=== PATIENT | male | born 1960 | race Caucasian/White ===

== ENCOUNTER 2017-01-29 16:59 | Inpatient (IN) ==
[2017-01-29] MEDS ORDERED: D5% in Water 1,000 ML IVC PRN (17:55)
[2017-01-29] MEDS ORDERED: Dextrose Gel 15 GM PO PRN ×2 (17:55)
[2017-01-29] MEDS ORDERED: *HR* Dextrose 50 % in Water (Syg) 50 ML SYRINGE IVP PRN (17:55)
[2017-01-29] MEDS ORDERED: Insulin DETEMIR 100 UNIT/ML per UNIT SQ ONE (21:00)
[2017-01-29] MEDS: Icosapent Ethyl [Vascepa] 1 GM PO SCH (21:20)
[2017-01-29] MEDS: Pregabalin 75 MG CAPSULE PO SCH (21:24)
[2017-01-29] MEDS: Insulin LISPRO 300 UNITS/3 ML VIAL SQ SCH (22:00)
[2017-01-30 05:26] LABS: Basophils # 0.1 K/mcL (0.0-0.2); Basophils % 1.1 %; Eosinophils # 0.3 K/mcL (0.0-0.6); Eosinophils % 3.2 %; Hematocrit 43.6 % (37.5-50.1); Hemoglobin 15.4 g/dL (12.9-16.9); Immature Granulocytes % 0.5 % (0-4); Lymphocytes # 2.3 K/mcL (0.6-4.6); Lymphocytes % 24.7 %; Mean Corpuscular HGB Conc 35.3 g/dL (31.6-35.5); Mean Corpuscular Hemoglobin 30.9 pg (28.0-33.3); Mean Corpuscular Volume 87.4 fL (83.0-100.0); Mean Platelet Volume 12.7 fL (9.4-12.4); Monocytes % 10.3 %; Neutrophils # 5.6 K/mcL (1.6-8.9); Platelet Count 172 K/mcL (140-400); Red Blood Count 4.99 M/mcL (4.19-5.50); Red Cell Distribution Width 13.2 % (11.5-14.5); Segmented Neutrophils % 60.2 %
[2017-01-30 05:39] LABS: BUN/Creatinine Ratio 21 (6-26); Blood Urea Nitrogen 16 mg/dL (8-26); Calcium 9.3 mg/dL (8.6-10.8); Carbon Dioxide 21 mEq/L (19-29); Chloride 105 mEq/L (98-109); Glucose 151 mg/dL (70-99); Osmolality,Calculated 288 (280-300); Potassium 3.8 mEq/L (3.5-4.5); Sodium 137 mEq/L (136-145); eGFR For African Americans > 60 (> 60); eGFR For Non-African Americans > 60 (> 60)
[2017-01-30] MEDS: Insulin LISPRO 300 UNITS/3 ML VIAL SQ SCH ×4 (07:48→21:00)
[2017-01-30] MEDS: Icosapent Ethyl [Vascepa] 1 GM PO SCH ×2 (08:30→16:40)
[2017-01-30] MEDS: Pregabalin 75 MG CAPSULE PO SCH ×2 (08:36→21:00)
[2017-01-30] MEDS: *HR* Metformin 500 MG TABLET PO SCH ×2 (08:36→16:40)
[2017-01-30] MEDS: Aspirin 81 MG TAB.CHEW PO SCH (08:36)
[2017-01-30] MEDS ORDERED: Lisinopril 20 MG TABLET PO SCH (09:00)
--- NOTE | 2017-01-30 09:14 | Internal Med History&Physical ---
Date of Encounter: 01/31/17 Time of Encounter: 09:43 Assessment and Plan (1) CVA (cerebral vascular accident) Current visit: No Status: Acute S/P acute CVA isthmic in nature . Unfortunately he was not a candidate for thrombolytics. CT shows right parietal are and internal capsule affected . Will need to continue to provide supportive care . Continue his medications . Rehab consults sent. Qualifiers: CVA mechanism: occlusion Precerebral and cerebral artery: middle cerebral artery Laterality of affected vessel: right Qualified Code(s): I63.511 - Cerebral infarction due to unspecified occlusion or stenosis of right middle cerebral artery (2) Diabetes 1.5, managed as type 2 Current visit: Yes Status: Chronic hx of long uncontrolled DM on Insulin at the present time his last HBA1c done at [facility] was 13. Wi need to reeducate him on his diet ,etc He admits ot being non complaint Continue resent medication and adjust his insulin as needed (3) Essential (primary) hypertension Current visit: Yes Status: Chronic he is on meds for his HTN continue present medications (4) Peripheral angiopathy Current visit: Yes Status: Chronic pt is a vasculopath he has peripheral vascular disease mostprominent in his right side , he had seen a vascular surgeon in past and was treated conservatively . he needs to quit tobacco completely .He understand will start him on a patch (5) Hyperlipidemia Current visit: Yes Status: Chronic his lipids have been high and not well controlled especially his triglycerids.This all could also have been due to his non compliance and uncontrolled DM onces DM is controlled then his meds should be adjusted if needed He is on appropriate meds Qualifiers: Hyperlipidemia type: mixed hyperlipidemia Qualified Code(s): E78.2 - Mixed hyperlipidemia (6) Tobacco abuse Current visit: Yes Status: Chronic discussed with him in length the need to quit tobacco. he understands start on Nicotine patch May benefit with chantax however he needs to be ready . (7) Diabetic ulcer of foot associated with diabetes mellitus due to underlying condition, limited to breakdown of skin Current visit: Yes Status: Acute ulcer and skin care Qualifiers: Laterality: left Qualified Code(s): E08.621 - Diabetes mellitus due to underlying condition with foot ulcer; L97.521 - Non-pressure chronic ulcer of other part of left foot limited to breakdown of skin (8) Multinodular goiter (nontoxic) Current visit: Yes Status: Acute incidental finding when he had dopplers of his carotid he needs to have further assessment . Will order ultrasound of the thyroid to assess nodules TSH and T4 will this is an incidental finding further workup will be done during this admission Internal Medicine - H&P: HPI Admitted From: Intrahospital Transfer (Transfered from [facility]) History of present illness: Mr. Nino is a 56 year old male was seen on few days ago in the ED at [facility] when he woke up in the morning and noticed that he was unable to to ut on his clothes. he was having difficulty in standing and using his left side . At that time it couldn't be determined the time of his stroke. he was sent to [facility] for further management and treatment . Pt denied that he had chest pain nausea vomiting or diarrhea No palpitation dizziness or any other complains suggestive of preemptive symptoms of stoke before he went to sleep . He had devleoped complete paralysis on his left side . He was admitted and treated and transferred to [facility] for his rehab At the present [facility] other then his inability to move his left side he is doing fine and defines any complains. He denies any chest pain SOB palpation , orthopnea nausea vomiting or diarrhea Some frequency in urination otherwise no burning in urine . No headache ,vision issues burning pain in legs etc. Past Med Surg Social Fam HX - Past Medical History Medical history: diabetes, hyperlipidemia, hypertension - Past Surgical History Surgical History: no surgical history, LE vascular intervention (has PVD follows with vascular surgon Left leg angiogram done but no intervention) - Social History Smoking Status: Current every day smoker Alcohol use: none Drug use: none Internal Medicine - H&P: Meds Atorvastatin [Lipitor] 80 mg PO HS 01/29/17 [History] Clopidogrel [Plavix] 75 mg PO DAILY 01/29/17 [History] Icosapent Ethyl [Vascepa] 1 gm PO BID 01/29/17 [History] Insulin Glargine,Hum.rec.anlog [Lantus Solostar] 40 unit SQ HS 01/29/17 [History ] Lisinopril [Zestril] 20 mg PO DAILY 01/29/17 [History] Pregabalin [Lyrica] 300 mg PO BID 01/29/17 [History] metFORMIN [Glucophage] 1,000 mg PO BIDWM 01/29/17 [History] Allergies No Known Allergies Allergy (Verified 01/26/17 10:17) All Systems PM: A 10-system review of systems was performed and is negative for pertinent findings except as documented above in the HPI. - Constitutional Constitutional: as per HPI, weakness, no chills, no excessive sweating, no fatigue, no fever(s), no falls, no lethargy, no malaise, no night sweats, no weight gain Additional comments: wekaness in his left side - EENT Eyes: no blurry vision, no change in vision, no dry eye, no pain, no photophobia , no seeing flashes Additional comments: mild redness noted in left eye Additional comments: no abnormality noted - Breasts Breasts: no mass, no nipple discharge, no skin changes, no swelling - Cardiovascular Cardiovascular ROS IM: no chest pain, no claudication, no diaphoresis, no dyspnea, no dyspnea on exertion, no edema, no lightheadedness, no orthopnea - Respiratory Respiratory: no cough, no dyspnea, no hemoptysis, no dyspnea on exertion, no wheezing, no pain on inspiration, no chest congestion - Gastrointestinal Gastrointestinal: no abdominal pain, no bloating, no constipation, no diarrhea, no dyspepsia, no dysphagia, no hematemesis, no nausea, no vomiting - Genitourinary Genitourinary ROS male: nocturia, urinary frequency, urinary hesitancy, no dysuria, no genital pain, no hematuria, no scrotal swelling, no testicular mass - Musculoskeletal Musculoskeletal ROS IM: no back pain - Neurological Neurological ROS: abnormal gait, focal weakness, weakness (left side weakness ) , no dizziness, no headache(s), no loss of vision, no memory loss - Psychiatric Additional comments: none - Hematologic/Lymphatic Hematologic/Lymphatic: no easy bleeding - Constitutional Vitals: Temp Pulse Resp BP Pulse Ox 98.2 F 77 20 124/69 93 01/30/17 07:02 01/30/17 07:02 01/30/17 07:02 01/30/17 07:02 01/30/17 07:02 General appearance: Present: A&O X 3, pleasant, no acute distress - Head Head exam: Present: normal inspection - Eye Additional comments: mild redness left eye noted mild flatening on forehead on left side but able to move and look upwards - Expanded ENT Exam Mouth exam: Present: tongue normal (mild deviation to the right side angle of mouth . no tongue deviation noted ) - Neck Neck exam general surgery: Present: normal inspection. Absent: lymphadenopathy , tenderness Additional comments: derease pulses on the left side when compared to right side no bruit appericiated - Respiratory Respiratory exam: Present: CTAB. Absent: chest wall tenderness, decreased breath sounds, prolonged expiratory phase, rhonchi, stridor, wheezes, tachypnea - Cardiovascular Cardiovascular exam: Present: RRR. Absent: irregular rhythm, JVD, tachycardia - GI/Abdominal GI/Abdominal exam: Present: normal bowel sounds, soft. Absent: mass, rebound, rigid, tenderness - Rectal Rectal exam: Present: deferred - Additional comments: Deferred - Extremities Exam Extremities exam: Present: warm Additional comments: right leg decreased pulses both pedal and femoral , same on the left side no bruits appreciated. he has ulcer left . - Back Exam Back exam: Present: normal inspection. Absent: muscle spasm, tenderness - Neurological Exam Neurological exam: Present: oriented X3, reflexes normal (left side weakness upper and lower limb . mild deviatiopn of angle of outh ,3,6 nerves seems intact , 10 and 12 th intact. angle of mouth deviated and mild flatening affecting 7th nerve, 11th nerve impacted unable to move his trapezius,9,10 12 nerves seems intact ), facial droop Additional comments: pt is neglecting his left side . 7th nerve impacted with deviation of angle of mouth , 34 5 6 th nerve seems intact , 9,10 11 12th intact . Tongue is midline no difficulty in swallowing .hearing is intact Left upper and lower limb unable to move . Reflex are grossly intact right to is upgoing left could do since he has dressing changed recently on his wound - Psychiatric Psychiatric exam: Present: normal mood (seems normal ) - Skin Additional comments: has wound on left foot . Skinother maxwell seems normal sensations seems normal at the present time Internal Med - H&P Results - Labs CBC & Chem 7: 01/31/17 05:45 01/31/17 05:45 Labs: Short CBC 01/30/17 Range/Units 05:15 WBC 9.3 (4.3-11.1) K/mcL Hgb 15.4 (12.9-16.9) g/dL Hct 43.6 (37.5-50.1) % Plt Count 172 (140-400) K/mcL Neutrophils # 5.6 (1.6-8.9) K/mcL [facility] 01/30/17 05:15 Sodium 137 Potassium 3.8 Chloride 105 Carbon Dioxide 21 BUN 16 Creatinine 0.78 Glucose 151 H Calcium 9.3
[2017-01-30] MEDS: Lisinopril 20 MG TABLET PO SCH (09:44)
[2017-01-30 18:02] LABS: Hemoglobin A1C 12.8 %
[2017-01-30] MEDS: Insulin DETEMIR 100 UNIT/ML X5UNITS SQ SCH (20:59)
[2017-01-31 05:58] LABS: Basophils # 0.1 K/mcL (0.0-0.2); Basophils % 1.3 %; Eosinophils # 0.3 K/mcL (0.0-0.6); Eosinophils % 3.9 %; Hematocrit 43.3 % (37.5-50.1); Hemoglobin 15.1 g/dL (12.9-16.9); Immature Granulocytes % 0.6 % (0-4); Lymphocytes # 2.2 K/mcL (0.6-4.6); Mean Corpuscular HGB Conc 34.9 g/dL (31.6-35.5); Mean Corpuscular Hemoglobin 30.8 pg (28.0-33.3); Mean Corpuscular Volume 88.4 fL (83.0-100.0); Mean Platelet Volume 12.6 fL (9.4-12.4); Monocytes % 11.2 %; Platelet Count 167 K/mcL (140-400); Red Cell Distribution Width 13.2 % (11.5-14.5)
[2017-01-31 06:15] LABS: BUN/Creatinine Ratio 26 (6-26); Blood Urea Nitrogen 19 mg/dL (8-26); Calcium 9.1 mg/dL (8.6-10.8); Carbon Dioxide 20 mEq/L (19-29); Chloride 106 mEq/L (98-109); Glucose 138 mg/dL (70-99); Osmolality,Calculated 288 (280-300); Potassium 4.1 mEq/L (3.5-4.5); Sodium 137 mEq/L (136-145); eGFR For African Americans > 60 (> 60); eGFR For Non-African Americans > 60 (> 60)
--- NOTE | 2017-01-31 07:57 | Internal Med Progress Note ---
Date of Encounter: 01/31/17 Time of Encounter: 07:55 - Assessment and plan (1) CVA (cerebral vascular accident) Current Visit: No Status: Acute Assessment and plan: Acute CVA , territory right middle Artery most likely . isomeric in nature . Left side paralysis , no issues with swallowing. Qualifiers: CVA mechanism: occlusion Precerebral and cerebral artery: middle cerebral artery Laterality of affected vessel: right Qualified Code(s): I63.511 - Cerebral infarction due to unspecified occlusion or stenosis of right middle cerebral artery (2) Diabetes 1.5, managed as type 2 Current Visit: Yes Status: Chronic Assessment and plan: Diabetes. Patient's blood sugar has been in poor control. At the present time blood sugar is reasonably well. We continue to monitor and adjust his medications as needed. (3) Essential (primary) hypertension Current Visit: Yes Status: Chronic Assessment and plan: Essential hypertension on multiple medications. Blood pressure is reasonably well control at the present time. No change in medication. Continue present regimen. (4) Peripheral angiopathy Current Visit: Yes Status: Chronic Assessment and plan: Patient has history of peripheral vascular disease including's stenosis in a in carotid arteries. Patient has a long history of smoking including history of diabetes and hypertension. At the present time patient is motivated to quit his tobacco. Continue present regimen. (5) Hyperlipidemia Current Visit: Yes Status: Chronic Assessment and plan: He has a history of hyperlipidemia mixed in nature. His set triglycerides as well as LDL were high. He is on high dose of Lipitor along with other supportive management. T Qualifiers: Hyperlipidemia type: mixed hyperlipidemia Qualified Code(s): E78.2 - Mixed hyperlipidemia (6) Tobacco abuse Current Visit: Yes Status: Chronic Assessment and plan: Patient is motivated to quit tobacco has not spoken with the last one week. Not interested in taking any nicotine. Will approach him again and need for needed had nicotine or other supportive management. (7) Diabetic ulcer of foot associated with diabetes mellitus due to underlying condition, limited to breakdown of skin Current Visit: Yes Status: Acute Qualifiers: Laterality: left Qualified Code(s): E08.621 - Diabetes mellitus due to underlying condition with foot ulcer; L97.521 - Non-pressure chronic ulcer of other part of left foot limited to breakdown of skin (8) Multinodular goiter (nontoxic) Current Visit: Yes Status: Acute Assessment and plan: Incidental finding out nodules in his quieter. Especially on the left side. An ultrasound has been requested labs pending. - Subjective Interval history: Patient denies any complaints today. He slept well. No complaints of chest pains nausea vomiting or diarrhea. No complaints of pain in his legs. No new issues. He had CT of the chest and yesterday to assess incidental finding of nodules which were reported from [facility]. He does not reveal any nodules. Reason I have is evidence of nodule in his thyroid and ultrasound is pending. - Constitutional Vitals: Temp Pulse Resp BP Pulse Ox 98.0 F 56 20 138/64 100 01/31/17 07:13 01/31/17 07:13 01/31/17 07:13 01/31/17 07:13 01/31/17 07:13 General appearance: Present: A&O X 3, pleasant, no acute distress, answers questions appropriately - Neck Additional comments: i have not been able to palapate his nodule which is an incidental finding on CT , no enlargement felt on examination - Respiratory Respiratory exam: Present: CTAB. Absent: chest wall tenderness, rhonchi, stridor, wheezes, tachypnea - Cardiovascular Cardiovascular exam: Present: RRR. Absent: diastolic murmur, JVD, systolic murmur - GI/Abdominal GI/Abdominal exam: Present: normal bowel sounds, soft. Absent: distended, guarding, rebound - Skin Additional comments: mild area o induraiton noted in side his thighs and bottom . Will keep an eye. No ulceration noted .He has diabetic foot ulcer .Wound care to continue dressing Internal Medicine: Result - Labs CBC & Chem 7: 01/31/17 05:45 01/31/17 05:45 Labs: Short CBC 01/31/17 Range/Units 05:45 WBC 8.7 (4.3-11.1) K/mcL Hgb 15.1 (12.9-16.9) g/dL Hct 43.3 (37.5-50.1) % Plt Count 167 (140-400) K/mcL Neutrophils # 5.0 (1.6-8.9) K/mcL BMP 01/31/17 05:45 Sodium 137 Potassium 4.1 Chloride 106 Carbon Dioxide 20 BUN 19 Creatinine 0.74 Glucose 138 H Calcium 9.1 - Impressions Impressions Chest CT 01/30/17 15:11 IMPRESSION: 1. No active cardiopulmonary disease 2. Pulmonary emphysema 3. Calcific Coronary atherosclerosis 4. Left thyroid nodule. Consider thyroid ultrasound for further evaluation D/ / Garry Ball MD / Garry Ball MD Interpreting Provider: Garry Ball MD Consult Discharge Plan - Plan Referrals: Nori Le MD [Primary Care Provider] -
[2017-01-31] MEDS: Insulin LISPRO 300 UNITS/3 ML VIAL SQ SCH ×4 (08:24→20:42)
[2017-01-31] MEDS: Aspirin 81 MG TAB.CHEW PO SCH (08:26)
[2017-01-31] MEDS: Lisinopril 20 MG TABLET PO SCH (08:26)
[2017-01-31] MEDS: *HR* Metformin 500 MG TABLET PO SCH ×2 (08:26→17:02)
[2017-01-31] MEDS: Pregabalin 75 MG CAPSULE PO SCH ×2 (08:26→21:12)
[2017-01-31] MEDS: Icosapent Ethyl [Vascepa] 1 GM PO SCH ×2 (08:27→17:03)
[2017-01-31] MEDS: Insulin DETEMIR 100 UNIT/ML X5UNITS SQ SCH (21:13)
[2017-02-01] MEDS: Insulin LISPRO 300 UNITS/3 ML VIAL SQ SCH ×4 (07:36→22:43)
[2017-02-01] MEDS: *HR* Metformin 500 MG TABLET PO SCH ×2 (08:15→17:58)
[2017-02-01] MEDS: Lisinopril 20 MG TABLET PO SCH (08:15)
[2017-02-01] MEDS: Aspirin 81 MG TAB.CHEW PO SCH (08:16)
[2017-02-01] MEDS: Pregabalin 75 MG CAPSULE PO SCH ×2 (08:16→22:42)
[2017-02-01] MEDS: Icosapent Ethyl [Vascepa] 1 GM PO SCH ×2 (08:16→17:59)
--- NOTE | 2017-02-01 08:55 | Internal Med Progress Note ---
Date of Encounter: 02/01/17 Time of Encounter: 08:52 - Assessment and plan (1) CVA (cerebral vascular accident) Current Visit: No Status: Acute Assessment and plan: CVA. And rehab and doing well. Continue present medications. Complaining of some lows bowel movements. Will assess his medications and request for C diff. Qualifiers: CVA mechanism: occlusion Precerebral and cerebral artery: middle cerebral artery Laterality of affected vessel: right Qualified Code(s): I63.511 - Cerebral infarction due to unspecified occlusion or stenosis of right middle cerebral artery (2) Diabetes 1.5, managed as type 2 Current Visit: Yes Status: Chronic Assessment and plan: Blood sugar 138 this morning. Present medications. Adjust medication that digit. (3) Essential (primary) hypertension Current Visit: Yes Status: Chronic (4) Peripheral angiopathy Current Visit: Yes Status: Chronic Assessment and plan: History of peripheral postural disease. He has a friend. He has stopped tobacco this should help his vascular disease as well. He does have an ulcer on his left foot likely a combination of diabetic neuropathy including PVD. (5) Hyperlipidemia Current Visit: Yes Status: Chronic Qualifiers: Hyperlipidemia type: mixed hyperlipidemia Qualified Code(s): E78.2 - Mixed hyperlipidemia (6) Tobacco abuse Current Visit: Yes Status: Chronic (7) Diabetic ulcer of foot associated with diabetes mellitus due to underlying condition, limited to breakdown of skin Current Visit: Yes Status: Acute Qualifiers: Laterality: left Qualified Code(s): E08.621 - Diabetes mellitus due to underlying condition with foot ulcer; L97.521 - Non-pressure chronic ulcer of other part of left foot limited to breakdown of skin (8) Multinodular goiter (nontoxic) Current Visit: Yes Status: Acute - Subjective Interval history: Patient denies any complaints today. No complaints of chest pain nausea vomiting or diarrhea. He slept well. He is participating in rehab. He is complaining of some loose bowel movement. Will will assess his medications and request for C diff. - Constitutional Vitals: Temp Pulse Resp BP Pulse Ox 97.6 F 52 18 141/58 97 02/01/17 07:24 02/01/17 07:24 02/01/17 07:24 02/01/17 07:24 02/01/17 07:24 General appearance: Present: A&O X 3, pleasant, no acute distress, answers questions appropriately - Neck Neck exam general surgery: Present: supple - Respiratory Respiratory exam: Present: CTAB. Absent: chest wall tenderness, decreased breath sounds, respiratory distress, rhonchi, tachypnea - Cardiovascular Cardiovascular exam: Present: RRR. Absent: diastolic murmur, JVD - GI/Abdominal GI/Abdominal exam: Present: normal bowel sounds, soft - Neurological Exam Additional comments: Is nearer examination is the same as before. Paralysis on the left side. To swallow with no difficulty Internal Medicine: Result - Labs CBC & Chem 7: 01/31/17 05:45 01/31/17 05:45 Consult Discharge Plan - Plan Referrals: Nori Le MD [Primary Care Provider] -
[2017-02-01] MEDS: Insulin DETEMIR 100 UNIT/ML X5UNITS SQ SCH (22:42)
[2017-02-02] MEDS: Insulin LISPRO 300 UNITS/3 ML VIAL SQ SCH ×4 (08:48→21:38)
[2017-02-02] MEDS: Aspirin 81 MG TAB.CHEW PO SCH (08:49)
[2017-02-02] MEDS: Lisinopril 20 MG TABLET PO SCH (08:49)
[2017-02-02] MEDS: Icosapent Ethyl [Vascepa] 1 GM PO SCH ×2 (08:49→19:01)
[2017-02-02] MEDS: Pregabalin 75 MG CAPSULE PO SCH ×2 (08:49→21:40)
[2017-02-02] MEDS: *HR* Metformin 500 MG TABLET PO SCH ×2 (08:49→18:53)
--- NOTE | 2017-02-02 11:51 | Internal Med Progress Note ---
Date of Encounter: 02/02/17 Time of Encounter: 11:49 - Assessment and plan (1) CVA (cerebral vascular accident) Current Visit: No Status: Acute Assessment and plan: Acute stroke left side. Stable no new change. Qualifiers: CVA mechanism: occlusion Precerebral and cerebral artery: middle cerebral artery Laterality of affected vessel: right Qualified Code(s): I63.511 - Cerebral infarction due to unspecified occlusion or stenosis of right middle cerebral artery (2) Diabetes 1.5, managed as type 2 Current Visit: Yes Status: Chronic Assessment and plan: Insulin-dependent diabetes.(4.4. in about his diet and need to have a better control. Seems but there is noncompliance on his part. Continue to reinforce.. (3) Essential (primary) hypertension Current Visit: Yes Status: Chronic Assessment and plan: Essential hypertension on multiple medications. Blood pressure is reasonably well control at the present time. No change in medication. Continue present regimen. (4) Peripheral angiopathy Current Visit: Yes Status: Chronic Assessment and plan: History of peripheral postural disease. He has a friend. He has stopped tobacco this should help his vascular disease as well. He does have an ulcer on his left foot likely a combination of diabetic neuropathy including PVD. (5) Hyperlipidemia Current Visit: Yes Status: Chronic Assessment and plan: He has a history of hyperlipidemia mixed in nature. His set triglycerides as well as LDL were high. He is on high dose of Lipitor along with other supportive management. T Qualifiers: Hyperlipidemia type: mixed hyperlipidemia Qualified Code(s): E78.2 - Mixed hyperlipidemia (6) Tobacco abuse Current Visit: Yes Status: Chronic Assessment and plan: Patient is motivated to quit tobacco has not spoken with the last one week. Not interested in taking any nicotine. Will approach him again and need for needed had nicotine or other supportive management. (7) Diabetic ulcer of foot associated with diabetes mellitus due to underlying condition, limited to breakdown of skin Current Visit: Yes Status: Acute Assessment and plan: He has bilateral foot ulcers. He also peripheral peripheral neuropathy. C Wound from left side has a small pocket of drainage noted . C/S sent.. He is afebrile white count is normal. Oral antibiotics most likely a mixed steve will consider starting him on oral antibiotics. Noted to have an ulcer with aschar on the right foot as well. Need to debride his wound to assess the extned of his ulcer .Xray feet both r/o Osteop May need an MRI . If needed may need to be seen by ware cleaner. Charcoat joints feet . Qualifiers: Laterality: left Qualified Code(s): E08.621 - Diabetes mellitus due to underlying condition with foot ulcer; L97.521 - Non-pressure chronic ulcer of other part of left foot limited to breakdown of skin (8) Multinodular goiter (nontoxic) Current Visit: Yes Status: Acute Assessment and plan: Labs pending , Ultrasound shows a nodule left lobe Needs further followup , possible FNA , refer to ENT for further assessment to [facility] (9) Charcot foot due to diabetes mellitus Current Visit: Yes Status: Acute Assessment and plan: Charcot feet both more on left side . Conservative treatment (10) Neuropathy Current Visit: Yes Status: Acute Assessment and plan: DM neuropathy poor sensations both feet (11) Obstructive apnea Current Visit: Yes Status: Acute Assessment and plan: pt has hx of sleep apnea. Apparently he did first study but never did the second one to get his mask and reading . Will attempt tp start CPAP whiel in the hospital . Titrate his oxygenation if he tolerates. There is considerable non compliance . Family giving conflicting information. - Subjective Interval history: He denies any complaints. States that he has some shortness of breath when he lays down flat. He denies any chest pain nausea vomiting or diarrhea no fever. Otherwise he feels the same as before. There is some conflicting information about his sleep apnea. Currently he may not be using the CPAP as ordered. - Constitutional Vitals: Temp Pulse Resp BP Pulse Ox 97.4 F L 54 16 125/95 97 02/01/17 19:10 02/01/17 19:10 02/01/17 19:10 02/01/17 19:10 02/01/17 19:10 General appearance: Present: A&O X 3, pleasant, no acute distress, answers questions appropriately - Head Head exam: Present: normal inspection - Eye Eye exam: Present: EOMI, PERRL - Neck Neck exam general surgery: Present: supple. Absent: tenderness, nuchal rigidity - Respiratory Respiratory exam: Present: CTAB. Absent: respiratory distress, rhonchi, stridor , wheezes, tachypnea - Cardiovascular Cardiovascular exam: Present: RRR. Absent: JVD - Expanded Lower Extremities Exam Foot/Toe exam: Present: amputation (lt small toe), deformity (Charcoat joints Wound both feet , left foot old ulcer ,has a pcoket of pus that came out , right foot aschar , needs debriment . ) - Neurological Exam Neurological exam: Present: alert, altered, oriented X3 Additional comments: No new change Paralysis. Left side upper and lower limb Internal Medicine: Result - Labs CBC & Chem 7: 01/31/17 05:45 01/31/17 05:45 - Impressions Impressions Thyroid Ultrasound 02/01/17 09:30 IMPRESSION: 1. Dominant 2.9 cm heterogeneous, hypoechoic nodule in the left thyroid lobe with mild internal vascularity. This nodule is amenable to ultrasound-guided FNA. D/ / 02/01/2017 11:03:32 Alena Sky MD / cheo Interpreting Provider: Alena Sky MD - Diagnostic Studies Other Images Additional comments: ultrasound thyroid nodule left lobe . Accessable for FNA Consult Discharge Plan - Plan Referrals: Nori Le MD [Primary Care Provider] -
[2017-02-02] MEDS: Insulin DETEMIR 100 UNIT/ML X5UNITS SQ SCH (21:39)
[2017-02-03] MEDS: *HR* Enoxaparin 40 MG/0.4 ML SYRINGE SQ SCH (05:35)
[2017-02-03 05:36] LABS: Basophils # 0.1 K/mcL (0.0-0.2); Basophils % 1.2 %; Eosinophils # 0.4 K/mcL (0.0-0.6); Eosinophils % 4.5 %; Hematocrit 42.4 % (37.5-50.1); Hemoglobin 14.6 g/dL (12.9-16.9); Immature Granulocytes % 0.6 % (0-4); Lymphocytes # 2.4 K/mcL (0.6-4.6); Lymphocytes % 27.2 %; Mean Corpuscular HGB Conc 34.4 g/dL (31.6-35.5); Mean Corpuscular Hemoglobin 30.2 pg (28.0-33.3); Mean Corpuscular Volume 87.8 fL (83.0-100.0); Mean Platelet Volume 12.4 fL (9.4-12.4); Monocytes % 11.6 %; Neutrophils # 4.9 K/mcL (1.6-8.9); Platelet Count 176 K/mcL (140-400); Red Blood Count 4.83 M/mcL (4.19-5.50); Red Cell Distribution Width 13.1 % (11.5-14.5); Segmented Neutrophils % 54.9 %
[2017-02-03 05:48] LABS: BUN/Creatinine Ratio 24 (6-26); Blood Urea Nitrogen 17 mg/dL (8-26); Calcium 9.2 mg/dL (8.6-10.8); Carbon Dioxide 22 mEq/L (19-29); Chloride 107 mEq/L (98-109); Glucose 133 mg/dL (70-99); Osmolality,Calculated 291 (280-300); Potassium 4.3 mEq/L (3.5-4.5); Sodium 139 mEq/L (136-145); eGFR For African Americans > 60 (> 60); eGFR For Non-African Americans > 60 (> 60)
[2017-02-03 06:05] LABS: Platelet Estimate Normal (Normal)
[2017-02-03] MEDS: Insulin LISPRO 300 UNITS/3 ML VIAL SQ SCH ×4 (07:37→22:00)
--- NOTE | 2017-02-03 07:54 | Internal Med Progress Note ---
Date of Encounter: 02/03/17 Time of Encounter: 07:51 - Assessment and plan (1) CVA (cerebral vascular accident) Current Visit: Yes Status: Acute Assessment and plan: CVA impacting left upper and lower limb . In rehab conitnue present treatment . Stable Qualifiers: CVA mechanism: occlusion Precerebral and cerebral artery: middle cerebral artery Laterality of affected vessel: right Qualified Code(s): I63.511 - Cerebral infarction due to unspecified occlusion or stenosis of right middle cerebral artery (2) Diabetes 1.5, managed as type 2 Current Visit: Yes Status: Chronic Assessment and plan: IIDDM doing fine , blood sugars better somewhat . Conitnue to adjsut his insulin as needed . Control diet (3) Essential (primary) hypertension Current Visit: Yes Status: Chronic Assessment and plan: Stable on present medications. (4) Peripheral angiopathy Current Visit: Yes Status: Chronic (5) Hyperlipidemia Current Visit: Yes Status: Chronic Assessment and plan: PVD moderate lower limbs onclduing carotid arteries . Aggressive management of blood sugar, lipids control and complete cessation of smoking would probably help controlling his symptoms . On plavix and Aspirin Qualifiers: Hyperlipidemia type: mixed hyperlipidemia Qualified Code(s): E78.2 - Mixed hyperlipidemia (6) Tobacco abuse Current Visit: Yes Status: Chronic (7) Diabetic ulcer of foot associated with diabetes mellitus due to underlying condition, limited to breakdown of skin Current Visit: Yes Status: Acute Assessment and plan: Diabetic Ulcres both sole of his feet . noted to have pus on left side above ulcer. Xray doesn't show any osteo . Will start on Doxycycline . 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 Will also consider getting MRI feet to r/o Osteo. . Pt doesnt have any ain ,otherwise he feels fine . Wound care is involved. Culture and sensitivity done Qualifiers: Laterality: left Qualified Code(s): E08.621 - Diabetes mellitus due to underlying condition with foot ulcer; L97.521 - Non-pressure chronic ulcer of other part of left foot limited to breakdown of skin (8) Multinodular goiter (nontoxic) Current Visit: Yes Status: Acute (9) Charcot foot due to diabetes mellitus Current Visit: Yes Status: Acute (10) Neuropathy Current Visit: Yes Status: Acute (11) Obstructive apnea Current Visit: Yes Status: Acute Assessment and plan: Start CPAP for night tolerated well till 2 Am then removed due to mask hurting him . Will adjust and continue to use CPAP he will need a CPAP machine at hime - Subjective Interval history: H he denies any complaints from any chest pain nausea vomiting or diarrhea. He slept well. He was able to use his CPAP until 202 in the morning however have removed his mask as it started hurting him know is of any fevers chills. Debridement officer foot ulcers done yesterday which showed a pass from left ulcer. X-rays done there is no evidence of osteomyelitis per x-rays no evidence of any foreign body. His stool was well formed and denies any diarrhea which she had complained earlier. Based on his overall picture he is not his C diff precautions have been removed. TSH is within normal limits. He has been referred to ENT for further assessment of his nodule in left thyroid lobe. - Constitutional Vitals: Temp Pulse Resp BP Pulse Ox 97.3 F L 69 16 128/75 95 02/03/17 07:00 02/03/17 07:00 02/03/17 07:00 02/03/17 07:00 02/03/17 07:00 General appearance: Present: A&O X 3, pleasant, no acute distress, answers questions appropriately - Neck Neck exam general surgery: Present: supple. Absent: tenderness, nuchal rigidity - Respiratory Respiratory exam: Present: CTAB. Absent: respiratory distress, rhonchi, stridor , wheezes Additional comments: Lung examination is within normal limits. air entry is equal on both lungs. No reason IS APPRECIATED. - Cardiovascular Cardiovascular exam: Present: RRR. Absent: distant heart sounds, irregular rhythm, JVD Additional comments: Heartrate regular rate rhythm no murmurs appreciated. - GI/Abdominal GI/Abdominal exam: Present: normal bowel sounds, soft. Absent: distended, firm , guarding, rebound - Expanded Lower Extremities Exam 1 - Small ulcer stage 2, clean base . Small ocket of ulcer abouve ulcer where skin is intact , drained. and culture sents.wound team involved 2 - skin removed. See wound clinic notes for details - Neurological Exam Neurological exam: Present: alert, altered, oriented X3 Additional comments: His neurological examination is as before. The no change. Internal Medicine: Result - Labs CBC & Chem 7: 02/03/17 05:20 02/03/17 05:20 Labs: Short CBC 02/03/17 Range/Units 05:20 WBC 8.9 (4.3-11.1) K/mcL Hgb 14.6 (12.9-16.9) g/dL Hct 42.4 (37.5-50.1) % Plt Count 176 (140-400) K/mcL Neutrophils # 4.9 (1.6-8.9) K/mcL BMP 02/03/17 05:20 Sodium 139 Potassium 4.3 Chloride 107 Carbon Dioxide 22 BUN 17 Creatinine 0.72 Glucose 133 H Calcium 9.2 - Impressions Impressions Foot X-Ray 02/02/17 11:44 IMPRESSION: No acute osseous abnormality of the right foot. No plain film evidence of osteomyelitis. D/ / Mario Medina MD / Mario Medina MD Interpreting Provider: Mario Medina MD - VTE Deep Vein Thrombosis/Pulmonary Embolism Present on Admission: No Consult Discharge Plan - Plan Referrals: Nori Le MD [Primary Care Provider] -
[2017-02-03] MEDS: *HR* Metformin 500 MG TABLET PO SCH ×2 (08:00→17:04)
[2017-02-03] MEDS: Pregabalin 75 MG CAPSULE PO SCH ×2 (08:01→21:40)
[2017-02-03] MEDS: Doxycycline 100 MG CAPSULE PO SCH ×2 (08:01→21:40)
[2017-02-03] MEDS: Lisinopril 20 MG TABLET PO SCH (08:01)
[2017-02-03] MEDS: Aspirin 81 MG TAB.CHEW PO SCH (08:01)
[2017-02-03] MEDS: Icosapent Ethyl [Vascepa] 1 GM PO SCH (08:01)
[2017-02-03] MEDS ORDERED: Silvasorb 44.4 ML TUBE TP SCH (12:00)
[2017-02-03] MEDS ORDERED: Silvasorb 44.4 ML TUBE TP PRN (16:52)
[2017-02-03] MEDS: Insulin DETEMIR 100 UNIT/ML X5UNITS SQ SCH (21:41)
[2017-02-04 05:16] LABS: Basophils # 0.1 K/mcL (0.0-0.2); Basophils % 1.2 %; Eosinophils # 0.3 K/mcL (0.0-0.6); Eosinophils % 2.8 %; Hematocrit 41.8 % (37.5-50.1); Hemoglobin 14.6 g/dL (12.9-16.9); Immature Granulocytes % 0.4 % (0-4); Lymphocytes # 2.5 K/mcL (0.6-4.6); Lymphocytes % 25.2 %; Mean Corpuscular HGB Conc 34.9 g/dL (31.6-35.5); Mean Corpuscular Hemoglobin 30.4 pg (28.0-33.3); Mean Corpuscular Volume 87.1 fL (83.0-100.0); Mean Platelet Volume 12.9 fL (9.4-12.4); Monocytes % 10.3 %; Neutrophils # 5.9 K/mcL (1.6-8.9); Platelet Count 183 K/mcL (140-400); Segmented Neutrophils % 60.1 %
[2017-02-04 05:32] LABS: BUN/Creatinine Ratio 22 (6-26); Blood Urea Nitrogen 15 mg/dL (8-26); Calcium 9.3 mg/dL (8.6-10.8); Carbon Dioxide 21 mEq/L (19-29); Chloride 106 mEq/L (98-109); Glucose 146 mg/dL (70-99); Osmolality,Calculated 287 (280-300); Potassium 4.1 mEq/L (3.5-4.5); Sodium 137 mEq/L (136-145); eGFR For African Americans > 60 (> 60); eGFR For Non-African Americans > 60 (> 60)
[2017-02-04] MEDS: *HR* Enoxaparin 40 MG/0.4 ML SYRINGE SQ SCH (06:39)
[2017-02-04] MEDS: Patient Taking Own Medication 1 EACH PO SCH ×2 (08:17→17:37)
[2017-02-04] MEDS: Aspirin 81 MG TAB.CHEW PO SCH (08:17)
[2017-02-04] MEDS: *HR* Metformin 500 MG TABLET PO SCH ×2 (08:17→17:37)
[2017-02-04] MEDS: Lisinopril 20 MG TABLET PO SCH (08:18)
[2017-02-04] MEDS: Pregabalin 75 MG CAPSULE PO SCH ×2 (08:19→21:12)
[2017-02-04] MEDS: Insulin LISPRO 300 UNITS/3 ML VIAL SQ SCH ×4 (08:20→21:01)
[2017-02-04] MEDS: Doxycycline 100 MG CAPSULE PO SCH ×2 (08:20→21:12)
--- NOTE | 2017-02-04 08:45 | Internal Med Progress Note ---
Date of Encounter: 02/04/17 Time of Encounter: 08:42 - Assessment and plan (1) CVA (cerebral vascular accident) Current Visit: Yes Status: Acute Assessment and plan: No new change. In rehab continue present management. Qualifiers: CVA mechanism: occlusion Precerebral and cerebral artery: middle cerebral artery Laterality of affected vessel: right Qualified Code(s): I63.511 - Cerebral infarction due to unspecified occlusion or stenosis of right middle cerebral artery (2) Diabetes 1.5, managed as type 2 Current Visit: Yes Status: Chronic Assessment and plan: His blood sugars are improving. Continue present regimen and adjust medications as needed. (3) Essential (primary) hypertension Current Visit: Yes Status: Chronic Assessment and plan: Blood pressure reasonably well-controlled. No new change. (4) Peripheral angiopathy Current Visit: Yes Status: Chronic Assessment and plan: The PVD as before continue present medication. (5) Hyperlipidemia Current Visit: Yes Status: Chronic Assessment and plan: No new change. On medications for his high triglycerides as well as LDL. Once his blood sugars are better control its expected this will impact his triglycerides as well. Qualifiers: Hyperlipidemia type: mixed hyperlipidemia Qualified Code(s): E78.2 - Mixed hyperlipidemia (6) Tobacco abuse Current Visit: Yes Status: Chronic Assessment and plan: He seems quite motivated at the present time to quit tobacco. (7) Diabetic ulcer of foot associated with diabetes mellitus due to underlying condition, limited to breakdown of skin Current Visit: Yes Status: Acute Assessment and plan: Diabetic ulcer. 03. [place] of the feet had been ordered to get to assess osteomyelitis.. Cultural sensitivity shows staph aureus Which is sensitive to doxycycline. Plan is to continue plan is to continue medications there is evidence of Sri mellitus we will need a long-term antibiotic use At least for 6 straight weeks Qualifiers: Laterality: left Qualified Code(s): E08.621 - Diabetes mellitus due to underlying condition with foot ulcer; L97.521 - Non-pressure chronic ulcer of other part of left foot limited to breakdown of skin (8) Multinodular goiter (nontoxic) Current Visit: Yes Status: Acute Assessment and plan: TSH is normal. He is scheduled to see ENT for biopsy in the next few weeks. This can also be done as an outpatient. (9) Charcot foot due to diabetes mellitus Current Visit: Yes Status: Acute Assessment and plan: Stable at the present time no new change. (10) Neuropathy Current Visit: Yes Status: Acute (11) Obstructive apnea Current Visit: Yes Status: Acute Assessment and plan: Need to adjust his mask as he has not used his CPAP last night will continue to follow. - Subjective Interval history: He he states that he did not sleep well last night. Have complained of some shortness of breath he denies any shortness of breath at the present time. Cough no chest pains did not use his CPAP apparently due to issues with the mask. No fever or chills. This morning he does not seem short of breath and looks his normal self. No pain no fever. - Constitutional Vitals: Temp Pulse Resp BP Pulse Ox 97.5 F L 64 14 111/60 96 02/04/17 07:00 02/04/17 07:00 02/04/17 07:00 02/04/17 07:00 02/04/17 07:00 General appearance: Present: A&O X 3, pleasant, no acute distress, answers questions appropriately - Head Head exam: Present: normocephalic - Eye Eye exam: Present: EOMI, PERRL - Respiratory Respiratory exam: Present: CTAB. Absent: respiratory distress, rhonchi, wheezes , tachypnea Additional comments: Although he complains of shortness of breath today. He does not seem to be in distress. If pulse ox is 98% and above. There is no evidence of any lease. Examination 8 entries equal on both sides. Appreciate any rales or crackles or rhonci. - Cardiovascular Cardiovascular exam: Present: RRR. Absent: JVD Additional comments: No JV D or heptojuglar reflux noted . No Peter Garcia either. - GI/Abdominal GI/Abdominal exam: Present: normal bowel sounds, soft. Absent: distended, guarding, rigid - Expanded Lower Extremities Exam Foot/Toe exam: Present: laceration (he has ulcers both feet wound care on goging no change ) - Neurological Exam Additional comments: His near neurological examination is same as before. To avoid the left side. He is alert oriented and cooperative. Paralysis on the side. No new change. Internal Medicine: Result - Labs CBC & Chem 7: 02/04/17 05:00 02/04/17 05:00 Labs: Short CBC 02/04/17 Range/Units 05:00 WBC 9.8 (4.3-11.1) K/mcL Hgb 14.6 (12.9-16.9) g/dL Hct 41.8 (37.5-50.1) % Plt Count 183 (140-400) K/mcL Neutrophils # 5.9 (1.6-8.9) K/mcL BMP 02/04/17 05:00 Sodium 137 Potassium 4.1 Chloride 106 Carbon Dioxide 21 BUN 15 Creatinine 0.68 L Glucose 146 H Calcium 9.3 - VTE Deep Vein Thrombosis/Pulmonary Embolism Present on Admission: No Consult Discharge Plan - Plan Referrals: Nori Le MD [Primary Care Provider] -
[2017-02-04] MEDS: Insulin DETEMIR 100 UNIT/ML X5UNITS SQ SCH (21:12)
[2017-02-05] MEDS: *HR* Enoxaparin 40 MG/0.4 ML SYRINGE SQ SCH (06:16)
[2017-02-05] MEDS: Patient Taking Own Medication 1 EACH PO SCH ×2 (08:00→17:27)
[2017-02-05] MEDS: Insulin LISPRO 300 UNITS/3 ML VIAL SQ SCH ×4 (08:42→20:47)
--- NOTE | 2017-02-05 08:42 | Internal Med Progress Note ---
Date of Encounter: 02/05/17 Time of Encounter: 08:39 - Assessment and plan (1) CVA (cerebral vascular accident) Current Visit: Yes Status: Acute Assessment and plan: Continue present management. No new change stable. Qualifiers: CVA mechanism: occlusion Precerebral and cerebral artery: middle cerebral artery Laterality of affected vessel: right Qualified Code(s): I63.511 - Cerebral infarction due to unspecified occlusion or stenosis of right middle cerebral artery (2) Diabetes 1.5, managed as type 2 Current Visit: Yes Status: Chronic Assessment and plan: His blood sugars are better control can you present management. (3) Essential (primary) hypertension Current Visit: Yes Status: Chronic Assessment and plan: Blood pressure is stable. Continue present management. (4) Peripheral angiopathy Current Visit: Yes Status: Chronic Assessment and plan: No new complaint. Stable continue present medication. (5) Hyperlipidemia Current Visit: Yes Status: Chronic Assessment and plan: Fasting lipids in the on Tuesday. I was continue present medication. Qualifiers: Hyperlipidemia type: mixed hyperlipidemia Qualified Code(s): E78.2 - Mixed hyperlipidemia (6) Tobacco abuse Current Visit: Yes Status: Chronic (7) Diabetic ulcer of foot associated with diabetes mellitus due to underlying condition, limited to breakdown of skin Current Visit: Yes Status: Acute Assessment and plan: Diabetic ulcers on both feet. MRI shows no osteomyelitis. There is cellulitis on the left foot is grown staph aureus which is sensitive to doxycycline plan is to continue oral antibiotics for at least 10 days. Can you present wound management. Qualifiers: Laterality: left Qualified Code(s): E08.621 - Diabetes mellitus due to underlying condition with foot ulcer; L97.521 - Non-pressure chronic ulcer of other part of left foot limited to breakdown of skin (8) Multinodular goiter (nontoxic) Current Visit: Yes Status: Acute Assessment and plan: Stable land is to have a follow-up with ENT for fine needle biopsy of his left nodule. (9) Charcot foot due to diabetes mellitus Current Visit: Yes Status: Acute (10) Neuropathy Current Visit: Yes Status: Acute (11) Obstructive apnea Current Visit: Yes Status: Acute Assessment and plan: He was able to use his CPAP last night. Seems to have helped. - Subjective Interval history: No new complaints today. He slept well last night. He was able to use his CPAP no nausea vomiting diarrhea. In these feet [place] chest pains and shortness of breath or any other complaints. - Constitutional Vitals: Temp Pulse Resp BP Pulse Ox 97.6 F 73 16 117/68 99 02/05/17 07:56 02/05/17 07:56 02/05/17 07:56 02/05/17 07:56 02/05/17 07:56 General appearance: Present: A&O X 3, pleasant, no acute distress, answers questions appropriately - Head Head exam: Present: normocephalic - Eye Eye exam: Present: EOMI, PERRL - ENT ENT exam: Present: mucous membranes moist - Neck Neck exam general surgery: Present: supple. Absent: tenderness, nuchal rigidity - Respiratory Respiratory exam: Present: CTAB, wheezes. Absent: respiratory distress, rhonchi , stridor Additional comments: Lung his lung examination is within normal limits. There is no no rhonchi or crackles. Air entry is equal on both sides. - Cardiovascular Cardiovascular exam: Present: RRR. Absent: diastolic murmur, distant heart sounds, JVD Additional comments: Heart rate is regular rate and rhythm. No murmurs or gallop appreciated. - GI/Abdominal GI/Abdominal exam: Present: normal bowel sounds, soft. Absent: distended, guarding, rebound Additional comments: Abdominal examination is within normal limits. bowel sounds are positive. - Neurological Exam Neurological exam: Present: CN II-XII intact, oriented X3 Additional comments: He had recent CVA affecting his left side. There is no new change. His neurological examination is stable. Internal Medicine: Result - Labs CBC & Chem 7: 02/04/17 05:00 02/04/17 05:00 - Impressions Impressions Foot MRI 02/04/17 09:32 IMPRESSION: 1. No evidence for osteomyelitis. 2. Likely ulceration along the plantar and lateral aspect of the midfoot with no underlying organized fluid collection identified. 3. Mild focal nonspecific enhancement of the subcutaneous tissues at the plantar foot adjacent to the 1st metatarsal head with no organized fluid collection identified at this site. 4. Tenosynovitis involving the proximal flexor hallucis longus tendon sheath. 5. Nonspecific subcutaneous edema of the dorsal soft tissues without corresponding enhancement. D/ / Gurdeep Moreno MD / Gurdeep Moreno MD Interpreting Provider: Gurdeep Moreno MD Foot MRI 02/04/17 09:32 IMPRESSION: Shallow soft tissue ulcerations along the plantar aspect of the foot without evidence of focal abscess. Mild enhancing soft tissue edema suggesting cellulitis. No evidence of osteomyelitis. Motion artifact severely degrades exam. D/ / 02/04/2017 14:23:29 Sahil Redman MD / brian Interpreting Provider: Sahil Redman MD - VTE Deep Vein Thrombosis/Pulmonary Embolism Present on Admission: No Consult Discharge Plan - Plan Referrals: Nori Le MD [Primary Care Provider] -
[2017-02-05] MEDS: Lisinopril 20 MG TABLET PO SCH (08:47)
[2017-02-05] MEDS: Doxycycline 100 MG CAPSULE PO SCH ×2 (08:47→20:54)
[2017-02-05] MEDS: Pregabalin 75 MG CAPSULE PO SCH ×2 (08:48→20:54)
[2017-02-05] MEDS: Aspirin 81 MG TAB.CHEW PO SCH (08:48)
[2017-02-05] MEDS: *HR* Metformin 500 MG TABLET PO SCH ×2 (08:48→17:47)
[2017-02-05] MEDS: Insulin DETEMIR 100 UNIT/ML X5UNITS SQ SCH (20:54)
[2017-02-06] MEDS: *HR* Enoxaparin 40 MG/0.4 ML SYRINGE SQ SCH (06:20)
--- NOTE | 2017-02-06 07:50 | Internal Med Progress Note ---
Date of Encounter: 02/06/17 Time of Encounter: 07:48 - Assessment and plan (1) CVA (cerebral vascular accident) Current Visit: Yes Status: Acute Assessment and plan: No change continue present management. Qualifiers: CVA mechanism: occlusion Precerebral and cerebral artery: middle cerebral artery Laterality of affected vessel: right Qualified Code(s): I63.511 - Cerebral infarction due to unspecified occlusion or stenosis of right middle cerebral artery (2) Diabetes 1.5, managed as type 2 Current Visit: Yes Status: Chronic Assessment and plan: Continue present management and adjusted insulin as needed. (3) Essential (primary) hypertension Current Visit: Yes Status: Chronic Assessment and plan: . His last 2 readings systolic were around 140. Target needs to be close to 120. Where will adjust his medications accordingly. (4) Peripheral angiopathy Current Visit: Yes Status: Chronic Assessment and plan: No new change. Continue present medications and management. (5) Hyperlipidemia Current Visit: Yes Status: Chronic Assessment and plan: Stable lipids have been ordered for Tuesday. Plan is to reassess his triglycerides and LDL since his blood sugars are much better control now. Qualifiers: Hyperlipidemia type: mixed hyperlipidemia Qualified Code(s): E78.2 - Mixed hyperlipidemia (6) Tobacco abuse Current Visit: Yes Status: Chronic (7) Diabetic ulcer of foot associated with diabetes mellitus due to underlying condition, limited to breakdown of skin Current Visit: Yes Status: Acute Assessment and plan: No new change in his management. On doxycycline for localized infection. Qualifiers: Laterality: left Qualified Code(s): E08.621 - Diabetes mellitus due to underlying condition with foot ulcer; L97.521 - Non-pressure chronic ulcer of other part of left foot limited to breakdown of skin (8) Multinodular goiter (nontoxic) Current Visit: Yes Status: Acute Assessment and plan: No new change. Plan is to have a FNA . ENT which has been scheduled (9) Charcot foot due to diabetes mellitus Current Visit: Yes Status: Acute Assessment and plan: No new change. Symptomatic management. (10) Neuropathy Current Visit: Yes Status: Acute Assessment and plan: Pain is stable. Continue present management. (11) Obstructive apnea Current Visit: Yes Status: Acute Assessment and plan: He is tolerating CPAP at present pressure continue present management and setting. - Subjective Interval history: No new complaints today. He tolerated his CPAP last night. He feels that he is sleeping much better and is less tired in the morning. Not complain of any shortness of breath. No chest pain and nausea vomiting or any other complaints. - Constitutional Vitals: Temp Pulse Resp BP Pulse Ox 98.2 F 59 14 140/67 96 02/06/17 07:00 02/06/17 07:00 02/06/17 07:00 02/06/17 07:00 02/06/17 07:00 General appearance: Present: A&O X 3, pleasant, no acute distress, answers questions appropriately - Eye Eye exam: Present: EOMI, PERRL - ENT ENT exam: Present: mucous membranes moist - Neck Neck exam general surgery: Present: supple. Absent: tenderness, nuchal rigidity - Respiratory Respiratory exam: Present: CTAB. Absent: respiratory distress, rhonchi, stridor , wheezes Additional comments: Air entry is equal on both lungs. There is no wheeze or crackles - Cardiovascular Cardiovascular exam: Present: RRR. Absent: diastolic murmur, JVD Additional comments: Elias is the regular grade molybdenum no murmurs of Jaspal appreciated. - Expanded Lower Extremities Exam Foot/Toe exam: Present: deformity (All surface on plantar surfaces of feet. Wound care ) - Neurological Exam Additional comments: His neurological examination is same as before no increase in his deficit. He continues to ignore his left side. 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 Internal Medicine: Result - Labs CBC & Chem 7: 02/04/17 05:00 02/04/17 05:00 - VTE Deep Vein Thrombosis/Pulmonary Embolism Present on Admission: No Consult Discharge Plan - Plan Referrals: Nori eL MD [Primary Care Provider] -
[2017-02-06] MEDS: Insulin LISPRO 300 UNITS/3 ML VIAL SQ SCH ×4 (08:31→21:16)
[2017-02-06] MEDS: Lisinopril 20 MG TABLET PO SCH (08:36)
[2017-02-06] MEDS: Aspirin 81 MG TAB.CHEW PO SCH (08:36)
[2017-02-06] MEDS: Pregabalin 75 MG CAPSULE PO SCH ×2 (08:36→21:01)
[2017-02-06] MEDS: Doxycycline 100 MG CAPSULE PO SCH ×2 (08:36→21:01)
[2017-02-06] MEDS: *HR* Metformin 500 MG TABLET PO SCH ×2 (08:36→17:18)
[2017-02-06] MEDS: Patient Taking Own Medication 1 EACH PO SCH ×2 (13:34→17:18)
[2017-02-06] MEDS: Insulin DETEMIR 100 UNIT/ML X5UNITS SQ SCH (21:08)
[2017-02-07] MEDS: *HR* Enoxaparin 40 MG/0.4 ML SYRINGE SQ SCH (06:08)
[2017-02-07 06:21] LABS: Basophils # 0.1 K/mcL (0.0-0.2); Basophils % 1.3 %; Eosinophils # 0.3 K/mcL (0.0-0.6); Eosinophils % 3.5 %; Hematocrit 41.4 % (37.5-50.1); Hemoglobin 14.4 g/dL (12.9-16.9); Immature Granulocytes % 0.6 % (0-4); Lymphocytes # 2.6 K/mcL (0.6-4.6); Lymphocytes % 26.3 %; Mean Corpuscular HGB Conc 34.8 g/dL (31.6-35.5); Mean Corpuscular Hemoglobin 30.4 pg (28.0-33.3); Mean Corpuscular Volume 87.3 fL (83.0-100.0); Monocytes # 1.1 K/mcL (0.0-1.3); Monocytes % 10.9 %; Neutrophils # 5.6 K/mcL (1.6-8.9); Platelet Count 182 K/mcL (140-400); Red Blood Count 4.74 M/mcL (4.19-5.50); Segmented Neutrophils % 57.4 %
[2017-02-07 06:50] LABS: BUN/Creatinine Ratio 17 (6-26); Blood Urea Nitrogen 13 mg/dL (8-26); Calcium 9.4 mg/dL (8.6-10.8); Carbon Dioxide 25 mEq/L (19-29); Chloride 106 mEq/L (98-109); Glucose 96 mg/dL (70-99); Osmolality,Calculated 292 (280-300); Potassium 3.9 mEq/L (3.5-4.5); Sodium 141 mEq/L (136-145); eGFR For African Americans > 60 (> 60); eGFR For Non-African Americans > 60 (> 60)
[2017-02-07 07:12] LABS: Chol/HDL Ratio 4.1 (0-4.9)
--- NOTE | 2017-02-07 07:45 | Internal Med Progress Note ---
Date of Encounter: 02/07/17 Time of Encounter: 07:42 - Assessment and plan (1) CVA (cerebral vascular accident) Current Visit: Yes Status: Acute Assessment and plan: No new change. Continue present regimen. Qualifiers: CVA mechanism: occlusion Precerebral and cerebral artery: middle cerebral artery Laterality of affected vessel: right Qualified Code(s): I63.511 - Cerebral infarction due to unspecified occlusion or stenosis of right middle cerebral artery (2) Diabetes 1.5, managed as type 2 Current Visit: Yes Status: Chronic Assessment and plan: His blood sugar continues to improve. Sliding scale and continue to monitor. Make adjustments as needed. (3) Essential (primary) hypertension Current Visit: Yes Status: Chronic Assessment and plan: Stable (4) Peripheral angiopathy Current Visit: Yes Status: Chronic (5) Hyperlipidemia Current Visit: Yes Status: Chronic Assessment and plan: Fasting lipids noted all within normal range for his conditions. His triglycerides are well-controlled. His HDL is low, continue present medications. Qualifiers: Hyperlipidemia type: mixed hyperlipidemia Qualified Code(s): E78.2 - Mixed hyperlipidemia (6) Tobacco abuse Current Visit: Yes Status: Chronic (7) Diabetic ulcer of foot associated with diabetes mellitus due to underlying condition, limited to breakdown of skin Current Visit: Yes Status: Acute Assessment and plan: Continue wound management. On oral doxycycline for infected ulcer on left side. Qualifiers: Laterality: left Qualified Code(s): E08.621 - Diabetes mellitus due to underlying condition with foot ulcer; L97.521 - Non-pressure chronic ulcer of other part of left foot limited to breakdown of skin (8) Multinodular goiter (nontoxic) Current Visit: Yes Status: Acute (9) Charcot foot due to diabetes mellitus Current Visit: Yes Status: Acute (10) Neuropathy Current Visit: Yes Status: Acute (11) Obstructive apnea Current Visit: Yes Status: Acute - Subjective Interval history: No new complaints today. Been sleeping well. He was able to use his CPAP for 3 to 4 hours at night. Still not comfortable with using mask all night. No other complaints - Constitutional Vitals: Temp Pulse Resp BP Pulse Ox 97.9 F 52 16 117/57 95 02/07/17 07:26 02/07/17 07:26 02/07/17 07:26 02/07/17 07:26 02/07/17 07:26 General appearance: Present: A&O X 3, pleasant, no acute distress, answers questions appropriately - Eye Eye exam: Present: EOMI, PERRL - ENT ENT exam: Present: mucous membranes moist - Neck Neck exam general surgery: Present: supple. Absent: nuchal rigidity - Respiratory Respiratory exam: Absent: rhonchi, stridor, wheezes Additional comments: Air entry is equal on both lungs. No crackles appreciated. - Cardiovascular Cardiovascular exam: Present: RRR. Absent: diastolic murmur Additional comments: Her heart rate is normal rate and rhythm no murmurs appreciated. s - GI/Abdominal GI/Abdominal exam: Present: normal bowel sounds, soft. Absent: diminished bowel sounds, firm, guarding Internal Medicine: Result - Labs CBC & Chem 7: 02/07/17 06:09 02/07/17 06:09 Labs: Short CBC 02/07/17 Range/Units 06:09 WBC 9.8 (4.3-11.1) K/mcL Hgb 14.4 (12.9-16.9) g/dL Hct 41.4 (37.5-50.1) % Plt Count 182 (140-400) K/mcL Neutrophils # 5.6 (1.6-8.9) K/mcL BMP 02/07/17 06:09 Sodium 141 Potassium 3.9 Chloride 106 Carbon Dioxide 25 BUN 13 Creatinine 0.77 Glucose 96 Calcium 9.4 - VTE Deep Vein Thrombosis/Pulmonary Embolism Present on Admission: No Consult Discharge Plan - Plan Referrals: Nori Le MD [Primary Care Provider] -
[2017-02-07] MEDS: Doxycycline 100 MG CAPSULE PO SCH ×2 (08:15→21:12)
[2017-02-07] MEDS: Pregabalin 75 MG CAPSULE PO SCH ×2 (08:15→21:12)
[2017-02-07] MEDS: *HR* Metformin 500 MG TABLET PO SCH ×2 (08:15→18:40)
[2017-02-07] MEDS: Aspirin 81 MG TAB.CHEW PO SCH (08:16)
[2017-02-07] MEDS: Lisinopril 20 MG TABLET PO SCH (08:16)
[2017-02-07] MEDS: Patient Taking Own Medication 1 EACH PO SCH ×2 (08:30→18:40)
[2017-02-07] MEDS: Insulin LISPRO 300 UNITS/3 ML VIAL SQ SCH ×3 (15:38→21:15)
[2017-02-07] MEDS: Insulin DETEMIR 100 UNIT/ML X5UNITS SQ SCH (21:13)
[2017-02-08] MEDS: *HR* Enoxaparin 40 MG/0.4 ML SYRINGE SQ SCH (05:13)
--- NOTE | 2017-02-08 08:00 | Internal Med Progress Note ---
Date of Encounter: 02/08/17 Time of Encounter: 07:58 - Assessment and plan (1) CVA (cerebral vascular accident) Current Visit: Yes Status: Acute Assessment and plan: No new change left side affected continue present management and rehab Qualifiers: CVA mechanism: occlusion Precerebral and cerebral artery: middle cerebral artery Laterality of affected vessel: right Qualified Code(s): I63.511 - Cerebral infarction due to unspecified occlusion or stenosis of right middle cerebral artery (2) Diabetes 1.5, managed as type 2 Current Visit: Yes Status: Chronic Assessment and plan: stable meds adjusted doing well (3) Essential (primary) hypertension Current Visit: Yes Status: Chronic Assessment and plan: Stable (4) Peripheral angiopathy Current Visit: Yes Status: Chronic Assessment and plan: Vascuapath stable at the present time. (5) Hyperlipidemia Current Visit: Yes Status: Chronic Assessment and plan: stable continue present medications LDL and Trigycerides within range Qualifiers: Hyperlipidemia type: mixed hyperlipidemia Qualified Code(s): E78.2 - Mixed hyperlipidemia (6) Tobacco abuse Current Visit: Yes Status: Chronic (7) Diabetic ulcer of foot associated with diabetes mellitus due to underlying condition, limited to breakdown of skin Current Visit: Yes Status: Acute Assessment and plan: on DOxy for his cellulites on left foot ulcer which has improved a lot no longer has any discharge , wound size is getting smaller . right side wound no discharge getting better as well . Plan to continue Doxy for total of 10 days . Qualifiers: Laterality: left Qualified Code(s): E08.621 - Diabetes mellitus due to underlying condition with foot ulcer; L97.521 - Non-pressure chronic ulcer of other part of left foot limited to breakdown of skin (8) Multinodular goiter (nontoxic) Current Visit: Yes Status: Acute (9) Charcot foot due to diabetes mellitus Current Visit: Yes Status: Acute Assessment and plan: stable (10) Neuropathy Current Visit: Yes Status: Acute (11) Obstructive apnea Current Visit: Yes Status: Acute Assessment and plan: CPAP continue , some what non complaint - Subjective Interval history: No new complaints today. slep well . didnt use his CPAP last night . There is considerable element of non compliance. He did sleep on and off . No other complains. Taking his medications . - Constitutional Vitals: Temp Pulse Resp BP Pulse Ox 98.0 F 50 16 138/59 94 02/08/17 07:00 02/08/17 07:00 02/08/17 07:00 02/08/17 07:00 02/08/17 07:00 General appearance: Present: A&O X 3, pleasant, no acute distress, answers questions appropriately - Eye Eye exam: Present: EOMI, PERRL - ENT ENT exam: Present: mucous membranes moist - Neck Neck exam general surgery: Present: normal inspection. Absent: tenderness, nuchal rigidity - Respiratory Respiratory exam: Present: CTAB. Absent: respiratory distress, rhonchi, wheezes - Cardiovascular Cardiovascular exam: Present: RRR. Absent: irregular rhythm, JVD, rubs - GI/Abdominal GI/Abdominal exam: Present: normal bowel sounds, soft. Absent: guarding, rebound - Other Additional findings: Wound care per nursing On Doxycycline for local infeciton . e Internal Medicine: Result - Labs CBC & Chem 7: 02/07/17 06:09 02/07/17 06:09 - VTE Deep Vein Thrombosis/Pulmonary Embolism Present on Admission: No Consult Discharge Plan - Plan Referrals: Nori Le MD [Primary Care Provider] -
[2017-02-08] MEDS: Insulin LISPRO 300 UNITS/3 ML VIAL SQ SCH ×4 (08:17→21:27)
[2017-02-08] MEDS: Aspirin 81 MG TAB.CHEW PO SCH (08:59)
[2017-02-08] MEDS: Lisinopril 20 MG TABLET PO SCH (08:59)
[2017-02-08] MEDS: Pregabalin 75 MG CAPSULE PO SCH ×2 (08:59→21:22)
[2017-02-08] MEDS: *HR* Metformin 500 MG TABLET PO SCH ×2 (08:59→16:54)
[2017-02-08] MEDS: Doxycycline 100 MG CAPSULE PO SCH ×2 (08:59→21:22)
[2017-02-08] MEDS: Patient Taking Own Medication 1 EACH PO SCH ×2 (09:00→16:54)
[2017-02-08] MEDS: Insulin DETEMIR 100 UNIT/ML X5UNITS SQ SCH (21:23)
[2017-02-09] MEDS: *HR* Enoxaparin 40 MG/0.4 ML SYRINGE SQ SCH (04:59)
[2017-02-09] MEDS: Insulin LISPRO 300 UNITS/3 ML VIAL SQ SCH ×4 (08:27→21:04)
[2017-02-09] MEDS: Lisinopril 20 MG TABLET PO SCH (08:28)
[2017-02-09] MEDS: *HR* Metformin 500 MG TABLET PO SCH ×2 (08:28→17:20)
[2017-02-09] MEDS: Patient Taking Own Medication 1 EACH PO SCH ×2 (08:29→17:20)
[2017-02-09] MEDS: Pregabalin 75 MG CAPSULE PO SCH ×2 (08:29→21:05)
[2017-02-09] MEDS: Doxycycline 100 MG CAPSULE PO SCH ×2 (08:29→21:03)
[2017-02-09] MEDS: Aspirin 81 MG TAB.CHEW PO SCH (08:29)
--- NOTE | 2017-02-09 09:27 | Internal Med Progress Note ---
Date of Encounter: 02/09/17 Time of Encounter: 09:21 - Assessment and plan (1) CVA (cerebral vascular accident) Current Visit: Yes Status: Acute Assessment and plan: stable Qualifiers: CVA mechanism: occlusion Precerebral and cerebral artery: middle cerebral artery Laterality of affected vessel: right Qualified Code(s): I63.511 - Cerebral infarction due to unspecified occlusion or stenosis of right middle cerebral artery (2) Diabetes 1.5, managed as type 2 Current Visit: Yes Status: Chronic Assessment and plan: Blood sugar getting better continue present management (3) Essential (primary) hypertension Current Visit: Yes Status: Chronic Assessment and plan: stable Continue present medication (4) Peripheral angiopathy Current Visit: No Status: Chronic Assessment and plan: stable (5) Hyperlipidemia Current Visit: Yes Status: Chronic Assessment and plan: stable no new change Qualifiers: Hyperlipidemia type: mixed hyperlipidemia Qualified Code(s): E78.2 - Mixed hyperlipidemia (6) Tobacco abuse Current Visit: Yes Status: Chronic (7) Diabetic ulcer of foot associated with diabetes mellitus due to underlying condition, limited to breakdown of skin Current Visit: Yes Status: Acute Assessment and plan: improving . Continue present management Qualifiers: Laterality: left Qualified Code(s): E08.621 - Diabetes mellitus due to underlying condition with foot ulcer; L97.521 - Non-pressure chronic ulcer of other part of left foot limited to breakdown of skin (8) Multinodular goiter (nontoxic) Current Visit: Yes Status: Acute (9) Charcot foot due to diabetes mellitus Current Visit: Yes Status: Acute (10) Neuropathy Current Visit: Yes Status: Acute Assessment and plan: pain is stable no new change (11) Obstructive apnea Current Visit: Yes Status: Chronic Assessment and plan: need to adjsut his Mask again complaining of straps causing issues . - Subjective Interval history: Doing well no new complains. Not using CPAP due to mask issues otherwise no complains NO SOB , chest pain Palpitaiton or any other complains - Constitutional Vitals: Temp Pulse Resp BP Pulse Ox 97.6 F 52 16 136/68 92 02/09/17 07:00 02/09/17 07:00 02/09/17 07:00 02/09/17 07:00 02/09/17 07:00 General appearance: Present: A&O X 3, pleasant, no acute distress, answers questions appropriately - Eye Eye exam: Present: EOMI, PERRL - Neck Neck exam general surgery: Present: full ROM, supple. Absent: nuchal rigidity - Respiratory Respiratory exam: Present: CTAB. Absent: respiratory distress, rhonchi, wheezes , tachypnea - Cardiovascular Cardiovascular exam: Present: RRR. Absent: JVD Additional comments: occasional PVC otherwise no new change - GI/Abdominal GI/Abdominal exam: Present: normal bowel sounds, soft. Absent: distended, firm , guarding - Extremities Exam Extremities exam: Absent: pedal edema, tenderness Additional comments: wound is improving slowly . No discharge Internal Medicine: Result - Labs CBC & Chem 7: 02/07/17 06:09 02/07/17 06:09 - VTE Deep Vein Thrombosis/Pulmonary Embolism Present on Admission: No Consult Discharge Plan - Plan Referrals: Nori Le MD [Primary Care Provider] -
--- NOTE | 2017-02-09 15:59 | Psychological Evaluation ---
Date of Encounter: 02/09/17 Time of Encounter: 10:30 History of Present Illness History of present illness: Mr. Nino is a 56 year old male admitted to [facility] for inpatient rehabilitation following an ischemic stroke (right hemisphere). He was seen on this date to assess his current cognitive and emotional functioning. Past Medical History Medical history: Significant for diabetes, hypertension, hyperlipidemia and peripheral vascular disease. He acknowledged that he has been non-compliant with management of his diabetes and his HTN and has been a heavy (2 pack/day cigarette smoker). - Psychiatric History Additional Psychiatric History: There is no history of psychiatric hospitalization or mental health counseling. In addition, there is no history of suicidal ideation, intention or plans. Mr. Nino reported that his mother has a history of "nervous breakdown" and was hospitalized at one point. Home Medications and Allergies Atorvastatin [Lipitor] 80 mg PO HS 01/29/17 [History] Clopidogrel [Plavix] 75 mg PO DAILY 01/29/17 [History] Icosapent Ethyl [Vascepa] 1 gm PO BID 01/29/17 [History] Insulin Glargine,Hum.rec.anlog [Lantus Solostar] 40 unit SQ HS 01/29/17 [History ] Lisinopril [Zestril] 20 mg PO DAILY 01/29/17 [History] Pregabalin [Lyrica] 300 mg PO BID 01/29/17 [History] metFORMIN [Glucophage] 1,000 mg PO BIDWM 01/29/17 [History] 3 Allergy/AdvReac Type Severity Reaction Status Date / Time No Known Allergies Allergy Verified 01/26/17 10:17 Social History - Social History Social History: Mr. Nino is to his third . He believes they have been approximately 15 years. He has a son from his first marriage who lives in [place]. His current has two children (daughter age 18 and son age 17) who live with him and his . He also stated that his mother lives with them. Mr. Nino stated that his is his social support and he jokingly described her as "the warden". Mr. Nino was on disability prior to his recent stroke, for the neuropathy in his feet. 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 Before this hospital admission, he spent his days taking care of his dogs, doing the laundry for his mother and watching TV. His hobby is deer hunting. - Tobacco Use Smoking Status: Current every day smoker (2 packs/day) - Alcohol Use Alcohol Use: none Cognitive/Emotional Assessment - Cognitive Ability Additional Findings: Mr. Nino was alert, attentive and fully oriented. Speech was clear, effective and fluent. Thought processes were goal-directed, coherent and logical. He was able to follow two-step complex commands. He performed within the average range on measures of confrontational naming, attention and sentence repetition. On a measure of delayed verbal recall, he performed within the severely impaired range. He exhibited problems with storage and retrieval on new information. His performance was assisted with recognition (multiple choice ) and category cueing. Mr. Nino presented as aware of his cognitive strengths and weaknesses. - Emotional Status Additional Findings: Mr. Nino was pleasant, cooperative and friendly. He acknowledged that he has been feeling "very frustrated" by his physical limitations post-stroke. He noted that he becomes easily upset and "mad at myself" when he is unable to do tasks that had been "easy" for him before. He also reported that he initially felt "very weepy" and had a sense of no emotional control, but he stated this has improved. Mood appeared somewhat depressed/sad. Affect was appropriate in range and intensity and congruent with mood. He stated that he uses humor to cope with frustration and his current situation and he has not given up hope for his recovery. We spent some time talking about stroke recovery and the rehab process. Assessment & Plan - Diagnosis (1) Cognitive deficit due to recent cerebral infarction (2) Adjustment disorder with depressed mood - Treatment Plan Treatment Plan/Recommendations: Will provide supportive counseling as needed and monitor for signs of depression while Mr. Nino is an inpatient at [facility]. His level of frustration/discouragement may be improved by providing him with written updates /progress towards his rehab goals. Procedures - Session Time Session Start Time: 10:30 Session Stop Time: 11:00
[2017-02-09] MEDS: Insulin DETEMIR 100 UNIT/ML X5UNITS SQ SCH (21:04)
[2017-02-10] MEDS: *HR* Enoxaparin 40 MG/0.4 ML SYRINGE SQ SCH (05:30)
--- NOTE | 2017-02-10 08:11 | Internal Med Progress Note ---
Date of Encounter: 02/10/17 Time of Encounter: 08:08 - Assessment and plan (1) CVA (cerebral vascular accident) Current Visit: Yes Status: Acute Assessment and plan: stable no new changes in rehab Qualifiers: CVA mechanism: occlusion Precerebral and cerebral artery: middle cerebral artery Laterality of affected vessel: right Qualified Code(s): I63.511 - Cerebral infarction due to unspecified occlusion or stenosis of right middle cerebral artery (2) Diabetes 1.5, managed as type 2 Current Visit: Yes Status: Chronic Assessment and plan: conintue present management adjust insulin . Blood sugars getting better (3) Essential (primary) hypertension Current Visit: Yes Status: Chronic Assessment and plan: stable no new change (4) Peripheral angiopathy Current Visit: No Status: Chronic Assessment and plan: stable no new change (5) Hyperlipidemia Current Visit: Yes Status: Chronic Qualifiers: Hyperlipidemia type: mixed hyperlipidemia Qualified Code(s): E78.2 - Mixed hyperlipidemia (6) Tobacco abuse Current Visit: Yes Status: Chronic (7) Diabetic ulcer of foot associated with diabetes mellitus due to underlying condition, limited to breakdown of skin Current Visit: Yes Status: Acute Assessment and plan: stable wound care continues , improving slowly , Stop Doxy after 10 days of treatment . 3 more days and then stop Qualifiers: Laterality: left Qualified Code(s): E08.621 - Diabetes mellitus due to underlying condition with foot ulcer; L97.521 - Non-pressure chronic ulcer of other part of left foot limited to breakdown of skin (8) Multinodular goiter (nontoxic) Current Visit: Yes Status: Acute Assessment and plan: He is scheduled for ENT FNA in February (9) Charcot foot due to diabetes mellitus Current Visit: Yes Status: Acute (10) Neuropathy Current Visit: Yes Status: Acute Assessment and plan: stable . now new change pain is well controlled (11) Obstructive apnea Current Visit: Yes Status: Chronic Assessment and plan: continues to have issues with adjusting . Changed his mask again with different straps . Will continue to monitor . - Subjective Interval history: Doing well no new complains. Not using CPAP due to straps says it hurts . Overall doing well - Constitutional Vitals: Temp Pulse Resp BP Pulse Ox 98.1 F 55 18 134/66 97 02/09/17 19:00 02/09/17 19:00 02/09/17 19:00 02/09/17 19:00 02/09/17 19:00 General appearance: Present: A&O X 3, pleasant, no acute distress, answers questions appropriately - Eye Eye exam: Present: EOMI, PERRL - Neck Neck exam general surgery: Present: full ROM, supple. Absent: nuchal rigidity - Respiratory Respiratory exam: Present: CTAB. Absent: respiratory distress, stridor, wheezes - Cardiovascular Cardiovascular exam: Present: RRR. Absent: irregular rhythm, JVD - GI/Abdominal GI/Abdominal exam: Present: normal bowel sounds, soft. Absent: rebound, rigid - Extremities Exam Extremities exam: Absent: pedal edema, tenderness - Neurological Exam Neurological exam: Present: altered, oriented X3 Additional comments: No new complains Weakness left side stable Internal Medicine: Result - Labs CBC & Chem 7: 02/07/17 06:09 02/07/17 06:09 - VTE Deep Vein Thrombosis/Pulmonary Embolism Present on Admission: No Consult Discharge Plan - Plan Referrals: Nori Le MD [Primary Care Provider] -
[2017-02-10] MEDS: Doxycycline 100 MG CAPSULE PO SCH ×2 (08:50→21:48)
[2017-02-10] MEDS: Lisinopril 20 MG TABLET PO SCH (08:50)
[2017-02-10] MEDS: Aspirin 81 MG TAB.CHEW PO SCH (08:51)
[2017-02-10] MEDS: Pregabalin 75 MG CAPSULE PO SCH ×2 (08:51→21:49)
[2017-02-10] MEDS: *HR* Metformin 500 MG TABLET PO SCH ×2 (08:51→17:11)
[2017-02-10] MEDS: Insulin LISPRO 300 UNITS/3 ML VIAL SQ SCH ×4 (08:51→21:48)
[2017-02-10] MEDS: Patient Taking Own Medication 1 EACH PO SCH ×2 (08:54→18:00)
[2017-02-10] MEDS: Artificial Tears SOLN 15 ML BOTTLE BOTH EYES SCH ×2 (15:34→17:13)
[2017-02-10] MEDS: Melatonin 3 MG TABLET PO PRN (21:49)
[2017-02-10] MEDS: Insulin DETEMIR 100 UNIT/ML X5UNITS SQ SCH (21:49)
[2017-02-10] MEDS: Ibuprofen 800 MG TABLET PO PRN (21:50)
[2017-02-11] MEDS: *HR* Enoxaparin 40 MG/0.4 ML SYRINGE SQ SCH (06:07)
--- NOTE | 2017-02-11 07:24 | Internal Med Progress Note ---
Date of Encounter: 02/11/17 Time of Encounter: 07:20 - Assessment and plan (1) CVA (cerebral vascular accident) Current Visit: Yes Status: Acute Assessment and plan: no new changes s table Continue present management Qualifiers: CVA mechanism: occlusion Precerebral and cerebral artery: middle cerebral artery Laterality of affected vessel: right Qualified Code(s): I63.511 - Cerebral infarction due to unspecified occlusion or stenosis of right middle cerebral artery (2) Diabetes 1.5, managed as type 2 Current Visit: Yes Status: Chronic Assessment and plan: Blood sugars slowly improving .no new changes s table Continue present management (3) Essential (primary) hypertension Current Visit: Yes Status: Chronic Assessment and plan: Stable . No dizziness On KAN stable Continue present management (4) Peripheral angiopathy Current Visit: No Status: Chronic (5) Hyperlipidemia Current Visit: Yes Status: Chronic Qualifiers: Hyperlipidemia type: mixed hyperlipidemia Qualified Code(s): E78.2 - Mixed hyperlipidemia (6) Tobacco abuse Current Visit: Yes Status: Chronic (7) Diabetic ulcer of foot associated with diabetes mellitus due to underlying condition, limited to breakdown of skin Current Visit: Yes Status: Acute Assessment and plan: Continue to improve . 2 more days for oral Antibiotics . Stable Qualifiers: Laterality: left Qualified Code(s): E08.621 - Diabetes mellitus due to underlying condition with foot ulcer; L97.521 - Non-pressure chronic ulcer of other part of left foot limited to breakdown of skin (8) Multinodular goiter (nontoxic) Current Visit: Yes Status: Acute (9) Charcot foot due to diabetes mellitus Current Visit: Yes Status: Acute (10) Neuropathy Current Visit: Yes Status: Acute Assessment and plan: No pain . no new changes stable Continue present management (11) Obstructive apnea Current Visit: Yes Status: Chronic Assessment and plan: Using CPAP for few hours a night . Mask and strapes all adjusted again . Compliance is an issue I am hoping that slwoly he will increase using his CPAP Discussed with him again .He understands (12) Conjunctivitis Current Visit: Yes Status: Acute Assessment and plan: Most likely due to scratching his eyes. No obvious truama noted , congested , no discharge watery or serous noted. Warm compressors , and symptomatic treatment . Its improving . He has a hx of Retinopathy . 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 Plan is to send him for assessment of his retinopathy again Qualifiers: Conjunctivitis type: unspecified Laterality: left Qualified Code(s): H10.9 - Unspecified conjunctivitis - Subjective Interval history: He complained irritation in his left eye which he felt that he might have scratched. He was treated symptomatically . He denies any discharge feels that his irritation has improved no pain . He felt that he slept well tonight after taking medication . He used his CPAP for few hours still takes it off and is not getting used to using it all night No other complains . No SOB , palpitation nausea vomiting or diarrhea His Blood sugars are improving - Constitutional Vitals: Temp Pulse Resp BP Pulse Ox 97.3 F L 71 16 101/67 99 02/11/17 07:03 02/11/17 07:03 02/11/17 07:03 02/11/17 07:03 02/11/17 07:03 General appearance: Present: A&O X 3, pleasant, no acute distress, answers questions appropriately. Absent: severe distress - Eye Eye exam: Present: EOMI, PERRL Additional comments: both eye some what red no discharge , No lid swelling noted on the left eye as was seen yesterday .Seems to have improved with warm compressors. - ENT ENT exam: Present: mucous membranes moist - Neck Neck exam general surgery: Present: supple. Absent: tenderness, nuchal rigidity - Respiratory Respiratory exam: Present: CTAB Additional comments: Air entry all lung [place] no crackles or wheeze - Cardiovascular Cardiovascular exam: Present: RRR. Absent: JVD Additional comments: No murmurs or gallops noted - Extremities Exam Extremities exam: Present: warm. Absent: pedal edema Additional comments: foot wounds improving infection on left foot resolved . - Neurological Exam Additional comments: left paralysis no new change doing well . Internal Medicine: Result - Labs CBC & Chem 7: 02/07/17 06:09 02/07/17 06:09 - Impressions Impressions Foot MRI 02/04/17 09:32 IMPRESSION: Shallow soft tissue ulcerations along the plantar aspect of the foot without evidence of focal abscess. Mild enhancing soft tissue edema suggesting cellulitis. No evidence of osteomyelitis. Motion artifact severely degrades exam. D/ / 02/04/2017 14:23:29 Sahil Redman MD / brian Interpreting Provider: Sahil Redman MD - VTE Deep Vein Thrombosis/Pulmonary Embolism Present on Admission: No Consult Discharge Plan - Plan Referrals: Nori Le MD [Primary Care Provider] -
[2017-02-11] MEDS: Insulin LISPRO 300 UNITS/3 ML VIAL SQ SCH ×4 (07:48→20:51)
[2017-02-11] MEDS: Lisinopril 20 MG TABLET PO SCH (08:31)
[2017-02-11] MEDS: Pregabalin 75 MG CAPSULE PO SCH ×2 (08:31→20:51)
[2017-02-11] MEDS: Aspirin 81 MG TAB.CHEW PO SCH (08:31)
[2017-02-11] MEDS: *HR* Metformin 500 MG TABLET PO SCH ×2 (08:31→17:49)
[2017-02-11] MEDS: Doxycycline 100 MG CAPSULE PO SCH ×2 (08:31→20:50)
[2017-02-11] MEDS: Patient Taking Own Medication 1 EACH PO SCH ×2 (08:32→17:50)
[2017-02-11] MEDS: Artificial Tears SOLN 15 ML BOTTLE BOTH EYES SCH ×4 (08:32→20:50)
[2017-02-11] MEDS: Insulin DETEMIR 100 UNIT/ML X5UNITS SQ SCH (20:51)
[2017-02-12] MEDS: *HR* Enoxaparin 40 MG/0.4 ML SYRINGE SQ SCH (06:30)
--- NOTE | 2017-02-12 07:53 | Internal Med Progress Note ---
Date of Encounter: 02/12/17 Time of Encounter: 07:50 - Assessment and plan (1) CVA (cerebral vascular accident) Current Visit: Yes Status: Acute Assessment and plan: no new change In rehab and slowly improving Qualifiers: CVA mechanism: occlusion Precerebral and cerebral artery: middle cerebral artery Laterality of affected vessel: right Qualified Code(s): I63.511 - Cerebral infarction due to unspecified occlusion or stenosis of right middle cerebral artery (2) Diabetes 1.5, managed as type 2 Current Visit: Yes Status: Chronic Assessment and plan: conintue present treatment Blood sugars improving slowly (3) Essential (primary) hypertension Current Visit: Yes Status: Chronic Assessment and plan: stable no new change (4) Peripheral angiopathy Current Visit: No Status: Chronic (5) Hyperlipidemia Current Visit: Yes Status: Chronic Qualifiers: Hyperlipidemia type: mixed hyperlipidemia Qualified Code(s): E78.2 - Mixed hyperlipidemia (6) Tobacco abuse Current Visit: Yes Status: Chronic (7) Diabetic ulcer of foot associated with diabetes mellitus due to underlying condition, limited to breakdown of skin Current Visit: Yes Status: Acute Assessment and plan: continue to improve No new change Qualifiers: Laterality: left Qualified Code(s): E08.621 - Diabetes mellitus due to underlying condition with foot ulcer; L97.521 - Non-pressure chronic ulcer of other part of left foot limited to breakdown of skin (8) Multinodular goiter (nontoxic) Current Visit: Yes Status: Acute (9) Charcot foot due to diabetes mellitus Current Visit: Yes Status: Acute (10) Neuropathy Current Visit: Yes Status: Acute (11) Obstructive apnea Current Visit: Yes Status: Chronic Assessment and plan: non complaince continues . Plan to do night pulse ox to assess if he drops his oxygenations and if he would qualify for home oxygen at night . Check for pulse ox when he complains of SOB including his pulse Discussed with nursing staff . Not ot use pxygen if there is no requirement . (12) Conjunctivitis Current Visit: Yes Status: Acute Qualifiers: Conjunctivitis type: unspecified Laterality: left Qualified Code(s): H10.9 - Unspecified conjunctivitis - Subjective Interval history: no new complains . he slept well . He didn't use his CPAP complains that the new mask was not hooked up to the machine,Respiratory and nursing tells me that he refuses to use it . He slept well last night . occasionally using Oxygen which he feels helps him . Occasional miss beat . No evidence that he uses oxygen at home or has been assessed for hypoxia at night. he denies any chest pain Nausea vomiting or any other complains - Constitutional Vitals: Temp Pulse Resp BP Pulse Ox 97.5 F L 62 16 133/69 95 02/11/17 20:00 02/11/17 20:00 02/11/17 20:00 02/11/17 20:00 02/11/17 20:00 General appearance: Present: A&O X 3, pleasant, no acute distress, answers questions appropriately. Absent: severe distress - Eye Eye exam: Present: EOMI, PERRL Additional comments: left eye mildly congested improved a lot with conservative treatment - Neck Neck exam general surgery: Present: supple. Absent: tenderness, nuchal rigidity - Respiratory Respiratory exam: Present: CTAB. Absent: rhonchi, stridor, wheezes, tachypnea - Cardiovascular Cardiovascular exam: Present: RRR. Absent: irregular rhythm, JVD Additional comments: occasional missed beats He has PVC - GI/Abdominal GI/Abdominal exam: Present: normal bowel sounds, soft. Absent: rigid, tenderness, no peritoneal signs - Extremities Exam Extremities exam: Absent: pedal edema - Neurological Exam Neurological exam: Present: oriented X3 Additional comments: No new change. stable Left side impacted with his CVA. Still left neglect but getting better Internal Medicine: Result - Labs CBC & Chem 7: 02/07/17 06:09 02/07/17 06:09 - VTE Deep Vein Thrombosis/Pulmonary Embolism Present on Admission: No Consult Discharge Plan - Plan Referrals: Nori Le MD [Primary Care Provider] -
[2017-02-12] MEDS: *HR* Metformin 500 MG TABLET PO SCH ×2 (08:39→17:40)
[2017-02-12] MEDS: Aspirin 81 MG TAB.CHEW PO SCH (08:40)
[2017-02-12] MEDS: Doxycycline 100 MG CAPSULE PO SCH ×2 (08:40→21:18)
[2017-02-12] MEDS: Pregabalin 75 MG CAPSULE PO SCH ×2 (08:40→21:18)
[2017-02-12] MEDS: Artificial Tears SOLN 15 ML BOTTLE BOTH EYES SCH ×4 (08:40→21:19)
[2017-02-12] MEDS: Lisinopril 20 MG TABLET PO SCH (08:40)
[2017-02-12] MEDS: Patient Taking Own Medication 1 EACH PO SCH ×2 (08:41→17:41)
[2017-02-12] MEDS: Insulin LISPRO 300 UNITS/3 ML VIAL SQ SCH ×4 (08:41→21:06)
[2017-02-12] MEDS: Insulin DETEMIR 100 UNIT/ML X5UNITS SQ SCH (21:18)
[2017-02-13] MEDS: *HR* Enoxaparin 40 MG/0.4 ML SYRINGE SQ SCH (05:52)
[2017-02-13] MEDS: Insulin LISPRO 300 UNITS/3 ML VIAL SQ SCH ×3 (07:39→18:47)
--- NOTE | 2017-02-13 07:52 | Internal Med Progress Note ---
Date of Encounter: 02/13/17 Time of Encounter: 07:50 - Assessment and plan (1) CVA (cerebral vascular accident) Current Visit: Yes Status: Acute Assessment and plan: stable Qualifiers: CVA mechanism: occlusion Precerebral and cerebral artery: middle cerebral artery Laterality of affected vessel: right Qualified Code(s): I63.511 - Cerebral infarction due to unspecified occlusion or stenosis of right middle cerebral artery (2) Diabetes 1.5, managed as type 2 Current Visit: Yes Status: Chronic Assessment and plan: stable improving slowly continue present medication (3) Essential (primary) hypertension Current Visit: Yes Status: Chronic Assessment and plan: stable (4) Peripheral angiopathy Current Visit: No Status: Chronic (5) Hyperlipidemia Current Visit: Yes Status: Chronic Qualifiers: Hyperlipidemia type: mixed hyperlipidemia Qualified Code(s): E78.2 - Mixed hyperlipidemia (6) Tobacco abuse Current Visit: Yes Status: Chronic (7) Diabetic ulcer of foot associated with diabetes mellitus due to underlying condition, limited to breakdown of skin Current Visit: Yes Status: Acute Assessment and plan: improving slowly Infection improved Stop Doxy Qualifiers: Diabetic foot ulcer location: midfoot Laterality: left Qualified Code(s) : E08.621 - Diabetes mellitus due to underlying condition with foot ulcer; L97.421 - Non-pressure chronic ulcer of left heel and midfoot limited to breakdown of skin (8) Multinodular goiter (nontoxic) Current Visit: Yes Status: Chronic Assessment and plan: stable biopsy planned in February. (9) Charcot foot due to diabetes mellitus Current Visit: No Status: Chronic Assessment and plan: stable no pain (10) Neuropathy Current Visit: Yes Status: Chronic Assessment and plan: Stable at the present time . On lyrica for pain doing fine (11) Obstructive apnea Current Visit: Yes Status: Chronic Assessment and plan: He has been evaluated for hypoxeia by continuos oxygen assessment . His pulse was around 95% all night . No evidence of drop noted. He does has hx of Sleep apenea per sleep study . He is not using CPAP as given and is having difficulty in getting used to using mask inspite of multiple attempts by the respiratory to adjust his mask . (12) Conjunctivitis Current Visit: Yes Status: Acute Assessment and plan: improved and back to his normal redness no longer having itching or irritation Qualifiers: Conjunctivitis type: unspecified Laterality: left Qualified Code(s): H10.9 - Unspecified conjunctivitis - Subjective Interval history: No new complains He had continuos Pulse ox done last night to assess his needs overall he is doing well no new complains - Constitutional Vitals: Temp Pulse Resp BP Pulse Ox 98.2 F 80 18 151/61 99 02/13/17 07:00 02/13/17 07:00 02/13/17 07:00 02/13/17 07:00 02/13/17 07:00 General appearance: Present: A&O X 3, pleasant, no acute distress, answers questions appropriately. Absent: severe distress - Eye Eye exam: Present: EOMI, PERRL - Neck Neck exam general surgery: Present: supple. Absent: tenderness, nuchal rigidity - Respiratory Respiratory exam: Present: CTAB. Absent: decreased breath sounds, respiratory distress, rhonchi, stridor, wheezes - Cardiovascular Cardiovascular exam: Present: RRR. Absent: diastolic murmur, distant heart sounds, JVD - GI/Abdominal GI/Abdominal exam: Present: normal bowel sounds, soft. Absent: distended, guarding, rigid - Neurological Exam Neurological exam: Present: alert, oriented X3 Additional comments: no new change as before Internal Medicine: Result - Labs CBC & Chem 7: 02/07/17 06:09 02/07/17 06:09 - VTE Deep Vein Thrombosis/Pulmonary Embolism Present on Admission: No Consult Discharge Plan - Plan Referrals: Nori Le MD [Primary Care Provider] -
[2017-02-13] MEDS: *HR* Metformin 500 MG TABLET PO SCH ×2 (08:56→18:56)
[2017-02-13] MEDS: Lisinopril 20 MG TABLET PO SCH (08:56)
[2017-02-13] MEDS: Doxycycline 100 MG CAPSULE PO SCH ×2 (08:57→21:20)
[2017-02-13] MEDS: Aspirin 81 MG TAB.CHEW PO SCH (08:57)
[2017-02-13] MEDS: Pregabalin 75 MG CAPSULE PO SCH ×2 (08:57→21:20)
[2017-02-13] MEDS: Patient Taking Own Medication 1 EACH PO SCH ×2 (08:58→19:00)
[2017-02-13] MEDS: Artificial Tears SOLN 15 ML BOTTLE BOTH EYES SCH ×4 (08:59→21:21)
[2017-02-13] MEDS: Ibuprofen 800 MG TABLET PO PRN (21:20)
[2017-02-13] MEDS: Insulin DETEMIR 100 UNIT/ML X5UNITS SQ SCH (21:24)
[2017-02-14] MEDS: *HR* Enoxaparin 40 MG/0.4 ML SYRINGE SQ SCH (06:17)
[2017-02-14] MEDS: Insulin LISPRO 300 UNITS/3 ML VIAL SQ SCH ×3 (07:49→22:18)
[2017-02-14] MEDS: Lisinopril 20 MG TABLET PO SCH (08:02)
[2017-02-14] MEDS: *HR* Metformin 500 MG TABLET PO SCH ×2 (08:02→18:29)
[2017-02-14] MEDS: Artificial Tears SOLN 15 ML BOTTLE BOTH EYES SCH ×4 (08:02→21:58)
[2017-02-14] MEDS: Aspirin 81 MG TAB.CHEW PO SCH (08:02)
[2017-02-14] MEDS: Doxycycline 100 MG CAPSULE PO SCH (08:02)
[2017-02-14] MEDS: Patient Taking Own Medication 1 EACH PO SCH ×2 (08:03→18:31)
--- NOTE | 2017-02-14 08:48 | Internal Med Progress Note ---
Date of Encounter: 02/14/17 Time of Encounter: 08:46 - Assessment and plan (1) CVA (cerebral vascular accident) Current Visit: Yes Status: Acute Assessment and plan: stable no new change Qualifiers: CVA mechanism: occlusion Precerebral and cerebral artery: middle cerebral artery Laterality of affected vessel: right Qualified Code(s): I63.511 - Cerebral infarction due to unspecified occlusion or stenosis of right middle cerebral artery (2) Diabetes 1.5, managed as type 2 Current Visit: Yes Status: Chronic Assessment and plan: improved and stable on present dose of meds conitnue present management (3) Essential (primary) hypertension Current Visit: Yes Status: Chronic Assessment and plan: no new change stable (4) Peripheral angiopathy Current Visit: No Status: Chronic (5) Hyperlipidemia Current Visit: Yes Status: Chronic Qualifiers: Hyperlipidemia type: mixed hyperlipidemia Qualified Code(s): E78.2 - Mixed hyperlipidemia (6) Tobacco abuse Current Visit: Yes Status: Chronic (7) Diabetic ulcer of foot associated with diabetes mellitus due to underlying condition, limited to breakdown of skin Current Visit: Yes Status: Acute Assessment and plan: stable and improving Qualifiers: Diabetic foot ulcer location: midfoot Laterality: left Qualified Code(s) : E08.621 - Diabetes mellitus due to underlying condition with foot ulcer; L97.421 - Non-pressure chronic ulcer of left heel and midfoot limited to breakdown of skin (8) Multinodular goiter (nontoxic) Current Visit: Yes Status: Chronic (9) Charcot foot due to diabetes mellitus Current Visit: No Status: Chronic (10) Neuropathy Current Visit: Yes Status: Chronic (11) Obstructive apnea Current Visit: Yes Status: Chronic Assessment and plan: not using CPAP non compliance (12) Conjunctivitis Current Visit: Yes Status: Resolved Assessment and plan: improved and resolved Qualifiers: Conjunctivitis type: unspecified Laterality: left Qualified Code(s): H10.9 - Unspecified conjunctivitis - Subjective Interval history: complains of being SOB at night however didnt call anyone . he feels that he is SOB even now however dosent look SOB at all no chest pain nasuea slept well He states that SOB got better hen he went to sleep . He is not using CPAP - Constitutional Vitals: Temp Pulse Resp BP Pulse Ox 97.7 F 50 16 137/59 93 02/14/17 07:17 02/14/17 07:17 02/14/17 07:17 02/14/17 07:17 02/14/17 07:17 General appearance: Present: A&O X 3, pleasant, no acute distress, answers questions appropriately. Absent: severe distress Exam: no obviously SOB feels fine but complains that he is SOB - Head Head exam: Present: normal inspection - Eye Eye exam: Present: EOMI, PERRL. Absent: conjunctival injection, sclera anicteric - Neck Neck exam general surgery: Present: supple. Absent: tenderness, nuchal rigidity - Respiratory Respiratory exam: Present: CTAB. Absent: respiratory distress, rhonchi, stridor , wheezes, tachypnea Additional comments: Air entry all lung [place] I could hear any wheeze or ronchi - Cardiovascular Cardiovascular exam: Present: RRR. Absent: clicks, gallop, JVD - GI/Abdominal GI/Abdominal exam: Present: normal bowel sounds, soft. Absent: distended, firm , guarding, rebound, rigid - Neurological Exam Neurological exam: Present: alert, oriented X3. Absent: no focal deficits Additional comments: weakness on his left side with some neglect which is getting better , no new change Internal Medicine: Result - Labs CBC & Chem 7: 02/07/17 06:09 02/07/17 06:09 - VTE Deep Vein Thrombosis/Pulmonary Embolism Present on Admission: No Consult Discharge Plan - Plan Referrals: Nori Le MD [Primary Care Provider] -
[2017-02-14] MEDS: Pregabalin 75 MG CAPSULE PO SCH ×2 (09:58→21:58)
[2017-02-14] MEDS: Insulin DETEMIR 100 UNIT/ML X5UNITS SQ SCH (21:58)
[2017-02-14] MEDS: Ibuprofen 800 MG TABLET PO PRN (22:52)
[2017-02-14] MEDS: Melatonin 3 MG TABLET PO PRN (22:53)
[2017-02-15] MEDS: *HR* Enoxaparin 40 MG/0.4 ML SYRINGE SQ SCH (05:54)
[2017-02-15] MEDS: Pregabalin 75 MG CAPSULE PO SCH ×2 (08:38→22:30)
[2017-02-15] MEDS: Lisinopril 20 MG TABLET PO SCH (08:39)
[2017-02-15] MEDS: Aspirin 81 MG TAB.CHEW PO SCH (08:39)
[2017-02-15] MEDS: *HR* Metformin 500 MG TABLET PO SCH ×2 (08:39→17:39)
[2017-02-15] MEDS: Patient Taking Own Medication 1 EACH PO SCH ×2 (08:40→17:40)
[2017-02-15] MEDS: Artificial Tears SOLN 15 ML BOTTLE BOTH EYES SCH ×4 (08:40→22:30)
[2017-02-15] MEDS: Insulin LISPRO 300 UNITS/3 ML VIAL SQ SCH ×5 (08:41→21:04)
[2017-02-15] MEDS: Insulin DETEMIR 100 UNIT/ML X5UNITS SQ SCH (22:30)
[2017-02-16] MEDS: *HR* Enoxaparin 40 MG/0.4 ML SYRINGE SQ SCH (06:08)
--- NOTE | 2017-02-16 09:33 | Internal Med Progress Note ---
Date of Encounter: 02/16/17 Time of Encounter: 09:31 - Assessment and plan (1) CVA (cerebral vascular accident) Current Visit: Yes Status: Acute Assessment and plan: stable and improving Qualifiers: CVA mechanism: occlusion Precerebral and cerebral artery: middle cerebral artery Laterality of affected vessel: right Qualified Code(s): I63.511 - Cerebral infarction due to unspecified occlusion or stenosis of right middle cerebral artery (2) Diabetes 1.5, managed as type 2 Current Visit: Yes Status: Chronic Assessment and plan: improving continue present dose (3) Essential (primary) hypertension Current Visit: Yes Status: Chronic Assessment and plan: stable (4) Peripheral angiopathy Current Visit: No Status: Chronic (5) Hyperlipidemia Current Visit: Yes Status: Chronic Qualifiers: Hyperlipidemia type: mixed hyperlipidemia Qualified Code(s): E78.2 - Mixed hyperlipidemia (6) Tobacco abuse Current Visit: Yes Status: Chronic (7) Diabetic ulcer of foot associated with diabetes mellitus due to underlying condition, limited to breakdown of skin Current Visit: Yes Status: Acute Assessment and plan: improving slowly infection controlled and healing is taking place no new change continue present management Qualifiers: Diabetic foot ulcer location: midfoot Laterality: left Qualified Code(s) : E08.621 - Diabetes mellitus due to underlying condition with foot ulcer; L97.421 - Non-pressure chronic ulcer of left heel and midfoot limited to breakdown of skin (8) Multinodular goiter (nontoxic) Current Visit: Yes Status: Chronic Assessment and plan: stable plan for ENT assessment for FNA in feb (9) Charcot foot due to diabetes mellitus Current Visit: No Status: Chronic (10) Neuropathy Current Visit: Yes Status: Chronic (11) Obstructive apnea Current Visit: Yes Status: Chronic Assessment and plan: non compliance with using CPAP . continue to encourage its use . No hypoxia at night during sleep since his Pulse was 95% when assessed. (12) Conjunctivitis Current Visit: Yes Status: Resolved Qualifiers: Conjunctivitis type: unspecified Laterality: left Qualified Code(s): H10.9 - Unspecified conjunctivitis - Subjective Interval history: no new complaisn today he slept well in good mood . no chest pain Nausea vomiting or diarrhea eating well his wound is healing well - Constitutional Vitals: Temp Pulse Resp BP Pulse Ox 97.6 F 54 16 149/69 92 02/16/17 07:00 08/30/17 07:00 02/16/17 07:00 02/16/17 07:00 02/16/17 07:00 General appearance: Present: A&O X 3, pleasant, no acute distress, answers questions appropriately. Absent: severe distress - Head Head exam: Present: normal inspection - Eye Eye exam: Present: EOMI, PERRL. Absent: periorbital swelling, conjuntiva pink, sclera anicteric Additional comments: improved and back to base line - Neck Neck exam general surgery: Present: full ROM, supple. Absent: tenderness, nuchal rigidity - Respiratory Respiratory exam: Present: CTAB. Absent: chest wall tenderness, rhonchi, stridor, wheezes, tachypnea - Cardiovascular Cardiovascular exam: Present: RRR. Absent: irregular rhythm, JVD - GI/Abdominal GI/Abdominal exam: Present: normal bowel sounds, soft. Absent: mass, pulsatile mass, rigid Internal Medicine: Result - Labs CBC & Chem 7: 02/07/17 06:09 02/07/17 06:09 - VTE Deep Vein Thrombosis/Pulmonary Embolism Present on Admission: No Consult Discharge Plan - Plan Referrals: Nori Le MD [Primary Care Provider] -
[2017-02-16] MEDS: *HR* Metformin 500 MG TABLET PO SCH ×2 (09:47→17:52)
[2017-02-16] MEDS: Lisinopril 20 MG TABLET PO SCH (09:47)
[2017-02-16] MEDS: Pregabalin 75 MG CAPSULE PO SCH ×2 (09:47→21:57)
[2017-02-16] MEDS: Aspirin 81 MG TAB.CHEW PO SCH (09:48)
[2017-02-16] MEDS: Artificial Tears SOLN 15 ML BOTTLE BOTH EYES SCH ×4 (09:54→22:01)
[2017-02-16] MEDS: Patient Taking Own Medication 1 EACH PO SCH ×2 (09:55→17:53)
[2017-02-16] MEDS: Insulin LISPRO 300 UNITS/3 ML VIAL SQ SCH ×4 (09:55→21:33)
--- NOTE | 2017-02-16 15:46 | Physcial Medicine-Consult Note ---
Date of Encounter: 02/16/17 Time of Encounter: 15:39 Physical Medicine - AP (1) CVA (cerebral vascular accident) Status: Acute Assessment and plan: 1. Patient will continue with intensive PT/OT/ST/TR to address transfers, ADLS , endurance and safety. 2. Continue with plavix. 3. DVT prophylaxis: continue lovenox. Code(s): I63.9 - Cerebral infarction, unspecified SNOMED Code(s): 541109432 Physical Medicine - [facility] - Data of Consult Consult date: 02/16/17 Requesting Physician: Nori Le MD Primary Care Provider: Nori Le MD - Consult Narrative Reason for consult: CVA History of present illness: Mr. Nino is a 56 year old male who presented to [facility] with acute onset of left hemiplegia. Initial head CT revealed a remote right parietal lobe infarct. Patient did not receive tPA. CTA revealed several areas of mild- moderate narrowing in several vessels, no large vessel occlusions. He was not a candidate for neurosurgical intervention. He was started on aspirin, stabilized and transferred for inpatient rehabilitation. He continus to suffer from left hemiplegia. He complains of left hip and shoulder pain. CC: Nori Le MD Past Med Surg Social Fam HX - Past Medical History Medical history: diabetes, hyperlipidemia, hypertension - Past Surgical History Surgical History: no surgical history, LE vascular intervention (has PVD follows with vascular surgon Left leg angiogram done but no intervention) - Social History Smoking Status: Current every day smoker (2 packs/day) Alcohol use: none Drug use: none Medications and Allergies Atorvastatin [Lipitor] 80 mg PO HS 01/29/17 [History] Clopidogrel [Plavix] 75 mg PO DAILY 01/29/17 [History] Icosapent Ethyl [Vascepa] 1 gm PO BID 01/29/17 [History] Insulin Glargine,Hum.rec.anlog [Lantus Solostar] 40 unit SQ HS 01/29/17 [History ] Lisinopril [Zestril] 20 mg PO DAILY 01/29/17 [History] Pregabalin [Lyrica] 300 mg PO BID 01/29/17 [History] metFORMIN [Glucophage] 1,000 mg PO BIDWM 01/29/17 [History] 3 Allergy/AdvReac Type Severity Reaction Status Date / Time No Known Allergies Allergy Verified 01/26/17 10:17 - Constitutional Constitutional: Absent: anorexia, chills - Cardiovascular Cardiovascular: Absent: chest pain, dyspnea - Respiratory Respiratory: Absent: dyspnea - Gastrointestinal Gastrointestinal: Absent: abdominal pain, loose stools - Neurological Neurological: Present: focal weakness - Psychiatric Psychiatric: Present: depression Physical Medicine - Exam - Constitutional Vitals: Temp Pulse Resp BP Pulse Ox 97.6 F 54 16 149/69 92 02/16/17 07:00 02/16/17 07:00 02/16/17 07:00 02/16/17 07:00 02/16/17 07:00 General appearance: no acute distress - Respiratory Respiratory exam: Present: CTAB - Cardiovascular Cardiovascular exam: Present: RRR - GI/Abdominal GI/Abdominal exam: Present: soft. Absent: tenderness - Extremities Exam Extremities exam: Absent: calf tenderness, tenderness Additional comments: Motor strength is 5/5 in the right upper and lower limb. Left upper limb and left lower limb motor strength is 0/5. - Psychiatric Psychiatric exam: Present: depressed Physical Medicine - Results - Labs CBC & Chem 7: 02/07/17 06:09 02/07/17 06:09 - Impressions ITS Impressions Chest CT 01/30/17 15:11 IMPRESSION: 1. No active cardiopulmonary disease 2. Pulmonary emphysema 3. Calcific Coronary atherosclerosis 4. Left thyroid nodule. Consider thyroid ultrasound for further evaluation D/ / Garry Ball MD / Garry Ball MD Interpreting Provider: Garry Ball MD Thyroid Ultrasound 02/01/17 09:30 IMPRESSION: 1. Dominant 2.9 cm heterogeneous, hypoechoic nodule in the left thyroid lobe with mild internal vascularity. This nodule is amenable to ultrasound-guided FNA. D/ / 02/01/2017 11:03:32 Alena Sky MD / cheo Interpreting Provider: Alena Sky MD Foot X-Ray 02/02/17 11:44 IMPRESSION: No acute osseous abnormality of the right foot. No plain film evidence of osteomyelitis. D/ / Mario Medina MD / Mario Medina MD Interpreting Provider: Mario Medina MD Foot MRI 02/04/17 09:32 IMPRESSION: 1. No evidence for osteomyelitis. 2. Likely ulceration along the plantar and lateral aspect of the midfoot with no underlying organized fluid collection identified. 3. Mild focal nonspecific enhancement of the subcutaneous tissues at the plantar foot adjacent to the 1st metatarsal head with no organized fluid collection identified at this site. 4. Tenosynovitis involving the proximal flexor hallucis longus tendon sheath. 5. Nonspecific subcutaneous edema of the dorsal soft tissues without corresponding enhancement. D/ / Gurdeep Moreno MD / Gurdeep Moreno MD Interpreting Provider: Gurdeep Moreno MD Foot MRI 02/04/17 09:32 IMPRESSION: Shallow soft tissue ulcerations along the plantar aspect of the foot without evidence of focal abscess. Mild enhancing soft tissue edema suggesting cellulitis. No evidence of osteomyelitis. Motion artifact severely degrades exam. D/ / 02/04/2017 14:23:29 Sahil Redman MD / brian Interpreting Provider: Sahil Redman MD Consult Discharge Plan - Plan Referrals: Nori Le MD [Primary Care Provider] -
[2017-02-16] MEDS: Insulin DETEMIR 100 UNIT/ML X5UNITS SQ SCH (22:00)
[2017-02-17] MEDS: Insulin LISPRO 300 UNITS/3 ML VIAL SQ SCH ×4 (08:17→21:18)
[2017-02-17] MEDS: Lisinopril 20 MG TABLET PO SCH (08:18)
[2017-02-17] MEDS: Aspirin 81 MG TAB.CHEW PO SCH (08:18)
[2017-02-17] MEDS: *HR* Metformin 500 MG TABLET PO SCH ×2 (08:18→17:30)
[2017-02-17] MEDS: Pregabalin 75 MG CAPSULE PO SCH ×2 (08:18→21:18)
[2017-02-17] MEDS: Artificial Tears SOLN 15 ML BOTTLE BOTH EYES SCH ×4 (08:21→21:17)
[2017-02-17] MEDS: Patient Taking Own Medication 1 EACH PO SCH ×2 (08:22→17:32)
--- NOTE | 2017-02-17 08:38 | Internal Med Progress Note ---
Date of Encounter: 02/17/17 Time of Encounter: 08:36 - Assessment and plan (1) CVA (cerebral vascular accident) Current Visit: Yes Status: Acute Assessment and plan: stable no new complains continue present treatment Getting rehab He is scheduled for cardiac catherization as out patient in [facility] in February Qualifiers: CVA mechanism: occlusion Precerebral and cerebral artery: middle cerebral artery Laterality of affected vessel: right Qualified Code(s): I63.511 - Cerebral infarction due to unspecified occlusion or stenosis of right middle cerebral artery (2) Diabetes 1.5, managed as type 2 Current Visit: Yes Status: Chronic Assessment and plan: improving slowly and is better controlled (3) Essential (primary) hypertension Current Visit: Yes Status: Chronic Assessment and plan: mildly high today but had been stable no new change (4) Peripheral angiopathy Current Visit: No Status: Chronic Assessment and plan: no new change (5) Hyperlipidemia Current Visit: Yes Status: Chronic Qualifiers: Hyperlipidemia type: mixed hyperlipidemia Qualified Code(s): E78.2 - Mixed hyperlipidemia (6) Tobacco abuse Current Visit: Yes Status: Chronic (7) Diabetic ulcer of foot associated with diabetes mellitus due to underlying condition, limited to breakdown of skin Current Visit: Yes Status: Acute Assessment and plan: improving continue present management Qualifiers: Diabetic foot ulcer location: midfoot Laterality: left Qualified Code(s) : E08.621 - Diabetes mellitus due to underlying condition with foot ulcer; L97.421 - Non-pressure chronic ulcer of left heel and midfoot limited to breakdown of skin (8) Multinodular goiter (nontoxic) Current Visit: Yes Status: Chronic (9) Charcot foot due to diabetes mellitus Current Visit: No Status: Chronic Assessment and plan: stable no new change (10) Neuropathy Current Visit: Yes Status: Chronic (11) Obstructive apnea Current Visit: Yes Status: Chronic Assessment and plan: non complaint with CPAP (12) Conjunctivitis Current Visit: Yes Status: Resolved Qualifiers: Conjunctivitis type: unspecified Laterality: left Qualified Code(s): H10.9 - Unspecified conjunctivitis - Subjective Interval history: Doing fine , no new change , slept well didnt use CPAP again - Constitutional Vitals: Temp Pulse Resp BP Pulse Ox 97.7 F 58 14 156/60 93 02/17/17 06:00 02/17/17 06:00 02/17/17 06:00 02/17/17 06:00 02/17/17 06:00 General appearance: Present: A&O X 3, pleasant, no acute distress, answers questions appropriately. Absent: severe distress - Eye Eye exam: Present: EOMI, PERRL, sclera anicteric. Absent: conjunctival injection, scleral icterus, conjuntiva pink - Neck Neck exam general surgery: Present: supple. Absent: tenderness, nuchal rigidity - Respiratory Respiratory exam: Present: CTAB. Absent: chest wall tenderness, respiratory distress, rhonchi, wheezes - Cardiovascular Cardiovascular exam: Present: RRR. Absent: irregular rhythm, JVD - GI/Abdominal GI/Abdominal exam: Present: normal bowel sounds, soft. Absent: mass, rebound, rigid - Neurological Exam Neurological exam: Present: altered, oriented X3 Additional comments: no new changes neurological deficit as before Internal Medicine: Result - Labs CBC & Chem 7: 02/07/17 06:09 02/07/17 06:09 - VTE Deep Vein Thrombosis/Pulmonary Embolism Present on Admission: No Consult Discharge Plan - Plan Referrals: Nori Le MD [Primary Care Provider] -
[2017-02-17] MEDS: Insulin DETEMIR 100 UNIT/ML X5UNITS SQ SCH (21:18)
[2017-02-17] MEDS: Melatonin 3 MG TABLET PO PRN (21:19)
[2017-02-17] MEDS: Ibuprofen 800 MG TABLET PO PRN (21:20)
[2017-02-18] MEDS: Lisinopril 20 MG TABLET PO SCH (09:18)
[2017-02-18] MEDS: *HR* Metformin 500 MG TABLET PO SCH ×2 (09:18→17:50)
[2017-02-18] MEDS: Pregabalin 75 MG CAPSULE PO SCH ×2 (09:18→21:32)
[2017-02-18] MEDS: Ibuprofen 800 MG TABLET PO PRN (09:18)
[2017-02-18] MEDS: Aspirin 81 MG TAB.CHEW PO SCH (09:18)
[2017-02-18] MEDS: Artificial Tears SOLN 15 ML BOTTLE BOTH EYES SCH ×4 (09:19→21:32)
[2017-02-18] MEDS: Patient Taking Own Medication 1 EACH PO SCH ×2 (09:20→17:50)
[2017-02-18] MEDS: Insulin LISPRO 300 UNITS/3 ML VIAL SQ SCH ×4 (09:20→21:27)
[2017-02-18] MEDS: Melatonin 3 MG TABLET PO PRN (21:32)
[2017-02-18] MEDS: Insulin DETEMIR 100 UNIT/ML X5UNITS SQ SCH (21:32)
[2017-02-19] MEDS: *HR* Metformin 500 MG TABLET PO SCH ×2 (09:48→18:30)
[2017-02-19] MEDS: Pregabalin 75 MG CAPSULE PO SCH ×2 (09:48→22:11)
[2017-02-19] MEDS: Aspirin 81 MG TAB.CHEW PO SCH (09:49)
[2017-02-19] MEDS: Lisinopril 20 MG TABLET PO SCH ×2 (09:49→11:04)
[2017-02-19] MEDS: Patient Taking Own Medication 1 EACH PO SCH ×2 (09:50→18:31)
[2017-02-19] MEDS: Artificial Tears SOLN 15 ML BOTTLE BOTH EYES SCH ×4 (09:52→22:12)
[2017-02-19] MEDS: Insulin LISPRO 300 UNITS/3 ML VIAL SQ SCH ×4 (09:52→22:02)
[2017-02-19] MEDS: Insulin DETEMIR 100 UNIT/ML X5UNITS SQ SCH (22:12)
[2017-02-20] MEDS: Insulin LISPRO 300 UNITS/3 ML VIAL SQ SCH ×4 (08:06→20:23)
[2017-02-20] MEDS: Lisinopril 20 MG TABLET PO SCH (08:18)
[2017-02-20] MEDS: Pregabalin 75 MG CAPSULE PO SCH ×2 (08:18→19:31)
[2017-02-20] MEDS: Aspirin 81 MG TAB.CHEW PO SCH (08:18)
[2017-02-20] MEDS: *HR* Metformin 500 MG TABLET PO SCH ×2 (08:18→17:38)
[2017-02-20] MEDS: Artificial Tears SOLN 15 ML BOTTLE BOTH EYES SCH ×4 (08:19→20:23)
[2017-02-20] MEDS: Patient Taking Own Medication 1 EACH PO SCH ×2 (08:19→17:39)
[2017-02-20] MEDS: Insulin DETEMIR 100 UNIT/ML X5UNITS SQ SCH (20:22)
--- NOTE | 2017-02-21 08:40 | Internal Med Progress Note ---
Date of Encounter: 02/21/17 Time of Encounter: 08:38 - Assessment and plan (1) CVA (cerebral vascular accident) Current Visit: Yes Status: Acute Assessment and plan: stable getting rehab and is doing fine continue present management Qualifiers: CVA mechanism: occlusion Precerebral and cerebral artery: middle cerebral artery Laterality of affected vessel: right Qualified Code(s): I63.511 - Cerebral infarction due to unspecified occlusion or stenosis of right middle cerebral artery (2) Diabetes 1.5, managed as type 2 Current Visit: Yes Status: Chronic Assessment and plan: improved and doing well on present management .continue to monitor (3) Essential (primary) hypertension Current Visit: Yes Status: Chronic Assessment and plan: stable n meds (4) Peripheral angiopathy Current Visit: No Status: Chronic Assessment and plan: PVD doing well and stable (5) Hyperlipidemia Current Visit: Yes Status: Chronic Assessment and plan: stable continue present medication tolerating meds well Qualifiers: Hyperlipidemia type: mixed hyperlipidemia Qualified Code(s): E78.2 - Mixed hyperlipidemia (6) Tobacco abuse Current Visit: Yes Status: Chronic (7) Diabetic ulcer of foot associated with diabetes mellitus due to underlying condition, limited to breakdown of skin Current Visit: Yes Status: Acute Assessment and plan: foot ulcer improved lot and continues to improve No evidence of infection any more Qualifiers: Diabetic foot ulcer location: midfoot Laterality: left Qualified Code(s) : E08.621 - Diabetes mellitus due to underlying condition with foot ulcer; L97.421 - Non-pressure chronic ulcer of left heel and midfoot limited to breakdown of skin (8) Multinodular goiter (nontoxic) Current Visit: Yes Status: Chronic Assessment and plan: plans for FNA (9) Charcot foot due to diabetes mellitus Current Visit: No Status: Chronic Assessment and plan: stable pain stable (10) Neuropathy Current Visit: Yes Status: Chronic (11) Obstructive apnea Current Visit: Yes Status: Chronic Assessment and plan: stable not using CPAP pt non complaint (12) Conjunctivitis Current Visit: Yes Status: Resolved Qualifiers: Conjunctivitis type: unspecified Laterality: left Qualified Code(s): H10.9 - Unspecified conjunctivitis - Subjective Interval history: No new change doing well Blood sugars stable fluctuate . No chest pain nausea vomiting pr any other complains He has stopped using CPAP - Constitutional Vitals: Temp Pulse Resp BP Pulse Ox 97.6 F 46 16 121/58 94 02/21/17 07:29 02/21/17 07:29 02/21/17 07:29 02/21/17 07:29 02/21/17 07:29 General appearance: Present: A&O X 3, pleasant, no acute distress, answers questions appropriately. Absent: severe distress - Head Head exam: Present: atraumatic - Eye Eye exam: Present: EOMI, PERRL, conjuntiva pink. Absent: periorbital tenderness , scleral icterus - Neck Neck exam general surgery: Present: supple. Absent: tenderness, nuchal rigidity - Respiratory Respiratory exam: Present: CTAB. Absent: rales, respiratory distress, rhonchi, stridor, wheezes, tachypnea - Cardiovascular Cardiovascular exam: Present: RRR, +S1, +S2. Absent: irregular rhythm, JVD - GI/Abdominal GI/Abdominal exam: Present: normal bowel sounds, soft. Absent: guarding, hepatomegaly, rebound, rigid, splenomegaly, tenderness - Extremities Exam Extremities exam: Absent: mottling, pedal edema, tenderness - Neurological Exam Neurological exam: Present: alert, CN II-XII intact, oriented X3. Absent: no focal deficits, facial droop, speech deficit Additional comments: neuro examination as before no new change Internal Medicine: Result - Labs CBC & Chem 7: 02/07/17 06:09 02/07/17 06:09 - VTE Deep Vein Thrombosis/Pulmonary Embolism Present on Admission: No Consult Discharge Plan - Plan Referrals: Nori Le MD [Primary Care Provider] -
[2017-02-21] MEDS: Insulin LISPRO 300 UNITS/3 ML VIAL SQ SCH ×4 (08:54→22:56)
[2017-02-21] MEDS: Pregabalin 75 MG CAPSULE PO SCH ×2 (09:53→22:57)
[2017-02-21] MEDS: Lisinopril 20 MG TABLET PO SCH (09:54)
[2017-02-21] MEDS: *HR* Metformin 500 MG TABLET PO SCH ×2 (09:54→17:42)
[2017-02-21] MEDS: Aspirin 81 MG TAB.CHEW PO SCH (09:54)
[2017-02-21] MEDS: Patient Taking Own Medication 1 EACH PO SCH ×2 (09:55→17:43)
[2017-02-21] MEDS: Artificial Tears SOLN 15 ML BOTTLE BOTH EYES SCH ×4 (10:03→22:59)
[2017-02-21] MEDS: Insulin DETEMIR 100 UNIT/ML X5UNITS SQ SCH (22:59)
[2017-02-22] MEDS: Insulin LISPRO 300 UNITS/3 ML VIAL SQ SCH ×4 (08:01→22:16)
[2017-02-22] MEDS: Artificial Tears SOLN 15 ML BOTTLE BOTH EYES SCH ×3 (08:35→22:15)
[2017-02-22] MEDS: Patient Taking Own Medication 1 EACH PO SCH ×2 (08:35→17:48)
[2017-02-22] MEDS: *HR* Metformin 500 MG TABLET PO SCH ×2 (08:36→17:48)
[2017-02-22] MEDS: Aspirin 81 MG TAB.CHEW PO SCH (08:36)
[2017-02-22] MEDS: Lisinopril 20 MG TABLET PO SCH (08:36)
[2017-02-22] MEDS: Pregabalin 75 MG CAPSULE PO SCH ×2 (08:36→22:15)
--- NOTE | 2017-02-22 13:57 | Internal Med Progress Note ---
Date of Encounter: 02/22/17 Time of Encounter: 14:00 - Assessment and plan (1) CVA (cerebral vascular accident) Current Visit: Yes Status: Acute Assessment and plan: CVA and working with all of the modalities of therapy Qualifiers: CVA mechanism: occlusion Precerebral and cerebral artery: middle cerebral artery Laterality of affected vessel: right Qualified Code(s): I63.511 - Cerebral infarction due to unspecified occlusion or stenosis of right middle cerebral artery - Subjective Interval history: He working with the therapist and seems to be doing very well - Constitutional Vitals: Temp Pulse Resp BP Pulse Ox 98.3 F 96 18 154/73 97 02/22/17 08:01 02/22/17 08:01 02/22/17 08:01 02/22/17 08:01 02/22/17 08:01 General appearance: Present: A&O X 3, pleasant, no acute distress, answers questions appropriately. Absent: severe distress - Head Head exam: Present: atraumatic, normal inspection, normocephalic - Neck Neck exam general surgery: Present: supple, trachea midline. Absent: lymphadenopathy - Respiratory Respiratory exam: Present: CTAB. Absent: accessory muscle use, rales, rhonchi, wheezes - Cardiovascular Cardiovascular exam: Present: RRR, +S1, +S2. Absent: diastolic murmur, gallop, rubs, systolic murmur Internal Medicine: Result - Labs CBC & Chem 7: 02/07/17 06:09 02/07/17 06:09 Labs: Lab is normal - VTE Deep Vein Thrombosis/Pulmonary Embolism Present on Admission: No Consult Discharge Plan - Plan Referrals: Nori Le MD [Primary Care Provider] -
[2017-02-22] MEDS: Insulin DETEMIR 100 UNIT/ML X5UNITS SQ SCH (22:16)
[2017-02-23] MEDS: Patient Taking Own Medication 1 EACH PO SCH ×2 (08:21→17:12)
[2017-02-23] MEDS: Artificial Tears SOLN 15 ML BOTTLE BOTH EYES SCH ×4 (08:21→20:55)
[2017-02-23] MEDS: Pregabalin 75 MG CAPSULE PO SCH ×2 (08:21→20:51)
[2017-02-23] MEDS: *HR* Metformin 500 MG TABLET PO SCH ×2 (08:21→17:11)
[2017-02-23] MEDS: Lisinopril 20 MG TABLET PO SCH (08:21)
[2017-02-23] MEDS: Aspirin 81 MG TAB.CHEW PO SCH (08:21)
[2017-02-23] MEDS: Insulin LISPRO 300 UNITS/3 ML VIAL SQ SCH ×4 (08:22→21:04)
--- NOTE | 2017-02-23 12:50 | Physical Med Progress Note ---
Date of Encounter: 02/23/17 Time of Encounter: 12:38 Assessment and Plan (1) CVA (cerebral vascular accident) Current Visit: Yes Status: Acute Qualifiers: CVA mechanism: occlusion Precerebral and cerebral artery: middle cerebral artery Laterality of affected vessel: right Qualified Code(s): I63.511 - Cerebral infarction due to unspecified occlusion or stenosis of right middle cerebral artery Physical Medicine-PN: Subj Interval history: PMR PCC Note Mr. Nino has had some return of function in the left arm. He has some return of biceps and triceps movement. Improved left hamstring strength. His transfers have improved-he is currently CGA for transfers. Patient has been ambulating 20-30 feet with blocking of the left knee and hip assist. Patient stood for 20 minutes with cues to weight shift and maintain hip position. Sitting balance has improved. Left neglect improving. - Constitutional Vitals: Vital Signs Temp Pulse Resp BP Pulse Ox 02/23/17 07:00 97.5 F L 56 14 169/72 95 02/22/17 19:29 98.0 F 60 18 115/62 95 Intake and Output 02/22/17 02/23/17 02/23/17 23:59 07:59 15:59 Intake Total 1020 / 1020 600 / 600 Output Total 450 / 450 800 / 800 Balance 570 / 570 -800 / -800 600 / 600 Intake: Oral 1020 / 1020 600 / 600 Output: Urine 450 / 450 800 / 800 Other: Meal Dinner Lunch Percent of Meal Consumed 100% 100% Blood Glucose* 146 149 Physical Medicine-PN: Obj Data - Labs CBC & Chem 7: 02/07/17 06:09 02/07/17 06:09 Labs: Laboratory Results - last 24 hr 02/22/17 02/23/17 20:29 07:35 POC Glucose 146 H 138 H - VTE Deep Vein Thrombosis/Pulmonary Embolism Present on Admission: No Consult Discharge Plan - Plan Referrals: Nori Le MD [Primary Care Provider] -
--- NOTE | 2017-02-23 14:46 | Rehab Psychology Progress Note ---
Date of Encounter: 02/23/17 Time of Encounter: 11:00 Subjective - Patient Report Patient Report: Clark stated that he "won't give up" and is trying to accept and adjust to how slow stroke recovery can be. Objective - Comments Functional Status Comments: Mr. Nino was friendly and displayed good humor as he shared the challenges he is facing post-CVA. He presented as talkative and open. Mood was somber but he presented as optimistic about his recovery and noted several areas of improvement. Session focused on identifying his strengths in coping and managing his expectations regarding his recovery. He identified two major barriers to his being able to return home: using the urinal and using the steep ramp in front of his house. Assessment and Plan - Diagnosis (1) Cognitive deficit due to recent cerebral infarction (2) Adjustment disorder with depressed mood - Treatment Plan Treatment Plan Recommendations: Continue Current Plan/Goals (Provide individual supportive counseling and recommended that he attend the [facility] Stroke Support Group post-discharge.) Procedures - Intervention Interventions: Supportive Counseling - Modality Modality: Psychotherapy 30 minutes - Participants Therapy Participant: Patient - Session Time Session Start Time: 11:00 Session Stop Time: :30
[2017-02-23] MEDS: Insulin DETEMIR 100 UNIT/ML X5UNITS SQ SCH (20:53)
[2017-02-24] MEDS: Insulin LISPRO 300 UNITS/3 ML VIAL SQ SCH ×3 (08:06→17:00)
[2017-02-24] MEDS: Pregabalin 75 MG CAPSULE PO SCH ×2 (08:12→22:09)
[2017-02-24] MEDS: Artificial Tears SOLN 15 ML BOTTLE BOTH EYES SCH ×4 (08:13→22:09)
[2017-02-24] MEDS: Lisinopril 20 MG TABLET PO SCH (08:13)
[2017-02-24] MEDS: Patient Taking Own Medication 1 EACH PO SCH ×2 (08:13→17:15)
[2017-02-24] MEDS: *HR* Metformin 500 MG TABLET PO SCH ×2 (08:13→17:15)
[2017-02-24] MEDS: Aspirin 81 MG TAB.CHEW PO SCH (08:13)
--- NOTE | 2017-02-24 16:29 | Internal Med Progress Note ---
Date of Encounter: 02/24/17 Time of Encounter: 13:00 - Assessment and plan (1) CVA (cerebral vascular accident) Current Visit: Yes Status: Acute Assessment and plan: CPT Notes the patient is getting little more muscle movement. Bucked up on the left side some shoulder movement and some proximal muscle please see the notes. He is using the sling and but otherwise participating in very happy to continue to improve Qualifiers: CVA mechanism: occlusion Precerebral and cerebral artery: middle cerebral artery Laterality of affected vessel: right Qualified Code(s): I63.511 - Cerebral infarction due to unspecified occlusion or stenosis of right middle cerebral artery - Time Spent With Patient less than 15 minutes - Subjective Interval history: He working with the therapist and seems to be doing very well. No complaints and doing very well. As good attitude working R - Constitutional Vitals: Temp Pulse Resp BP Pulse Ox 98.1 F 54 15 129/67 94 02/24/17 07:00 02/24/17 07:00 02/24/17 07:00 02/24/17 07:00 02/24/17 07:00 General appearance: Present: A&O X 3, pleasant, no acute distress, answers questions appropriately. Absent: severe distress - Head Head exam: Present: atraumatic, normocephalic - Neck Neck exam general surgery: Present: supple, trachea midline. Absent: lymphadenopathy - Respiratory Respiratory exam: Present: CTAB. Absent: accessory muscle use, rales, rhonchi, wheezes - Cardiovascular Cardiovascular exam: Present: RRR, +S1, +S2. Absent: diastolic murmur, gallop, rubs, systolic murmur Internal Medicine: Result - Labs CBC & Chem 7: 02/07/17 06:09 02/07/17 06:09 Labs: Lab is normal - VTE Deep Vein Thrombosis/Pulmonary Embolism Present on Admission: No Consult Discharge Plan - Plan Referrals: Nori Le MD [Primary Care Provider] -
[2017-02-24] MEDS: Insulin DETEMIR 100 UNIT/ML X5UNITS SQ SCH (22:09)
[2017-02-25] MEDS: Insulin LISPRO 300 UNITS/3 ML VIAL SQ SCH ×5 (04:59→21:35)
[2017-02-25] MEDS: Artificial Tears SOLN 15 ML BOTTLE BOTH EYES SCH ×2 (08:07→12:47)
[2017-02-25] MEDS: *HR* Metformin 500 MG TABLET PO SCH ×2 (08:36→17:28)
[2017-02-25] MEDS: Lisinopril 20 MG TABLET PO SCH (08:37)
[2017-02-25] MEDS: Aspirin 81 MG TAB.CHEW PO SCH (08:38)
[2017-02-25] MEDS: Patient Taking Own Medication 1 EACH PO SCH ×2 (08:38→17:29)
--- NOTE | 2017-02-25 10:56 | Internal Med Progress Note ---
Date of Encounter: 02/25/17 Time of Encounter: 10:55 - Assessment and plan (1) CVA (cerebral vascular accident) Current Visit: Yes Status: Acute Assessment and plan: She is working on a daily basis with all the therapist. Upper left extremity is improving slowly Qualifiers: CVA mechanism: occlusion Precerebral and cerebral artery: middle cerebral artery Laterality of affected vessel: right Qualified Code(s): I63.511 - Cerebral infarction due to unspecified occlusion or stenosis of right middle cerebral artery - Subjective Interval history: Attitude is good patient is working hard. Therapists working with his upper left extremity. He has requested a handicap placard which I will give to his the request - Constitutional Vitals: Temp Pulse Resp BP Pulse Ox 97.9 F 57 16 125/67 92 02/25/17 07:11 02/25/17 07:11 02/25/17 07:11 02/25/17 07:11 02/25/17 07:11 General appearance: Present: A&O X 3, pleasant, no acute distress, answers questions appropriately. Absent: severe distress - Head Head exam: Present: atraumatic, normocephalic - Neck Neck exam general surgery: Present: supple, trachea midline. Absent: lymphadenopathy - Cardiovascular Cardiovascular exam: Present: RRR, +S1, +S2. Absent: diastolic murmur, gallop, rubs, systolic murmur Internal Medicine: Result - Labs CBC & Chem 7: 02/07/17 06:09 02/07/17 06:09 Labs: Lab is stable - VTE Deep Vein Thrombosis/Pulmonary Embolism Present on Admission: No Consult Discharge Plan - Plan Referrals: Nori Le MD [Primary Care Provider] -
[2017-02-25] MEDS ORDERED: Artificial Tears SOLN 15 ML BOTTLE BOTH EYES PRN (14:28)
[2017-02-25] MEDS: Insulin DETEMIR 100 UNIT/ML X5UNITS SQ SCH (21:40)
[2017-02-25] MEDS: Melatonin 3 MG TABLET PO PRN (21:41)
[2017-02-26] MEDS: Insulin LISPRO 300 UNITS/3 ML VIAL SQ SCH ×4 (07:43→20:57)
[2017-02-26] MEDS: Lisinopril 20 MG TABLET PO SCH (08:55)
[2017-02-26] MEDS: Aspirin 81 MG TAB.CHEW PO SCH (08:55)
[2017-02-26] MEDS: *HR* Metformin 500 MG TABLET PO SCH ×2 (08:56→16:56)
[2017-02-26] MEDS: Patient Taking Own Medication 1 EACH PO SCH ×2 (08:57→16:56)
--- NOTE | 2017-02-26 17:21 | Internal Med Progress Note ---
Date of Encounter: 02/26/17 Time of Encounter: 15:00 - Assessment and plan (1) CVA (cerebral vascular accident) Current Visit: Yes Status: Acute Assessment and plan: Continue to work with therapist(s). Upper left extremity is improving slowly Qualifiers: CVA mechanism: occlusion Precerebral and cerebral artery: middle cerebral artery Laterality of affected vessel: right Qualified Code(s): I63.511 - Cerebral infarction due to unspecified occlusion or stenosis of right middle cerebral artery (2) Pitting edema Current Visit: Yes Status: Chronic Assessment and plan: Will monitor for now. Will consider starting diuretics as clinically indicated. - Time Spent With Patient 25 - 35 minutes - Subjective Interval history: - Doing well, eating and drinking fine. - No problem with BM or urination. - Has never noticed any LE swelling in the past. - Was on Lyrica 300mg BID in the past, but unclear why this was stopped. - Constitutional Vitals: Temp Pulse Resp BP Pulse Ox 97.4 F L 50 16 140/73 96 02/26/17 07:00 02/26/17 07:00 02/26/17 07:00 02/26/17 07:00 02/26/17 07:00 General appearance: Present: A&O X 3, pleasant, no acute distress, answers questions appropriately. Absent: severe distress Exam: Gen: A&Ox3, NAD. HEENT: NCAT. Neck: No palpable lymphadenopathy or thyromegaly. CV: RRR, S1S2. No murmur. Capillary refill < 2 seconds. Pulm: CTAB. No crackles, wheezing, or rhonchi. Abd: (+)BS. NDNT. No guarding, rigidity, or rebound. Neuro: Left-sided weakness. Skin: No rash. Ext: 1(+) pitting edema in LLE and trace pitting edema in RLE. Internal Medicine: Result - Labs CBC & Chem 7: 02/07/17 06:09 02/07/17 06:09 Labs: Reviewed - VTE Deep Vein Thrombosis/Pulmonary Embolism Present on Admission: No Consult Discharge Plan - Plan Referrals: Nori Le MD [Primary Care Provider] -
[2017-02-26] MEDS: Pregabalin 75 MG CAPSULE PO SCH (21:04)
[2017-02-26] MEDS: Insulin DETEMIR 100 UNIT/ML X5UNITS SQ SCH (21:04)
[2017-02-26] MEDS: Melatonin 3 MG TABLET PO PRN (21:05)
[2017-02-27] MEDS: Insulin LISPRO 300 UNITS/3 ML VIAL SQ SCH ×4 (08:05→21:19)
[2017-02-27] MEDS: *HR* Metformin 500 MG TABLET PO SCH ×2 (08:26→17:43)
[2017-02-27] MEDS: Aspirin 81 MG TAB.CHEW PO SCH (08:27)
[2017-02-27] MEDS: Lisinopril 20 MG TABLET PO SCH (08:27)
[2017-02-27] MEDS: Pregabalin 75 MG CAPSULE PO SCH ×2 (08:27→20:39)
[2017-02-27] MEDS: Patient Taking Own Medication 1 EACH PO SCH ×2 (08:28→17:44)
--- NOTE | 2017-02-27 10:54 | Internal Med Progress Note ---
Date of Encounter: 02/27/17 Time of Encounter: 10:00 - Assessment and plan (1) CVA (cerebral vascular accident) Current Visit: Yes Status: Acute Assessment and plan: Continue to work with therapist(s). LUE and LLE weakness slowly improving. Qualifiers: CVA mechanism: occlusion Precerebral and cerebral artery: middle cerebral artery Laterality of affected vessel: right Qualified Code(s): I63.511 - Cerebral infarction due to unspecified occlusion or stenosis of right middle cerebral artery (2) Pitting edema Current Visit: Yes Status: Chronic Assessment and plan: Improving. Will monitor for now. Will consider starting diuretics as clinically indicated. - Time Spent With Patient less than 15 minutes - Subjective Interval history: - Doing well, leg swelling improving, no other concern for now. - Constitutional Vitals: Temp Pulse Resp BP Pulse Ox 97.5 F L 53 18 151/71 92 02/27/17 08:57 02/27/17 08:57 02/27/17 08:57 02/27/17 08:57 02/27/17 08:57 General appearance: Present: A&O X 3, pleasant, no acute distress, answers questions appropriately. Absent: severe distress Exam: Gen: A&Ox3, NAD. HEENT: NCAT. Neck: No palpable lymphadenopathy or thyromegaly. CV: RRR, S1S2. No murmur. Capillary refill < 2 seconds. Pulm: CTAB. No crackles, wheezing, or rhonchi. Abd: (+)BS. NDNT. No guarding, rigidity, or rebound. Neuro: LUE and LLE weakness noted. Skin: No rash. Ext: Trace pitting edema in bilateral LE. Internal Medicine: Result - Labs CBC & Chem 7: 02/07/17 06:09 02/07/17 06:09 Labs: Reviewed - VTE Deep Vein Thrombosis/Pulmonary Embolism Present on Admission: No Consult Discharge Plan - Plan Referrals: Nori Le MD [Primary Care Provider] -
[2017-02-27] MEDS: Insulin DETEMIR 100 UNIT/ML X5UNITS SQ SCH (20:38)
[2017-02-27] MEDS: Ibuprofen 800 MG TABLET PO PRN (20:39)
[2017-02-28 05:17] LABS: Basophils # 0.1 K/mcL (0.0-0.2); Basophils % 1.6 %; Eosinophils # 0.5 K/mcL (0.0-0.6); Eosinophils % 5.9 %; Hematocrit 38.6 % (37.5-50.1); Hemoglobin 13.7 g/dL (12.9-16.9); Immature Granulocytes % 0.3 % (0-4); Lymphocytes # 3.2 K/mcL (0.6-4.6); Lymphocytes % 36.6 %; Mean Corpuscular HGB Conc 35.5 g/dL (31.6-35.5); Mean Corpuscular Hemoglobin 30.7 pg (28.0-33.3); Mean Corpuscular Volume 86.5 fL (83.0-100.0); Mean Platelet Volume 13.1 fL (9.4-12.4); Monocytes # 0.9 K/mcL (0.0-1.3); Monocytes % 10.1 %; Platelet Count 162 K/mcL (140-400); Red Blood Count 4.46 M/mcL (4.19-5.50); Red Cell Distribution Width 13.2 % (11.5-14.5); Segmented Neutrophils % 45.5 %
[2017-02-28 05:29] LABS: BUN/Creatinine Ratio 23 (6-26); Blood Urea Nitrogen 18 mg/dL (8-26); Calcium 9.2 mg/dL (8.6-10.8); Carbon Dioxide 23 mEq/L (19-29); Chloride 108 mEq/L (98-109); Glucose 149 mg/dL (70-99); Osmolality,Calculated 297 (280-300); Potassium 3.6 mEq/L (3.5-4.5); Sodium 141 mEq/L (136-145); eGFR For African Americans > 60 (> 60); eGFR For Non-African Americans > 60 (> 60)
[2017-02-28] MEDS: *HR* Metformin 500 MG TABLET PO SCH ×2 (08:11→21:07)
[2017-02-28] MEDS: Pregabalin 75 MG CAPSULE PO SCH ×2 (08:12→20:57)
[2017-02-28] MEDS: Aspirin 81 MG TAB.CHEW PO SCH (08:12)
[2017-02-28] MEDS: Lisinopril 20 MG TABLET PO SCH (08:12)
[2017-02-28] MEDS: Patient Taking Own Medication 1 EACH PO SCH ×2 (08:13→21:04)
[2017-02-28] MEDS: Insulin LISPRO 300 UNITS/3 ML VIAL SQ SCH ×4 (08:15→20:40)
--- NOTE | 2017-02-28 13:11 | Internal Med Progress Note ---
Date of Encounter: 02/28/17 Time of Encounter: 13:09 - Assessment and plan (1) CVA (cerebral vascular accident) Current Visit: Yes Status: Acute Assessment and plan: Patient's working with PT OT TR and speech. [place]án notes and progress is slow but he is utilizing more muscles in the shoulder girdle. He has maximal assistance and advancing his leg with ambulation Qualifiers: CVA mechanism: occlusion Precerebral and cerebral artery: middle cerebral artery Laterality of affected vessel: right Qualified Code(s): I63.511 - Cerebral infarction due to unspecified occlusion or stenosis of right middle cerebral artery - Time Spent With Patient less than 15 minutes - Subjective Interval history: Patient is continued to improve please see extensive PT OT TR. - Constitutional Vitals: Temp Pulse Resp BP Pulse Ox 97.6 F 65 16 128/61 96 02/28/17 07:02 02/28/17 07:02 02/28/17 07:02 02/28/17 07:02 02/28/17 07:02 General appearance: Present: A&O X 3, pleasant, no acute distress, answers questions appropriately. Absent: severe distress - Head Head exam: Present: atraumatic, normal inspection, normocephalic - Neck Neck exam general surgery: Present: supple, trachea midline. Absent: lymphadenopathy - Respiratory Respiratory exam: Present: CTAB. Absent: accessory muscle use, rales, rhonchi, wheezes - Cardiovascular Cardiovascular exam: Present: RRR, +S1, +S2. Absent: diastolic murmur, gallop, rubs, systolic murmur Internal Medicine: Result - Labs CBC & Chem 7: 02/28/17 05:05 02/28/17 05:05 Labs: Short CBC 02/28/17 Range/Units 05:05 WBC 8.7 (4.3-11.1) K/mcL Hgb 13.7 (12.9-16.9) g/dL Hct 38.6 (37.5-50.1) % Plt Count 162 (140-400) K/mcL Neutrophils # 4.0 (1.6-8.9) K/mcL BMP 02/28/17 05:05 Sodium 141 Potassium 3.6 Chloride 108 Carbon Dioxide 23 BUN 18 Creatinine 0.80 Glucose 149 H Calcium 9.2 Labs stable - VTE Deep Vein Thrombosis/Pulmonary Embolism Present on Admission: No Consult Discharge Plan - Plan Referrals: Nori Le MD [Primary Care Provider] -
[2017-02-28] MEDS: Insulin DETEMIR 100 UNIT/ML X5UNITS SQ SCH (20:58)
[2017-03-01] MEDS: Pregabalin 75 MG CAPSULE PO SCH ×2 (08:18→21:13)
[2017-03-01] MEDS: Aspirin 81 MG TAB.CHEW PO SCH (08:19)
[2017-03-01] MEDS: Lisinopril 20 MG TABLET PO SCH (08:19)
[2017-03-01] MEDS: *HR* Metformin 500 MG TABLET PO SCH ×2 (08:19→16:55)
[2017-03-01] MEDS: Patient Taking Own Medication 1 EACH PO SCH ×2 (08:20→16:59)
[2017-03-01] MEDS: Insulin LISPRO 300 UNITS/3 ML VIAL SQ SCH ×4 (08:20→21:12)
--- NOTE | 2017-03-01 10:30 | Internal Med Progress Note ---
Date of Encounter: 03/01/17 Time of Encounter: 10:29 - Assessment and plan (1) CVA (cerebral vascular accident) Current Visit: Yes Status: Acute Assessment and plan: Patient's here for rehabilitation status post ischemic CVA Qualifiers: CVA mechanism: occlusion Precerebral and cerebral artery: middle cerebral artery Laterality of affected vessel: right Qualified Code(s): I63.511 - Cerebral infarction due to unspecified occlusion or stenosis of right middle cerebral artery - Time Spent With Patient less than 15 minutes - Subjective Interval history: Patient is continued to improve please see extensive PT OT TR. Patient has ENT appointment tomorrow here in our clinic. We will keep him nothing by mouth. - Constitutional Vitals: Temp Pulse Resp BP Pulse Ox 97.9 F 56 16 152/73 94 03/01/17 07:00 03/01/17 07:00 03/01/17 07:00 03/01/17 07:00 03/01/17 07:00 General appearance: Present: A&O X 3, pleasant, no acute distress, answers questions appropriately. Absent: severe distress - Head Head exam: Present: atraumatic, normal inspection, normocephalic - Neck Neck exam general surgery: Present: supple, trachea midline. Absent: lymphadenopathy - Respiratory Respiratory exam: Present: CTAB. Absent: accessory muscle use, rales, rhonchi, wheezes - Cardiovascular Cardiovascular exam: Present: RRR, +S1, +S2. Absent: diastolic murmur, gallop, rubs, systolic murmur Internal Medicine: Result - Labs CBC & Chem 7: 02/28/17 05:05 02/28/17 05:05 Labs: Labs stable - VTE Deep Vein Thrombosis/Pulmonary Embolism Present on Admission: No Consult Discharge Plan - Plan Referrals: Nori Le MD [Primary Care Provider] -
[2017-03-01] MEDS: Insulin DETEMIR 100 UNIT/ML X5UNITS SQ SCH (21:12)
[2017-03-01] MEDS: Melatonin 3 MG TABLET PO PRN (21:13)
[2017-03-01] MEDS: Ibuprofen 800 MG TABLET PO PRN (21:14)
[2017-03-02] MEDS: Lisinopril 20 MG TABLET PO SCH (09:12)
[2017-03-02] MEDS: *HR* Metformin 500 MG TABLET PO SCH ×2 (09:12→17:40)
[2017-03-02] MEDS: Aspirin 81 MG TAB.CHEW PO SCH (09:12)
[2017-03-02] MEDS: Pregabalin 75 MG CAPSULE PO SCH ×2 (09:12→21:20)
[2017-03-02] MEDS: Patient Taking Own Medication 1 EACH PO SCH ×2 (09:13→18:00)
[2017-03-02] MEDS: Insulin LISPRO 300 UNITS/3 ML VIAL SQ SCH ×4 (09:16→21:19)
--- NOTE | 2017-03-02 12:20 | Physical Med Progress Note ---
Date of Encounter: 03/02/17 Time of Encounter: 12:17 Assessment and Plan (1) CVA (cerebral vascular accident) Current Visit: Yes Status: Acute Qualifiers: CVA mechanism: occlusion Precerebral and cerebral artery: middle cerebral artery Laterality of affected vessel: right Qualified Code(s): I63.511 - Cerebral infarction due to unspecified occlusion or stenosis of right middle cerebral artery Physical Medicine-PN: Subj Interval history: PMR PCC Note Mr. Nino is SBA/CGA for transfers. He requires support around the foot and ankle for transfers. He is ambulating with a chloe walker 150 feet. We will continue with intensive PT/OT/TR to continue goals of improved independence with transfers, ambulation and self care. Patient was discharged from . We will extend his discharge to 03/06/17. - Constitutional Vitals: Vital Signs Temp Pulse Resp BP Pulse Ox 03/02/17 08:42 97.5 F L 60 16 149/79 94 03/01/17 20:30 98.0 F 77 18 188/76 94 Intake and Output 03/01/17 03/02/17 03/02/17 23:59 07:59 15:59 Intake Total 300 / 300 Output Total 900 / 900 Balance -600 / -600 Intake: Oral 300 / 300 Output: Urine 900 / 900 Other: Meal npo Percent of Meal Consumed 0% Blood Glucose* 148 106 Physical Medicine-PN: Obj Data - Labs CBC & Chem 7: 02/28/17 05:05 02/28/17 05:05 Labs: Laboratory Results - last 24 hr 03/01/17 03/01/17 03/02/17 16:30 20:37 08:06 POC Glucose 245 H 148 H 106 H - VTE Deep Vein Thrombosis/Pulmonary Embolism Present on Admission: No Consult Discharge Plan - Plan Referrals: Nori Le MD [Primary Care Provider] -
[2017-03-02] MEDS: Insulin DETEMIR 100 UNIT/ML X5UNITS SQ SCH (21:19)
[2017-03-02] MEDS: Ibuprofen 800 MG TABLET PO PRN (21:20)
[2017-03-02] MEDS: Melatonin 3 MG TABLET PO PRN (21:20)
[2017-03-03] MEDS: Lisinopril 20 MG TABLET PO SCH (08:12)
[2017-03-03] MEDS: Aspirin 81 MG TAB.CHEW PO SCH (08:12)
[2017-03-03] MEDS: *HR* Metformin 500 MG TABLET PO SCH ×2 (08:12→18:26)
[2017-03-03] MEDS: Pregabalin 75 MG CAPSULE PO SCH ×2 (08:13→22:09)
[2017-03-03] MEDS: Patient Taking Own Medication 1 EACH PO SCH ×2 (08:13→18:27)
--- NOTE | 2017-03-03 13:36 | Internal Med Progress Note ---
Date of Encounter: 03/03/17 Time of Encounter: 13:34 - Assessment and plan (1) CVA (cerebral vascular accident) Current Visit: Yes Status: Acute Assessment and plan: Since working with PT OT TR and speech or daily basis. Showing improvement Qualifiers: CVA mechanism: occlusion Precerebral and cerebral artery: middle cerebral artery Laterality of affected vessel: right Qualified Code(s): I63.511 - Cerebral infarction due to unspecified occlusion or stenosis of right middle cerebral artery - Time Spent With Patient less than 15 minutes - Subjective Interval history: Occasional and well he is slowly regaining some muscle use in the affected extremity. I have got him set up for the nuclear stress test next week. - Constitutional Vitals: Temp Pulse Resp BP Pulse Ox 97.6 F 81 18 118/65 96 03/03/17 07:00 03/03/17 07:00 03/03/17 07:00 03/03/17 07:00 03/03/17 07:00 General appearance: Present: A&O X 3, pleasant, no acute distress, answers questions appropriately. Absent: severe distress - Head Head exam: Present: atraumatic, normal inspection, normocephalic - Neck Neck exam general surgery: Present: supple, trachea midline. Absent: lymphadenopathy - Respiratory Respiratory exam: Present: CTAB. Absent: accessory muscle use, rales, rhonchi, wheezes - Cardiovascular Cardiovascular exam: Present: RRR, +S1, +S2. Absent: diastolic murmur, gallop, rubs, systolic murmur Internal Medicine: Result - Labs CBC & Chem 7: 02/28/17 05:05 02/28/17 05:05 Labs: Lab is stable - VTE Deep Vein Thrombosis/Pulmonary Embolism Present on Admission: No Consult Discharge Plan - Plan Referrals: Nori Le MD [Primary Care Provider] -
[2017-03-03] MEDS: Insulin LISPRO 300 UNITS/3 ML VIAL SQ SCH ×3 (18:23→22:02)
[2017-03-03] MEDS: Insulin DETEMIR 100 UNIT/ML X5UNITS SQ SCH (22:08)
[2017-03-03] MEDS: Melatonin 3 MG TABLET PO PRN (22:09)
[2017-03-03] MEDS: Ibuprofen 800 MG TABLET PO PRN (22:09)
[2017-03-04] MEDS: Insulin LISPRO 300 UNITS/3 ML VIAL SQ SCH ×4 (08:08→22:08)
[2017-03-04] MEDS: Lisinopril 20 MG TABLET PO SCH (09:40)
[2017-03-04] MEDS: Pregabalin 75 MG CAPSULE PO SCH ×2 (09:41→22:10)
[2017-03-04] MEDS: Aspirin 81 MG TAB.CHEW PO SCH (09:41)
[2017-03-04] MEDS: *HR* Metformin 500 MG TABLET PO SCH ×2 (09:41→17:49)
[2017-03-04] MEDS: Patient Taking Own Medication 1 EACH PO SCH ×2 (09:41→17:49)
--- NOTE | 2017-03-04 13:40 | Internal Med Progress Note ---
Date of Encounter: 03/04/17 Time of Encounter: 13:38 - Assessment and plan (1) CVA (cerebral vascular accident) Current Visit: Yes Status: Acute Assessment and plan: Patient has CVA please see the notes his worker PT OT TR and speech. Also have him scheduled for his nuclear stress test Tuesday Qualifiers: CVA mechanism: occlusion Precerebral and cerebral artery: middle cerebral artery Laterality of affected vessel: right Qualified Code(s): I63.511 - Cerebral infarction due to unspecified occlusion or stenosis of right middle cerebral artery - Time Spent With Patient less than 15 minutes - Subjective Interval history: Occasional and well he is slowly regaining some muscle use in the affected extremity. I have got him set up for the nuclear stress test next week.CPT OT TR notes working with them please see notes working with them daily and improving - Constitutional Vitals: Temp Pulse Resp BP Pulse Ox 97.5 F L 59 16 158/90 94 03/04/17 07:28 03/04/17 07:28 03/04/17 07:28 03/04/17 07:28 03/04/17 07:28 General appearance: Present: A&O X 3, pleasant, no acute distress, answers questions appropriately. Absent: severe distress - Head Head exam: Present: atraumatic, normal inspection, normocephalic - Neck Neck exam general surgery: Present: supple, trachea midline. Absent: lymphadenopathy - Respiratory Respiratory exam: Present: CTAB. Absent: accessory muscle use, rales, rhonchi, wheezes - Cardiovascular Cardiovascular exam: Present: RRR, +S1, +S2. Absent: diastolic murmur, gallop, rubs, systolic murmur Internal Medicine: Result - Labs CBC & Chem 7: 02/28/17 05:05 02/28/17 05:05 Labs: Looks good - VTE Deep Vein Thrombosis/Pulmonary Embolism Present on Admission: No Consult Discharge Plan - Plan Referrals: Nori Le MD [Primary Care Provider] -
[2017-03-04] MEDS: Insulin DETEMIR 100 UNIT/ML X5UNITS SQ SCH (22:09)
[2017-03-04] MEDS: Ibuprofen 800 MG TABLET PO PRN (22:10)
[2017-03-04] MEDS: Melatonin 3 MG TABLET PO PRN (22:10)
[2017-03-05] MEDS: Insulin LISPRO 300 UNITS/3 ML VIAL SQ SCH ×4 (07:51→21:30)
--- NOTE | 2017-03-05 08:47 | Internal Med Progress Note ---
Date of Encounter: 03/05/17 Time of Encounter: 08:45 - Assessment and plan (1) CVA (cerebral vascular accident) Current Visit: Yes Status: Acute Assessment and plan: in rehab doing fine slowly recovery still avoid left side Qualifiers: CVA mechanism: occlusion Precerebral and cerebral artery: middle cerebral artery Laterality of affected vessel: right Qualified Code(s): I63.511 - Cerebral infarction due to unspecified occlusion or stenosis of right middle cerebral artery (2) Diabetes 1.5, managed as type 2 Current Visit: Yes Status: Chronic Assessment and plan: some what better and improving and better controlled continue present medications (3) Essential (primary) hypertension Current Visit: Yes Status: Chronic Assessment and plan: stable no new change (4) Peripheral angiopathy Current Visit: No Status: Chronic Assessment and plan: stable on meds pain is well controlled (5) Hyperlipidemia Current Visit: Yes Status: Chronic Qualifiers: Hyperlipidemia type: mixed hyperlipidemia Qualified Code(s): E78.2 - Mixed hyperlipidemia (6) Tobacco abuse Current Visit: Yes Status: Chronic (7) Diabetic ulcer of foot associated with diabetes mellitus due to underlying condition, limited to breakdown of skin Current Visit: Yes Status: Acute Assessment and plan: wound improving and much better . Not examined today however nursing notes reviewed . no new change needed Qualifiers: Diabetic foot ulcer location: midfoot Laterality: left Qualified Code(s) : E08.621 - Diabetes mellitus due to underlying condition with foot ulcer; L97.421 - Non-pressure chronic ulcer of left heel and midfoot limited to breakdown of skin (8) Multinodular goiter (nontoxic) Current Visit: Yes Status: Chronic (9) Charcot foot due to diabetes mellitus Current Visit: No Status: Chronic (10) Neuropathy Current Visit: Yes Status: Chronic (11) Obstructive apnea Current Visit: Yes Status: Chronic (12) Conjunctivitis Current Visit: Yes Status: Resolved Qualifiers: Conjunctivitis type: unspecified Laterality: left Qualified Code(s): H10.9 - Unspecified conjunctivitis - Subjective Interval history: NHeSeen as cross coverage . He is doing very well . Thyroid biopsy still pending . 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 Absent: severe distress - Head Head exam: Present: atraumatic - Eye Eye exam: Present: EOMI, PERRL. Absent: scleral icterus - Neck Neck exam general surgery: Present: supple. Absent: tenderness - Respiratory Respiratory exam: Present: CTAB. Absent: chest wall tenderness, decreased breath sounds, respiratory distress, rhonchi, stridor, wheezes, tachypnea - Cardiovascular Cardiovascular exam: Present: +S1, +S2. Absent: gallop, irregular rhythm, JVD, tachycardia - GI/Abdominal GI/Abdominal exam: Present: normal bowel sounds, soft. Absent: mass, rebound, rigid - Neurological Exam Neurological exam: Present: altered, oriented X3. Absent: no focal deficits, facial droop, speech deficit Additional comments: neuro examination as before improving .In rehab Internal Medicine: Result - Labs CBC & Chem 7: 02/28/17 05:05 02/28/17 05:05 - VTE Deep Vein Thrombosis/Pulmonary Embolism Present on Admission: No Consult Discharge Plan - Plan Referrals: Nori Le MD [Primary Care Provider] -
[2017-03-05] MEDS: Pregabalin 75 MG CAPSULE PO SCH ×2 (08:51→21:27)
[2017-03-05] MEDS: *HR* Metformin 500 MG TABLET PO SCH ×2 (08:51→17:11)
[2017-03-05] MEDS: Lisinopril 20 MG TABLET PO SCH (08:52)
[2017-03-05] MEDS: Patient Taking Own Medication 1 EACH PO SCH ×2 (08:52→17:16)
[2017-03-05] MEDS: Aspirin 81 MG TAB.CHEW PO SCH (08:52)
[2017-03-05] MEDS: Insulin DETEMIR 100 UNIT/ML X5UNITS SQ SCH (21:28)
--- NOTE | 2017-03-06 08:15 | Internal Med Progress Note ---
Date of Encounter: 03/06/17 Time of Encounter: 08:13 - Assessment and plan (1) CVA (cerebral vascular accident) Current Visit: Yes Status: Acute Assessment and plan: stable no new change In rehab coming close to his discharge soon . Qualifiers: CVA mechanism: occlusion Precerebral and cerebral artery: middle cerebral artery Laterality of affected vessel: right Qualified Code(s): I63.511 - Cerebral infarction due to unspecified occlusion or stenosis of right middle cerebral artery (2) Diabetes 1.5, managed as type 2 Current Visit: Yes Status: Chronic Assessment and plan: Blood sugars is some what better control . some non compliance however overall doing better (3) Essential (primary) hypertension Current Visit: Yes Status: Chronic Assessment and plan: stable on present meds no new change (4) Peripheral angiopathy Current Visit: No Status: Chronic Assessment and plan: pain is well controlled on present medications (5) Hyperlipidemia Current Visit: Yes Status: Chronic Qualifiers: Hyperlipidemia type: mixed hyperlipidemia Qualified Code(s): E78.2 - Mixed hyperlipidemia (6) Tobacco abuse Current Visit: Yes Status: Chronic (7) Diabetic ulcer of foot associated with diabetes mellitus due to underlying condition, limited to breakdown of skin Current Visit: Yes Status: Acute Assessment and plan: healing well no new change Continue present management Qualifiers: Diabetic foot ulcer location: midfoot Laterality: left Qualified Code(s) : E08.621 - Diabetes mellitus due to underlying condition with foot ulcer; L97.421 - Non-pressure chronic ulcer of left heel and midfoot limited to breakdown of skin (8) Multinodular goiter (nontoxic) Current Visit: Yes Status: Chronic (9) Charcot foot due to diabetes mellitus Current Visit: No Status: Chronic Assessment and plan: stable no new change (10) Neuropathy Current Visit: Yes Status: Chronic Assessment and plan: stable on meds (11) Obstructive apnea Current Visit: Yes Status: Chronic (12) Conjunctivitis Current Visit: Yes Status: Resolved Qualifiers: Conjunctivitis type: unspecified Laterality: left Qualified Code(s): H10.9 - Unspecified conjunctivitis - Subjective Interval history: Cross coverage . Sleeping on is side no new complains no chest pain Nausea vomiting or any other complains - Constitutional Vitals: Temp Pulse Resp BP Pulse Ox 98.2 F 72 18 179/79 95 03/06/17 07:48 03/06/17 07:48 03/06/17 07:48 03/06/17 07:48 03/06/17 07:48 General appearance: Present: A&O X 3, pleasant, no acute distress, answers questions appropriately. Absent: severe distress - Head Head exam: Present: atraumatic - Eye Eye exam: Present: EOMI, PERRL. Absent: scleral icterus Pupils: Present: PERRL - Neck Neck exam general surgery: Present: supple. Absent: tenderness, nuchal rigidity - Respiratory Respiratory exam: Present: CTAB. Absent: decreased breath sounds, respiratory distress, rhonchi, wheezes, tachypnea - Cardiovascular Cardiovascular exam: Present: +S1, +S2. Absent: irregular rhythm, JVD - GI/Abdominal GI/Abdominal exam: Present: normal bowel sounds, soft. Absent: pulsatile mass, rigid - Neurological Exam Neurological exam: Present: alert, oriented X3. Absent: facial droop, speech deficit Additional comments: Neurological examination as before no new change weakness same as before Internal Medicine: Result - Labs CBC & Chem 7: 02/28/17 05:05 02/28/17 05:05 - VTE Deep Vein Thrombosis/Pulmonary Embolism Present on Admission: No Consult Discharge Plan - Plan Referrals: Nori Le MD [Primary Care Provider] -
[2017-03-06] MEDS: Insulin LISPRO 300 UNITS/3 ML VIAL SQ SCH ×4 (08:29→21:32)
[2017-03-06] MEDS: *HR* Metformin 500 MG TABLET PO SCH ×2 (08:30→16:40)
[2017-03-06] MEDS: Lisinopril 20 MG TABLET PO SCH (08:30)
[2017-03-06] MEDS: Pregabalin 75 MG CAPSULE PO SCH ×2 (08:30→21:29)
[2017-03-06] MEDS: Aspirin 81 MG TAB.CHEW PO SCH (08:31)
[2017-03-06] MEDS: Patient Taking Own Medication 1 EACH PO SCH ×2 (08:31→16:41)
[2017-03-06] MEDS: Insulin DETEMIR 100 UNIT/ML X5UNITS SQ SCH (21:30)
[2017-03-07 05:21] LABS: Basophils # 0.1 K/mcL (0.0-0.2); Basophils % 1.2 %; Eosinophils # 0.4 K/mcL (0.0-0.6); Eosinophils % 4.8 %; Hematocrit 38.5 % (37.5-50.1); Hemoglobin 13.6 g/dL (12.9-16.9); Immature Granulocytes % 0.3 % (0-4); Lymphocytes # 3.5 K/mcL (0.6-4.6); Lymphocytes % 37.8 %; Mean Corpuscular HGB Conc 35.3 g/dL (31.6-35.5); Mean Corpuscular Hemoglobin 30.4 pg (28.0-33.3); Mean Corpuscular Volume 85.9 fL (83.0-100.0); Mean Platelet Volume 12.7 fL (9.4-12.4); Monocytes % 10.6 %; Neutrophils # 4.2 K/mcL (1.6-8.9); Platelet Count 176 K/mcL (140-400); Red Blood Count 4.48 M/mcL (4.19-5.50); Red Cell Distribution Width 13.5 % (11.5-14.5); Segmented Neutrophils % 45.3 %
[2017-03-07 05:37] LABS: BUN/Creatinine Ratio 20 (6-26); Blood Urea Nitrogen 14 mg/dL (8-26); Calcium 9.2 mg/dL (8.6-10.8); Carbon Dioxide 22 mEq/L (19-29); Chloride 110 mEq/L (98-109); Glucose 108 mg/dL (70-99); Osmolality,Calculated 293 (280-300); Potassium 3.6 mEq/L (3.5-4.5); Sodium 141 mEq/L (136-145); eGFR For African Americans > 60 (> 60); eGFR For Non-African Americans > 60 (> 60)
[2017-03-07] MEDS: *HR* Metformin 500 MG TABLET PO SCH ×2 (09:32→17:28)
[2017-03-07] MEDS: Aspirin 81 MG TAB.CHEW PO SCH (09:32)
[2017-03-07] MEDS: Patient Taking Own Medication 1 EACH PO SCH ×2 (09:34→17:28)
[2017-03-07] MEDS: Pregabalin 75 MG CAPSULE PO SCH ×2 (09:39→22:00)
[2017-03-07] MEDS: Lisinopril 20 MG TABLET PO SCH (09:40)
[2017-03-07] MEDS: Insulin LISPRO 300 UNITS/3 ML VIAL SQ SCH ×4 (13:04→21:59)
--- NOTE | 2017-03-07 14:35 | Internal Med Progress Note ---
Date of Encounter: 03/07/17 Time of Encounter: 14:33 - Assessment and plan (1) CVA (cerebral vascular accident) Current Visit: Yes Status: Acute Assessment and plan: Patient's here for CVA working with all modalities Qualifiers: CVA mechanism: occlusion Precerebral and cerebral artery: middle cerebral artery Laterality of affected vessel: right Qualified Code(s): I63.511 - Cerebral infarction due to unspecified occlusion or stenosis of right middle cerebral artery - Time Spent With Patient less than 15 minutes - Subjective Interval history: Mr. Nino is showing really good response now. Advancing the leg and more muscular use each in his upper extremity were very pleased with the progress. Tuesday he will have a nuclear stress test and will continue to work with him. - Constitutional Vitals: Temp Pulse Resp BP Pulse Ox 97.7 F 57 16 118/56 93 03/07/17 06:55 03/07/17 06:55 03/07/17 06:55 03/07/17 06:55 03/07/17 06:55 General appearance: Present: A&O X 3, pleasant, no acute distress, answers questions appropriately. Absent: severe distress - Head Head exam: Present: atraumatic, normal inspection, normocephalic - Neck Neck exam general surgery: Present: supple, trachea midline. Absent: lymphadenopathy - Respiratory Respiratory exam: Present: CTAB. Absent: accessory muscle use, rales, rhonchi, wheezes - Cardiovascular Cardiovascular exam: Present: RRR, +S1, +S2. Absent: diastolic murmur, gallop, rubs, systolic murmur Internal Medicine: Result - Labs CBC & Chem 7: 03/07/17 05:00 03/07/17 05:00 Labs: Short CBC 03/07/17 Range/Units 05:00 WBC 9.2 (4.3-11.1) K/mcL Hgb 13.6 (12.9-16.9) g/dL Hct 38.5 (37.5-50.1) % Plt Count 176 (140-400) K/mcL Neutrophils # 4.2 (1.6-8.9) K/mcL BMP 03/07/17 05:00 Sodium 141 Potassium 3.6 Chloride 110 H Carbon Dioxide 22 BUN 14 Creatinine 0.69 L Glucose 108 H Calcium 9.2 Lab is stable - VTE Deep Vein Thrombosis/Pulmonary Embolism Present on Admission: No Consult Discharge Plan - Plan Referrals: Nori Le MD [Primary Care Provider] -
[2017-03-07] MEDS: Melatonin 3 MG TABLET PO PRN (22:00)
[2017-03-07] MEDS: Ibuprofen 800 MG TABLET PO PRN (22:00)
[2017-03-07] MEDS: Insulin DETEMIR 100 UNIT/ML X5UNITS SQ SCH (22:00)
[2017-03-08] MEDS: Aspirin 81 MG TAB.CHEW PO SCH (09:14)
[2017-03-08] MEDS: Lisinopril 20 MG TABLET PO SCH (09:14)
[2017-03-08] MEDS: *HR* Metformin 500 MG TABLET PO SCH ×2 (09:14→17:12)
[2017-03-08] MEDS: Pregabalin 75 MG CAPSULE PO SCH ×2 (09:15→21:48)
[2017-03-08] MEDS: Patient Taking Own Medication 1 EACH PO SCH ×2 (09:17→17:12)
[2017-03-08] MEDS: Insulin LISPRO 300 UNITS/3 ML VIAL SQ SCH ×4 (09:19→21:47)
--- NOTE | 2017-03-08 13:11 | Internal Med Progress Note ---
Date of Encounter: 03/08/17 Time of Encounter: 13:10 - Assessment and plan (1) CVA (cerebral vascular accident) Current Visit: Yes Status: Acute Assessment and plan: Patient has CVA for which he is receiving rehabilitation. Apparently also had some chest pain rule out which will be taking care of tomorrow with a nuclear scan and stress test Qualifiers: CVA mechanism: occlusion Precerebral and cerebral artery: middle cerebral artery Laterality of affected vessel: right Qualified Code(s): I63.511 - Cerebral infarction due to unspecified occlusion or stenosis of right middle cerebral artery - Time Spent With Patient less than 15 minutes - Subjective Interval history: Mr. Nino is showing really good response now. Advancing the leg and more muscular use each in his upper extremity were very pleased with the progress. Tuesday he will have a nuclear stress test and will continue to work with him.. Patient will be doing his nuclear stress test tomorrow. - Constitutional Vitals: Temp Pulse Resp BP Pulse Ox 97.6 F 77 16 147/70 96 03/08/17 07:28 03/08/17 07:28 03/08/17 07:28 03/08/17 07:28 03/08/17 07:28 General appearance: Present: A&O X 3, pleasant, no acute distress, answers questions appropriately. Absent: severe distress - Head Head exam: Present: atraumatic, normal inspection, normocephalic - Neck Neck exam general surgery: Present: supple, trachea midline. Absent: lymphadenopathy - Respiratory Respiratory exam: Present: CTAB. Absent: accessory muscle use, rales, rhonchi, wheezes - Cardiovascular Cardiovascular exam: Present: RRR, +S1, +S2. Absent: diastolic murmur, gallop, rubs, systolic murmur Internal Medicine: Result - Labs CBC & Chem 7: 03/07/17 05:00 03/07/17 05:00 Labs: Cardiac Enzymes 03/08/17 03/08/17 Range/Units 05:25 09:58 Troponin I 0.01 0.00 (0-0.03) ng/mL Lab looks good - VTE Deep Vein Thrombosis/Pulmonary Embolism Present on Admission: No Consult Discharge Plan - Plan Referrals: Nori Le MD [Primary Care Provider] -
[2017-03-08] MEDS: Insulin DETEMIR 100 UNIT/ML X5UNITS SQ SCH (21:48)
[2017-03-09] MEDS ORDERED: Regadenoson 0.4 MG/5 ML SYRINGE IVP ONE (07:29)
[2017-03-09] MEDS: Insulin LISPRO 300 UNITS/3 ML VIAL SQ SCH ×4 (09:39→20:19)
[2017-03-09] MEDS: Lisinopril 20 MG TABLET PO SCH (09:40)
[2017-03-09] MEDS: *HR* Metformin 500 MG TABLET PO SCH ×2 (09:40→18:10)
[2017-03-09] MEDS: Aspirin 81 MG TAB.CHEW PO SCH (09:40)
[2017-03-09] MEDS: Pregabalin 75 MG CAPSULE PO SCH ×2 (09:40→20:16)
[2017-03-09] MEDS: Patient Taking Own Medication 1 EACH PO SCH ×2 (09:41→18:11)
--- NOTE | 2017-03-09 12:55 | Nuclear Medicine Stress Report ---
Regadenoson Nuclear Stress Name: Clark Nino Date of Study: 03/09/2017 Date: 1960 Ht: 73.0 in Medical Record#: [id number] Age: 56 Wt: 250.0 lb Gender: Male Order #: [id number] [facility] Supervising Provider: Mario Mccauley MD Reading Physician: Eusebio Michaels DO, FAC, [facility] Ordering Physician: Gregg Ramos DO Stress Technologist: Adamaris Tolliver, MICHELLE, [facility] Mandolin Repairer: Nannette Frey Indications: Coronary Artery Disease Impression: Pharmacologic stress ECG is non-diagnostic for ischemia due to submaximal HR. Gated EF = 41%. The left ventricle is dilated. LVEDV = 218 mL. Large sized, moderate to severe intensity, fixed perfusion defect throughout the inferior, inferolateral, all apical segments and apex suggestive of a prior infarct(s). Minimal denise-infarct ischemia visualized in the apical lateral segment (SDS 1). No ischemia in the remaining territories. History: Hypertension Diabetes Hypercholesteremia History of Smoking Stress Test Summary: Stress Test Type: Pharmacologic Regadenoson 0.4mg/5ml given IV Baseline Information: Initial Heart Rate: 52 Blood Pressure: 124/86 Stress Information: Test Terminated Due to (primary): As per protocol Maximum Blood Pressure: 142/72 Maximum Heart Rate: 77 Percent Maximum Heart Rate Achieved: 47 Double Product: 76775 METS Reached: 1 Symptoms: Shortness of breath Nuclear Summary: SPECT myocardial perfusion imaging using Tc99m Sestamibi given intravenously was performed at rest and following cardiac stress testing. The resting images were obtained following initial dose of 11.4 mCi. Following stress an additional dose of 33.9 mCi was given at peak exercise or 30 seconds post regadenoson infusion. Medication Given: Time Medication Dose Units Route Findings: Stress Note * Sinus bradycardia at rest. * Occasional PVCs noted prior to exam beginning. * Pharmacologic stress ECG is non-diagnostic for ischemia due to submaximal HR. * Occasional PVCs noted during stress. * Patient had no chest pain during stress. * Normal hemodynamic responses to pharmacologic stress. Study Quality * Study quality is average. Gated EF % * Gated EF = 41%. Left Ventricle * The left ventricle is dilated. LVEDV = 218 mL. Inferior Perfusion Rest * Moderate to severe intensity defect throughout the inferior, inferolateral, all apical segments, and apex. Inferior Perfusion Stress * Moderate to severe intensity defect throughout the inferior, inferolateral, all apical segments, and apex. TID * No evidence of transient ischemic dilatation. TID ratio = 1.34. Lung Uptake * There is no evidence of increase lung uptake. Updated by Eusebio Michaels DO, FACZane, TIMOTHY, DORIAN on 03/09/2017 12:46:02 PM electronically signed on 03/09/2017 12:47:58 PM with status of Final
--- NOTE | 2017-03-09 15:11 | Internal Med Progress Note ---
Date of Encounter: 03/09/17 Time of Encounter: 15:09 - Assessment and plan (1) CVA (cerebral vascular accident) Current Visit: Yes Status: Acute Assessment and plan: Patient has CVA with hemiparesis. But he is really regaining a lot of muscle function now and is transferring and ambulating with the hemiwalker Qualifiers: CVA mechanism: occlusion Precerebral and cerebral artery: middle cerebral artery Laterality of affected vessel: right Qualified Code(s): I63.511 - Cerebral infarction due to unspecified occlusion or stenosis of right middle cerebral artery - Time Spent With Patient less than 15 minutes - Subjective Interval history: Mr. Nino is showing really good response now. Advancing the leg and more muscular use each in his upper extremity were very pleased with the progress. Tuesday he will have a nuclear stress test and will continue to work with him.. Patient will be doing his nuclear stress test tomorrow. - Constitutional Vitals: Temp Pulse Resp BP Pulse Ox 97.7 F 59 16 166/69 99 03/09/17 07:00 03/09/17 07:00 03/09/17 07:00 03/09/17 07:00 03/09/17 07:00 General appearance: Present: A&O X 3, pleasant, no acute distress, answers questions appropriately. Absent: severe distress - Head Head exam: Present: atraumatic, normocephalic - Neck Neck exam general surgery: Present: supple, trachea midline. Absent: lymphadenopathy - Respiratory Respiratory exam: Present: CTAB. Absent: accessory muscle use, rales, rhonchi, wheezes - Cardiovascular Cardiovascular exam: Present: RRR, +S1, +S2. Absent: diastolic murmur, gallop, rubs, systolic murmur Internal Medicine: Result - Labs CBC & Chem 7: 03/07/17 05:00 03/07/17 05:00 Labs: Labs stable - VTE Deep Vein Thrombosis/Pulmonary Embolism Present on Admission: No Consult Discharge Plan - Plan Referrals: Nori Le MD [Primary Care Provider] -
[2017-03-09] MEDS: Insulin DETEMIR 100 UNIT/ML X5UNITS SQ SCH (20:18)
[2017-03-10] MEDS: Insulin LISPRO 300 UNITS/3 ML VIAL SQ SCH ×4 (07:34→20:41)
[2017-03-10] MEDS: Patient Taking Own Medication 1 EACH PO SCH ×3 (08:17→16:54)
[2017-03-10] MEDS: *HR* Metformin 500 MG TABLET PO SCH ×2 (08:17→16:55)
[2017-03-10] MEDS: Pregabalin 75 MG CAPSULE PO SCH ×2 (08:17→20:38)
[2017-03-10] MEDS: Lisinopril 20 MG TABLET PO SCH (08:17)
[2017-03-10] MEDS: Aspirin 81 MG TAB.CHEW PO SCH (08:17)
--- NOTE | 2017-03-10 13:09 | Internal Med Progress Note ---
Date of Encounter: 03/10/17 Time of Encounter: 13:07 - Assessment and plan (1) CVA (cerebral vascular accident) Current Visit: Yes Status: Acute Assessment and plan: Patient's here for treatment CVA. He is receiving PT OT TR. Qualifiers: CVA mechanism: occlusion Precerebral and cerebral artery: middle cerebral artery Laterality of affected vessel: right Qualified Code(s): I63.511 - Cerebral infarction due to unspecified occlusion or stenosis of right middle cerebral artery - Time Spent With Patient less than 15 minutes - Subjective Interval history: Patient's doing well. The nuclear stress test showed no acute ischemic changes. Staff feels it would behoove the patient in benefit is morale also to go to the rehabilitation technique and if he can arrange transportation will not let him go - Constitutional Vitals: Temp Pulse Resp BP Pulse Ox 98.1 F 63 16 152/81 96 03/10/17 06:33 03/10/17 06:33 03/10/17 06:33 03/10/17 06:33 03/10/17 06:33 General appearance: Present: A&O X 3, pleasant, no acute distress, answers questions appropriately. Absent: severe distress - Head Head exam: Present: atraumatic, normocephalic - Neck Neck exam general surgery: Present: supple, trachea midline. Absent: lymphadenopathy - Respiratory Respiratory exam: Present: CTAB. Absent: accessory muscle use, rales, rhonchi, wheezes - Cardiovascular Cardiovascular exam: Present: RRR, +S1, +S2. Absent: diastolic murmur, gallop, rubs, systolic murmur - GI/Abdominal GI/Abdominal exam: Present: normal bowel sounds, soft, no peritoneal signs. Absent: distended, tenderness Internal Medicine: Result - Labs CBC & Chem 7: 03/07/17 05:00 03/07/17 05:00 - VTE Deep Vein Thrombosis/Pulmonary Embolism Present on Admission: No Consult Discharge Plan - Plan Referrals: Nori Le MD [Primary Care Provider] -
[2017-03-10] MEDS: Insulin DETEMIR 100 UNIT/ML X5UNITS SQ SCH (20:39)
[2017-03-11] MEDS: Insulin LISPRO 300 UNITS/3 ML VIAL SQ SCH ×4 (08:00→20:36)
[2017-03-11] MEDS: Aspirin 81 MG TAB.CHEW PO SCH (08:51)
[2017-03-11] MEDS: *HR* Metformin 500 MG TABLET PO SCH ×2 (08:51→18:24)
[2017-03-11] MEDS: Lisinopril 20 MG TABLET PO SCH (08:51)
[2017-03-11] MEDS: Pregabalin 75 MG CAPSULE PO SCH ×2 (08:52→20:37)
[2017-03-11] MEDS: Patient Taking Own Medication 1 EACH PO SCH ×2 (08:52→18:24)
--- NOTE | 2017-03-11 14:00 | Internal Med Progress Note ---
Date of Encounter: 03/11/17 Time of Encounter: 13:58 - Assessment and plan (1) CVA (cerebral vascular accident) Current Visit: Yes Status: Acute Qualifiers: CVA mechanism: occlusion Precerebral and cerebral artery: middle cerebral artery Laterality of affected vessel: right Qualified Code(s): I63.511 - Cerebral infarction due to unspecified occlusion or stenosis of right middle cerebral artery - Constitutional Vitals: Temp Pulse Resp BP Pulse Ox 97.6 F 60 16 131/60 95 03/11/17 06:58 03/11/17 06:58 03/11/17 06:58 03/11/17 06:58 03/11/17 06:58 General appearance: Present: A&O X 3, pleasant, no acute distress, answers questions appropriately. Absent: severe distress - Head Head exam: Present: atraumatic, normal inspection, normocephalic - Neck Neck exam general surgery: Present: supple, trachea midline. Absent: lymphadenopathy - Respiratory Respiratory exam: Present: CTAB. Absent: accessory muscle use, rales, rhonchi, wheezes - Cardiovascular Cardiovascular exam: Present: RRR, +S1, +S2. Absent: diastolic murmur, gallop, rubs, systolic murmur Internal Medicine: Result - Labs CBC & Chem 7: 03/07/17 05:00 03/07/17 05:00 - VTE Deep Vein Thrombosis/Pulmonary Embolism Present on Admission: No Consult Discharge Plan - Plan Referrals: Nori Le MD [Primary Care Provider] -
[2017-03-11] MEDS: Insulin DETEMIR 100 UNIT/ML X5UNITS SQ SCH (20:36)
[2017-03-11] MEDS: Melatonin 3 MG TABLET PO PRN (20:37)
[2017-03-11] MEDS: Ibuprofen 800 MG TABLET PO PRN (20:38)
[2017-03-12] MEDS: Pregabalin 75 MG CAPSULE PO SCH ×2 (08:57→20:10)
[2017-03-12] MEDS: Lisinopril 20 MG TABLET PO SCH (08:58)
[2017-03-12] MEDS: Patient Taking Own Medication 1 EACH PO SCH ×2 (08:58→17:38)
[2017-03-12] MEDS: *HR* Metformin 500 MG TABLET PO SCH ×2 (08:58→17:35)
[2017-03-12] MEDS: Aspirin 81 MG TAB.CHEW PO SCH (08:58)
[2017-03-12] MEDS: Insulin LISPRO 300 UNITS/3 ML VIAL SQ SCH ×4 (08:59→20:21)
--- NOTE | 2017-03-12 11:55 | Internal Med Progress Note ---
Date of Encounter: 03/12/17 Time of Encounter: 11:30 - Assessment and plan (1) CVA (cerebral vascular accident) Current Visit: Yes Status: Acute Assessment and plan: Continue to work with therapists. Qualifiers: CVA mechanism: occlusion Precerebral and cerebral artery: middle cerebral artery Laterality of affected vessel: right Qualified Code(s): I63.511 - Cerebral infarction due to unspecified occlusion or stenosis of right middle cerebral artery (2) Thyroid nodule Current Visit: Yes Status: Acute Assessment and plan: - Per report U/S report on 02/01/2017, "Dominant 2.9cm heterogeneous, hypoechoic nodule in the left thyroid lobe with mild internal vascularity." - Hold aspirin and Plavix due to scheduled biopsy on 03/18/2017. - Time Spent With Patient 25 - 35 minutes - Subjective Interval history: - Feeling "good." - Ready for biopsy in neck on Tuesday. - Constitutional Vitals: Temp Pulse Resp BP Pulse Ox 97.3 F L 61 14 134/71 97 03/12/17 07:00 03/12/17 07:00 03/12/17 07:00 03/12/17 07:00 03/12/17 07:00 General appearance: Present: A&O X 3, pleasant, no acute distress, answers questions appropriately. Absent: severe distress Exam: Gen: A&Ox3, NAD. HEENT: NCAT. Neck: No palpable lymphadenopathy or thyromegaly. CV: RRR, S1S2. No murmur. Capillary refill < 2 seconds. Pulm: CTAB. Abd: (+)BS. NDNT. Skin: No rash. Neuro: LUE and LLE weakness noted. Ext: 2(+) pitting edema in LLE. Internal Medicine: Result - Labs CBC & Chem 7: 03/07/17 05:00 03/07/17 05:00 - VTE Deep Vein Thrombosis/Pulmonary Embolism Present on Admission: No Consult Discharge Plan - Plan Referrals: Nori Le MD [Primary Care Provider] -
[2017-03-12] MEDS: Ibuprofen 800 MG TABLET PO PRN (20:09)
[2017-03-12] MEDS: Insulin DETEMIR 100 UNIT/ML X5UNITS SQ SCH (20:10)
[2017-03-12] MEDS: Melatonin 3 MG TABLET PO PRN (20:10)
[2017-03-13] MEDS: Insulin LISPRO 300 UNITS/3 ML VIAL SQ SCH ×4 (07:37→21:13)
[2017-03-13] MEDS: *HR* Metformin 500 MG TABLET PO SCH ×2 (09:20→17:23)
[2017-03-13] MEDS: Lisinopril 20 MG TABLET PO SCH (09:21)
[2017-03-13] MEDS: Patient Taking Own Medication 1 EACH PO SCH ×2 (09:24→17:30)
--- NOTE | 2017-03-13 10:59 | Internal Med Progress Note ---
Date of Encounter: 03/13/17 Time of Encounter: 10:30 - Assessment and plan (1) CVA (cerebral vascular accident) Current Visit: Yes Status: Acute Assessment and plan: Continue to work with therapists. Qualifiers: CVA mechanism: occlusion Precerebral and cerebral artery: middle cerebral artery Laterality of affected vessel: right Qualified Code(s): I63.511 - Cerebral infarction due to unspecified occlusion or stenosis of right middle cerebral artery (2) Thyroid nodule Current Visit: Yes Status: Acute Assessment and plan: - Per report [facility]/S report on 02/01/2017, "Dominant 2.9cm heterogeneous, hypoechoic nodule in the left thyroid lobe with mild internal vascularity." - Hold aspirin and Plavix due to scheduled biopsy on 03/18/2017. - Time Spent With Patient less than 15 minutes - Subjective Interval history: - Doing well. - Constitutional Vitals: Temp Pulse Resp BP Pulse Ox 97.9 F 66 16 134/56 93 03/13/17 07:17 03/13/17 07:17 03/13/17 07:17 03/13/17 07:17 03/13/17 07:17 General appearance: Present: A&O X 3, pleasant, no acute distress, answers questions appropriately. Absent: severe distress Exam: Gen: A&Ox3, NAD. HEENT: NCAT. Neck: No palpable lymphadenopathy or thyromegaly. CV: RRR, S1S2. No murmur. Capillary refill < 2 seconds. Pulm: CTAB. Abd: (+)BS. NDNT. Skin: No rash. Neuro: LUE and LLE weakness noted. Ext: 2(+) pitting edema in LLE. Internal Medicine: Result - Labs CBC & Chem 7: 03/07/17 05:00 03/07/17 05:00 - VTE Deep Vein Thrombosis/Pulmonary Embolism Present on Admission: No Consult Discharge Plan - Plan Referrals: Nori Le MD [Primary Care Provider] -
[2017-03-13] MEDS: Pregabalin 75 MG CAPSULE PO SCH ×2 (11:54→19:56)
[2017-03-13] MEDS: Ibuprofen 800 MG TABLET PO PRN (19:55)
[2017-03-13] MEDS: Insulin DETEMIR 100 UNIT/ML X5UNITS SQ SCH (21:11)
[2017-03-14 06:01] LABS: Basophils # 0.1 K/mcL (0.0-0.2); Basophils % 1.4 %; Eosinophils # 0.4 K/mcL (0.0-0.6); Eosinophils % 4.8 %; Hematocrit 36.6 % (37.5-50.1); Immature Granulocytes % 0.3 % (0-4); Lymphocytes % 38.6 %; Mean Corpuscular HGB Conc 35.5 g/dL (31.6-35.5); Mean Corpuscular Hemoglobin 30.6 pg (28.0-33.3); Mean Corpuscular Volume 86.1 fL (83.0-100.0); Mean Platelet Volume 13.4 fL (9.4-12.4); Monocytes # 0.8 K/mcL (0.0-1.3); Neutrophils # 3.5 K/mcL (1.6-8.9); Platelet Count 159 K/mcL (140-400); Red Blood Count 4.25 M/mcL (4.19-5.50); Red Cell Distribution Width 13.5 % (11.5-14.5); Segmented Neutrophils % 44.9 %
[2017-03-14 06:16] LABS: BUN/Creatinine Ratio 24 (6-26); Blood Urea Nitrogen 16 mg/dL (8-26); Calcium 8.9 mg/dL (8.6-10.8); Carbon Dioxide 22 mEq/L (19-29); Chloride 109 mEq/L (98-109); Glucose 200 mg/dL (70-99); Osmolality,Calculated 295 (280-300); Potassium 3.3 mEq/L (3.5-4.5); Sodium 139 mEq/L (136-145); eGFR For African Americans > 60 (> 60); eGFR For Non-African Americans > 60 (> 60)
[2017-03-14] MEDS: Pregabalin 75 MG CAPSULE PO SCH ×2 (08:20→20:32)
[2017-03-14] MEDS: *HR* Metformin 500 MG TABLET PO SCH ×2 (08:21→17:06)
[2017-03-14] MEDS: Lisinopril 20 MG TABLET PO SCH (08:21)
[2017-03-14] MEDS: Patient Taking Own Medication 1 EACH PO SCH ×2 (08:21→17:07)
[2017-03-14] MEDS: Insulin LISPRO 300 UNITS/3 ML VIAL SQ SCH ×4 (08:22→20:32)
--- NOTE | 2017-03-14 14:05 | Internal Med Progress Note ---
Date of Encounter: 03/14/17 Time of Encounter: 13:57 - Assessment and plan (1) CVA (cerebral vascular accident) Current Visit: Yes Status: Acute Assessment and plan: Mr. Nino did have CVA significant left hemiparesis and is working daily with the therapist Qualifiers: CVA mechanism: occlusion Precerebral and cerebral artery: middle cerebral artery Laterality of affected vessel: right Qualified Code(s): I63.511 - Cerebral infarction due to unspecified occlusion or stenosis of right middle cerebral artery - Time Spent With Patient less than 15 minutes - Subjective Interval history: Patient is doing well almost at the end of his stay. He will be discharged assuredly going on 927 - Constitutional Vitals: Temp Pulse Resp BP Pulse Ox 97.4 F L 55 16 139/65 93 03/14/17 07:11 03/14/17 07:11 03/14/17 07:11 03/14/17 07:11 03/14/17 07:11 General appearance: Present: A&O X 3, pleasant, no acute distress, answers questions appropriately. Absent: severe distress - Head Head exam: Present: atraumatic, normal inspection, normocephalic - Neck Neck exam general surgery: Present: supple, trachea midline. Absent: lymphadenopathy - Respiratory Respiratory exam: Present: CTAB. Absent: accessory muscle use, rales, rhonchi, wheezes - Cardiovascular Cardiovascular exam: Present: RRR, +S1, +S2. Absent: diastolic murmur, gallop, rubs, systolic murmur Internal Medicine: Result - Labs CBC & Chem 7: 03/14/17 05:05 03/14/17 05:05 Labs: Short CBC 03/14/17 Range/Units 05:05 WBC 7.8 (4.3-11.1) K/mcL Hgb 13.0 (12.9-16.9) g/dL Hct 36.6 L (37.5-50.1) % Plt Count 159 (140-400) K/mcL Neutrophils # 3.5 (1.6-8.9) K/mcL BMP 03/14/17 05:05 Sodium 139 Potassium 3.3 L Chloride 109 Carbon Dioxide 22 BUN 16 Creatinine 0.68 L Glucose 200 H Calcium 8.9 Recheck his potassium. Lab looks good checking potassium - VTE Deep Vein Thrombosis/Pulmonary Embolism Present on Admission: No Consult Discharge Plan - Plan Referrals: Nori Le MD [Primary Care Provider] -
--- NOTE | 2017-03-14 15:15 | Physician Discharge Referral ---
Home Health/Hosp Referral Info Transfer to: Home Health Provider in Charge Post Discharge: PCP - Diagnosis (1) CVA (cerebral vascular accident) Priority: Primary Status: Acute - Respiratory Orders Smoking Cessation: Smoking cessation has been advised. For more information, call the [place] Tobacco Quit Line at 4-980-WVXY-NOW. - Diet/Nutrition Diet/Nutrition Orders: No Concentrated Sweets - Activity Activity Orders: Ambulate - Services Needed Following services are medically necessary services: Nursing, Physical Therapy Other Treatments: Patient is unable to ambulate independently. Will need a wheelchair he needs to be able to do activities of daily living and participate be mobile - Transfer Medications Home Medications: Atorvastatin [Lipitor] 80 mg PO HS 01/29/17 [History] Clopidogrel [Plavix] 75 mg PO DAILY 01/29/17 [History] Icosapent Ethyl [Vascepa] 1 gm PO BID 01/29/17 [History] Insulin Glargine,Hum.rec.anlog [Lantus Solostar] 40 unit SQ HS 01/29/17 [History ] Lisinopril [Zestril] 20 mg PO DAILY 01/29/17 [History] Pregabalin [Lyrica] 300 mg PO BID 01/29/17 [History] metFORMIN [Glucophage] 1,000 mg PO BIDWM 01/29/17 [History] Allergies/Adverse Reactions: 3 Allergy/AdvReac Type Severity Reaction Status Date / Time No Known Allergies Allergy Verified 01/26/17 10:17 Certification: Further, I certify that my clinical findings support that this patient is homebound (i.e. absences from home require considerable and taxing effort and are for medical reasons or moravian services or infrequently or short duration when for other reasons) because: Homebound Reason: Patient requires assistance of a person or device to safely leave home Attestation: My signature below is to certify that this patient is under my care and that I, or nurse practitioner, or a physician's assistant real estate manager working with me, has a face-to -face encounter with this patient.
[2017-03-14] MEDS: Insulin DETEMIR 100 UNIT/ML X5UNITS SQ SCH (20:31)
[2017-03-15] MEDS: Insulin LISPRO 300 UNITS/3 ML VIAL SQ SCH ×5 (08:10→20:52)
[2017-03-15] MEDS: Pregabalin 75 MG CAPSULE PO SCH ×2 (08:23→22:02)
[2017-03-15] MEDS: Lisinopril 20 MG TABLET PO SCH (08:23)
[2017-03-15] MEDS: *HR* Metformin 500 MG TABLET PO SCH ×2 (08:23→16:37)
[2017-03-15] MEDS: Patient Taking Own Medication 1 EACH PO SCH ×2 (09:51→16:38)
--- NOTE | 2017-03-15 12:46 | Internal Med Progress Note ---
Date of Encounter: 03/15/17 Time of Encounter: 12:45 - Assessment and plan (1) CVA (cerebral vascular accident) Current Visit: Yes Status: Acute Assessment and plan: Doing well C PT OT TR notes. Discharge states tomorrow Qualifiers: CVA mechanism: occlusion Precerebral and cerebral artery: middle cerebral artery Laterality of affected vessel: right Qualified Code(s): I63.511 - Cerebral infarction due to unspecified occlusion or stenosis of right middle cerebral artery - Time Spent With Patient less than 15 minutes - Subjective Interval history: Patient is doing well almost at the end of his stay. He will be discharged assuredly going on 03/16 - Constitutional Vitals: Temp Pulse Resp BP Pulse Ox 97.8 F 52 16 138/76 96 03/15/17 07:00 03/15/17 07:00 03/15/17 07:00 03/15/17 07:00 03/15/17 07:00 General appearance: Present: A&O X 3, pleasant, no acute distress, answers questions appropriately. Absent: severe distress - Head Head exam: Present: atraumatic, normal inspection, normocephalic - Neck Neck exam general surgery: Present: supple, trachea midline. Absent: lymphadenopathy - Respiratory Respiratory exam: Present: CTAB. Absent: accessory muscle use, rales, rhonchi, wheezes - Cardiovascular Cardiovascular exam: Present: RRR, +S1, +S2. Absent: diastolic murmur, gallop, rubs, systolic murmur Internal Medicine: Result - Labs CBC & Chem 7: 03/14/17 05:05 03/14/17 05:05 Labs: Recheck potassium in the a.m. - VTE Documentation of Mechanical Device: Graduated compression elastic hosiery Deep Vein Thrombosis/Pulmonary Embolism Present on Admission: No Consult Discharge Plan - Plan Referrals: Nori Le MD [Primary Care Provider] -
[2017-03-15] MEDS: Melatonin 3 MG TABLET PO PRN (22:01)
[2017-03-15] MEDS: Insulin DETEMIR 100 UNIT/ML X5UNITS SQ SCH (22:03)
[2017-03-16 05:58] LABS: BUN/Creatinine Ratio 21 (6-26); Blood Urea Nitrogen 13 mg/dL (8-26); Calcium 9.3 mg/dL (8.6-10.8); Carbon Dioxide 21 mEq/L (19-29); Chloride 110 mEq/L (98-109); Glucose 96 mg/dL (70-99); Osmolality,Calculated 294 (280-300); Potassium 3.8 mEq/L (3.5-4.5); Sodium 142 mEq/L (136-145); eGFR For African Americans > 60 (> 60); eGFR For Non-African Americans > 60 (> 60)
[2017-03-16 07:23] VITALS: BP 155/71
[2017-03-16] MEDS: Insulin LISPRO 300 UNITS/3 ML VIAL SQ SCH ×2 (08:23→12:19)
[2017-03-16] MEDS: *HR* Metformin 500 MG TABLET PO SCH (08:35)
[2017-03-16] MEDS: Pregabalin 75 MG CAPSULE PO SCH (08:36)
[2017-03-16] MEDS: Lisinopril 20 MG TABLET PO SCH (08:36)
[2017-03-16] MEDS: Patient Taking Own Medication 1 EACH PO SCH (08:38)
--- NOTE | 2017-03-16 11:58 | Discharge Summary ---
Date of Encounter: 03/16/17 Time of Encounter: 11:56 - Discharge Diagnosis (1) CVA (cerebral vascular accident) Priority: Primary Status: Acute Comments: Patient was here for CVA and much improved overall. Qualifiers: CVA mechanism: occlusion Precerebral and cerebral artery: middle cerebral artery Laterality of affected vessel: right Qualified Code(s): I63.511 - Cerebral infarction due to unspecified occlusion or stenosis of right middle cerebral artery - Discharge Medications Home Medications: Atorvastatin [Lipitor] 80 mg PO HS 01/29/17 [History] Clopidogrel [Plavix] 75 mg PO DAILY 01/29/17 [History] Icosapent Ethyl [Vascepa] 1 gm PO BID 01/29/17 [History] Insulin Glargine,Hum.rec.anlog [Lantus Solostar] 40 unit SQ HS 01/29/17 [History ] Lisinopril [Zestril] 20 mg PO DAILY 01/29/17 [History] Pregabalin [Lyrica] 300 mg PO BID 01/29/17 [History] metFORMIN [Glucophage] 1,000 mg PO BIDWM 01/29/17 [History] Allergies/Adverse Reactions: 3 Allergy/AdvReac Type Severity Reaction Status Date / Time No Known Allergies Allergy Verified 01/26/17 10:17 Date of admission: 01/29/17 17:06 Primary care physician: Nori Le MD Consults: 01/31/17 08:03 Consult to Physical Therapy [CONS] Routine Comment: Evaluate, develop and implement POC Reason for Consult: evaluation and treat Consult to Recreational Therapy [CONS] Routine Comment: Evaluate, develop and implement POC Consult to Merchandise Handler [CONS] Routine Reason for SW Consult: for discharge planning Consult to Speech Therapy [CONS] Routine Comment: Evaluate, develop and implement POC Reason for Consult: cva Call Completed: Yes 01/31/17 18:03 Consult to Occupational Therapy [CONS] Routine Comment: Evaluate, develop and implement POC Reason for Consult: evaluate and treat 02/02/17 10:57 Consult to Psychology [CONS] Routine Consulting Provider: Sheree Rodgers Reason for Consult: s/p cva Call Completed: Yes Discharging clinician: Gregg Ramos Anticipated date of discharge: 03/16/17 - Patient Status Disposition: Home, Self-Care Condition: Good Functional capacity at discharge: wheelchair bound Overall status at discharge: patient is not back to baseline - Discharge Instructions Follow Up With: Nori Le MD [Primary Care Provider] - - Diet and Activity Activity: as per physical therapy Diet: diabetic diet Interval History: She was admitted after CVA. And he has taken speech PT OT and TR. Hospital course: Mr. Nino is a 56 year old male - Time Spent with Patient Total time spent providing and/or coordinating discharge services: - Constitutional Vitals: Temp Pulse Resp BP Pulse Ox 97.4 F L 58 16 155/71 96 03/16/17 07:00 03/16/17 07:00 03/16/17 07:00 03/16/17 07:00 03/16/17 07:00 General appearance: Present: A&O X 3, pleasant, no acute distress, answers questions appropriately. Absent: severe distress - Head Head exam: Present: atraumatic, normal inspection, normocephalic - Neck Neck exam general surgery: Present: supple, trachea midline. Absent: lymphadenopathy - Respiratory Respiratory exam: Present: CTAB. Absent: accessory muscle use, rales, rhonchi, wheezes - Cardiovascular Cardiovascular exam: Present: RRR, +S1, +S2. Absent: diastolic murmur, gallop, rubs, systolic murmur - VTE Documentation of Mechanical Device: Graduated compression elastic hosiery Deep Vein Thrombosis/Pulmonary Embolism Present on Admission: No
== END 2017-03-16 16:00 | disposition home or self-care (01) | DRG 57 ==
LOC: INPGRE 17:06
PROVIDERS: ADMIT Internal Medicine; ATTEND Internal Medicine

== ENCOUNTER 2020-12-29 10:16 | Inpatient (IN) ==
[2020-12-29] MEDS ORDERED: Dextrose Gel 15 GM/37.5 ML TUBE PO PRN ×2 (17:44)
[2020-12-29] MEDS ORDERED: D5% in Water 1,000 ML IVC PRN (17:44)
[2020-12-29] MEDS ORDERED: *HR* Dextrose 50 % in Water (Vial) 50 ML VIAL IVP PRN (17:44)
[2020-12-29] MEDS: *HR* Metformin 500 MG TABLET PO SCH (20:12)
[2020-12-29] MEDS: Lactulose Oral Soln 20 GM/30 ML UDC PO SCH (20:12)
[2020-12-29] MEDS: Insulin LISPRO 300 UNITS/3 ML VIAL SUBQ SCH (20:12)
[2020-12-30] MEDS: hydrALAZINE 25 MG TABLET PO SCH ×3 (00:15→16:18)
[2020-12-30 05:13] LABS: BUN/Creatinine Ratio 15 (6-26); Blood Urea Nitrogen 9 mg/dL (8-23); Calcium 8.2 mg/dL (8.6-10.3); Carbon Dioxide 20 mEq/L (23-29); Chloride 101 mEq/L (98-107); Glucose 102 mg/dL (70-105); Osmolality,Calculated 271 (280-300); Potassium 4.1 mEq/L (3.5-5.1); Sodium 131 mEq/L (136-145); eGFR For African Americans > 60 (> 60); eGFR For Non-African Americans > 60 (> 60)
[2020-12-30] MEDS: *HR* Enoxaparin 40 MG/0.4 ML SYRINGE SQ SCH (05:44)
[2020-12-30] MEDS: Insulin LISPRO 300 UNITS/3 ML VIAL SUBQ SCH ×4 (08:24→20:24)
[2020-12-30] MEDS: *HR* Metformin 500 MG TABLET PO SCH (08:36)
[2020-12-30] MEDS: amLODIPine 5 MG TABLET PO SCH (08:36)
[2020-12-30] MEDS: Aspirin Enteric Coated 81 MG Tablet PO SCH (08:36)
[2020-12-30] MEDS: carvediloL 6.25 MG TABLET PO SCH ×2 (08:36→16:18)
[2020-12-30] MEDS: lisinopriL 20 MG TABLET PO SCH (08:36)
[2020-12-30] MEDS: Lactulose Oral Soln 20 GM/30 ML UDC PO SCH ×2 (08:38→20:26)
[2020-12-30] MEDS: Insulin DETEMIR 100 UNIT/ML X5UNITS SUBQ SCH (08:38)
[2020-12-31] MEDS: *HR* Metformin 500 MG TABLET PO SCH ×3 (00:48→20:52)
[2020-12-31] MEDS: hydrALAZINE 25 MG TABLET PO SCH ×3 (00:53→17:09)
[2020-12-31] MEDS: *HR* Enoxaparin 40 MG/0.4 ML SYRINGE SQ SCH (06:19)
[2020-12-31] MEDS: Insulin LISPRO 300 UNITS/3 ML VIAL SUBQ SCH ×4 (07:48→20:52)
[2020-12-31] MEDS: Lactulose Oral Soln 20 GM/30 ML UDC PO SCH ×2 (07:50→20:52)
[2020-12-31] MEDS: lisinopriL 20 MG TABLET PO SCH (07:51)
[2020-12-31] MEDS: amLODIPine 5 MG TABLET PO SCH (07:51)
[2020-12-31] MEDS: Aspirin Enteric Coated 81 MG Tablet PO SCH (07:51)
[2020-12-31] MEDS: carvediloL 6.25 MG TABLET PO SCH ×2 (07:52→17:09)
[2020-12-31] MEDS: Insulin DETEMIR 100 UNIT/ML X5UNITS SUBQ SCH (10:57)
[2020-12-31] MEDS ORDERED: Ibuprofen 600 MG TABLET PO PRN (15:31)
[2020-12-31] MEDS: Ondansetron ODT 4 MG TAB.RAPDIS SL PRN (15:45)
[2021-01-01] MEDS: hydrALAZINE 25 MG TABLET PO SCH ×3 (00:35→16:40)
[2021-01-01 04:42] LABS: Bilirubin,Urine Negative (Negative); Blood,Urine Negative (Negative); Clarity,Urine Clear (Clear); Color,Urine Yellow (Yellow); Glucose,Urine (UA) Normal (Normal); Ketones,Urine Negative (Negative); Leukocyte Esterase,Urine Negative (Negative); Nitrite,Urine Negative (Negative); Protein,Urine Negative (Neg-Trace); Urobilinogen,Urine Normal (Normal)
[2021-01-01] MEDS: *HR* Enoxaparin 40 MG/0.4 ML SYRINGE SQ SCH (05:31)
[2021-01-01 05:57] LABS: Hematocrit 40.4 % (37.5-50.1); Hemoglobin 13.9 g/dL (12.9-16.9); Mean Corpuscular HGB Conc 34.4 g/dL (31.6-35.5); Mean Corpuscular Hemoglobin 29.9 pg (28.0-33.3); Mean Corpuscular Volume 86.9 fL (83.0-100.0); Mean Platelet Volume 11.2 fL (9.4-12.4); Platelet Count 349 K/mcL (140-400); Red Blood Count 4.65 M/mcL (4.19-5.50); Red Cell Distribution Width 13.2 % (11.5-14.5); White Blood Count 8.9 K/mcL (4.3-11.1)
[2021-01-01 06:11] LABS: Alanine Aminotransferase 12 Units/L (7-52); Albumin 3.3 g/dL (3.5-5.7); Albumin/Globulin Ratio 1.2 (1.1-2.2); Alkaline Phosphatase 112 Units/L (34-104); Aspartate Amino Transferase 15 Units/L (13-39); BUN/Creatinine Ratio 19 (6-26); Bilirubin,Total 0.8 mg/dL (0.3-1.0); Blood Urea Nitrogen 14 mg/dL (8-23); Calcium 8.6 mg/dL (8.6-10.3); Carbon Dioxide 24 mEq/L (23-29); Chloride 98 mEq/L (98-107); Globulin 2.8 g/dL (2.4-3.5); Glucose 133 mg/dL (70-105); Osmolality,Calculated 270 (280-300); Potassium 4.1 mEq/L (3.5-5.1); Sodium 129 mEq/L (136-145); Total Protein 6.1 g/dL (6.4-8.9); eGFR For African Americans > 60 (> 60); eGFR For Non-African Americans > 60 (> 60)
[2021-01-01] MEDS: Insulin LISPRO 300 UNITS/3 ML VIAL SUBQ SCH ×4 (10:02→21:21)
[2021-01-01] MEDS: Lactulose Oral Soln 20 GM/30 ML UDC PO SCH ×2 (10:06→21:22)
[2021-01-01] MEDS: amLODIPine 5 MG TABLET PO SCH (10:06)
[2021-01-01] MEDS: *HR* Metformin 500 MG TABLET PO SCH ×2 (10:07→21:20)
[2021-01-01] MEDS: Aspirin Enteric Coated 81 MG Tablet PO SCH (10:07)
[2021-01-01] MEDS: lisinopriL 20 MG TABLET PO SCH (10:07)
[2021-01-01] MEDS: carvediloL 6.25 MG TABLET PO SCH ×2 (10:07→16:40)
[2021-01-01] MEDS: Insulin DETEMIR 100 UNIT/ML X5UNITS SUBQ SCH (10:26)
[2021-01-01 12:28] LABS: BUN/Creatinine Ratio 18 (6-26); Blood Urea Nitrogen 14 mg/dL (8-23); Calcium 9.1 mg/dL (8.6-10.3); Carbon Dioxide 23 mEq/L (23-29); Chloride 96 mEq/L (98-107); Glucose 167 mg/dL (70-105); Osmolality,Calculated 270 (280-300); Potassium 4.6 mEq/L (3.5-5.1); Sodium 128 mEq/L (136-145); eGFR For African Americans > 60 (> 60); eGFR For Non-African Americans > 60 (> 60)
[2021-01-01 14:55] LABS: Sodium, Urine 19.7 mEq/L
[2021-01-01] MEDS ORDERED: 0.9 % Sodium Chloride 1,000 ML IV ONE (16:02)
[2021-01-01] MEDS: Ondansetron ODT 4 MG TAB.RAPDIS SL PRN (17:33)
[2021-01-02] MEDS: hydrALAZINE 25 MG TABLET PO SCH ×3 (00:47→16:59)
[2021-01-02] MEDS: *HR* Enoxaparin 40 MG/0.4 ML SYRINGE SQ SCH (05:46)
[2021-01-02] MEDS: Insulin LISPRO 300 UNITS/3 ML VIAL SUBQ SCH ×4 (07:58→22:03)
[2021-01-02] MEDS: Insulin DETEMIR 100 UNIT/ML X5UNITS SUBQ SCH (08:36)
[2021-01-02] MEDS: Lactulose Oral Soln 20 GM/30 ML UDC PO SCH ×2 (08:37→22:03)
[2021-01-02] MEDS: amLODIPine 5 MG TABLET PO SCH (08:37)
[2021-01-02] MEDS: Aspirin Enteric Coated 81 MG Tablet PO SCH (08:37)
[2021-01-02] MEDS: *HR* Metformin 500 MG TABLET PO SCH ×2 (08:37→22:02)
[2021-01-02] MEDS: carvediloL 6.25 MG TABLET PO SCH ×2 (08:37→16:59)
[2021-01-02] MEDS: lisinopriL 20 MG TABLET PO SCH (08:38)
[2021-01-03] MEDS: hydrALAZINE 25 MG TABLET PO SCH ×3 (00:31→17:58)
[2021-01-03] MEDS: Ondansetron ODT 4 MG TAB.RAPDIS SL PRN (00:32)
[2021-01-03 05:33] LABS: BUN/Creatinine Ratio 15 (6-26); Blood Urea Nitrogen 10 mg/dL (8-23); Carbon Dioxide 24 mEq/L (23-29); Chloride 100 mEq/L (98-107); Glucose 138 mg/dL (70-105); Osmolality,Calculated 273 (280-300); Potassium 4.3 mEq/L (3.5-5.1); Sodium 131 mEq/L (136-145); eGFR For African Americans > 60 (> 60); eGFR For Non-African Americans > 60 (> 60)
[2021-01-03] MEDS: *HR* Enoxaparin 40 MG/0.4 ML SYRINGE SQ SCH (05:40)
[2021-01-03] MEDS: Insulin LISPRO 300 UNITS/3 ML VIAL SUBQ SCH ×4 (08:28→22:20)
[2021-01-03] MEDS: lisinopriL 20 MG TABLET PO SCH (08:29)
[2021-01-03] MEDS: Insulin DETEMIR 100 UNIT/ML X5UNITS SUBQ SCH (08:29)
[2021-01-03] MEDS: carvediloL 6.25 MG TABLET PO SCH ×2 (08:29→17:57)
[2021-01-03] MEDS: Aspirin Enteric Coated 81 MG Tablet PO SCH (08:29)
[2021-01-03] MEDS: amLODIPine 5 MG TABLET PO SCH (08:29)
[2021-01-03] MEDS: Lactulose Oral Soln 20 GM/30 ML UDC PO SCH ×2 (08:30→22:20)
[2021-01-03] MEDS: *HR* Metformin 500 MG TABLET PO SCH ×2 (08:30→22:19)
[2021-01-04] MEDS: hydrALAZINE 25 MG TABLET PO SCH ×3 (01:20→15:10)
[2021-01-04] MEDS: *HR* Enoxaparin 40 MG/0.4 ML SYRINGE SQ SCH (06:21)
[2021-01-04] MEDS: lisinopriL 20 MG TABLET PO SCH (08:27)
[2021-01-04] MEDS: amLODIPine 5 MG TABLET PO SCH (08:27)
[2021-01-04] MEDS: *HR* Metformin 500 MG TABLET PO SCH ×2 (08:27→22:28)
[2021-01-04] MEDS: carvediloL 6.25 MG TABLET PO SCH ×2 (08:28→17:38)
[2021-01-04] MEDS: Aspirin Enteric Coated 81 MG Tablet PO SCH (08:29)
[2021-01-04] MEDS: Lactulose Oral Soln 20 GM/30 ML UDC PO SCH ×2 (08:29→22:29)
[2021-01-04] MEDS: Insulin DETEMIR 100 UNIT/ML X5UNITS SUBQ SCH (08:29)
[2021-01-04] MEDS: FLUoxetine 20 MG CAPSULE PO SCH (08:29)
[2021-01-04] MEDS: Insulin LISPRO 300 UNITS/3 ML VIAL SUBQ SCH ×4 (08:30→22:30)
[2021-01-05] MEDS: hydrALAZINE 25 MG TABLET PO SCH ×3 (00:01→17:14)
[2021-01-05] MEDS: *HR* Enoxaparin 40 MG/0.4 ML SYRINGE SQ SCH (05:05)
[2021-01-05 05:21] LABS: BUN/Creatinine Ratio 15 (6-26); Blood Urea Nitrogen 9 mg/dL (8-23); Carbon Dioxide 24 mEq/L (23-29); Chloride 100 mEq/L (98-107); Glucose 140 mg/dL (70-105); Osmolality,Calculated 275 (280-300); Sodium 132 mEq/L (136-145); eGFR For African Americans > 60 (> 60); eGFR For Non-African Americans > 60 (> 60)
[2021-01-05] MEDS: Insulin LISPRO 300 UNITS/3 ML VIAL SUBQ SCH ×4 (07:57→22:08)
[2021-01-05] MEDS: *HR* Metformin 500 MG TABLET PO SCH ×2 (07:58→22:06)
[2021-01-05] MEDS: amLODIPine 5 MG TABLET PO SCH (07:58)
[2021-01-05] MEDS: lisinopriL 20 MG TABLET PO SCH (07:58)
[2021-01-05] MEDS: FLUoxetine 20 MG CAPSULE PO SCH (07:58)
[2021-01-05] MEDS: Aspirin Enteric Coated 81 MG Tablet PO SCH (07:58)
[2021-01-05] MEDS: Lactulose Oral Soln 20 GM/30 ML UDC PO SCH ×2 (07:59→22:07)
[2021-01-05] MEDS: carvediloL 6.25 MG TABLET PO SCH ×2 (07:59→17:14)
[2021-01-05] MEDS: Insulin DETEMIR 100 UNIT/ML X5UNITS SUBQ SCH (08:05)
[2021-01-05] MEDS: Ondansetron ODT 4 MG TAB.RAPDIS SL PRN (08:51)
[2021-01-06] MEDS: hydrALAZINE 25 MG TABLET PO SCH ×2 (00:14→08:20)
[2021-01-06] MEDS: *HR* Enoxaparin 40 MG/0.4 ML SYRINGE SQ SCH (05:45)
[2021-01-06 06:47] VITALS: BP 149/84
[2021-01-06] MEDS: Insulin LISPRO 300 UNITS/3 ML VIAL SUBQ SCH (07:55)
[2021-01-06] MEDS: Lactulose Oral Soln 20 GM/30 ML UDC PO SCH (08:18)
[2021-01-06] MEDS: amLODIPine 5 MG TABLET PO SCH (08:19)
[2021-01-06] MEDS: carvediloL 6.25 MG TABLET PO SCH (08:19)
[2021-01-06] MEDS: Aspirin Enteric Coated 81 MG Tablet PO SCH (08:19)
[2021-01-06] MEDS: *HR* Metformin 500 MG TABLET PO SCH (08:19)
[2021-01-06] MEDS: lisinopriL 20 MG TABLET PO SCH (08:20)
[2021-01-06] MEDS: FLUoxetine 20 MG CAPSULE PO SCH (08:20)
[2021-01-06] MEDS: Insulin DETEMIR 100 UNIT/ML X5UNITS SUBQ SCH (08:28)
== END 2021-01-06 10:13 | DRG 56 ==
LOC: INPGRE 17:17
PROVIDERS: ADMIT Family Medicine; ATTEND Family Medicine

== ENCOUNTER 2021-12-16 12:03 | Inpatient (IN) ==
[2021-12-16] MEDS ORDERED: NON-FORMULARY MEDICATION 1 EACH EACH (Vancomycin 1,500 MG/265 ML Iv.Soln) IVPB SCH (15:45)
[2021-12-16] MEDS: carvediloL 6.25 MG TABLET PO SCH (18:52)
[2021-12-16] MEDS: *HR* Metformin 500 MG TABLET PO SCH (18:52)
[2021-12-16] MEDS ORDERED: D5% in Water 1,000 ML IVC PRN (22:21)
[2021-12-16] MEDS ORDERED: *HR* Dextrose 50 % in Water (Syg) 50 ML SYRINGE IVP PRN (22:21)
[2021-12-16] MEDS ORDERED: Dextrose Gel 15 GM/37.5 ML TUBE PO PRN ×2 (22:21)
[2021-12-16] MEDS: Insulin LISPRO 300 UNITS/3 ML VIAL SUBQ SCH (22:51)
[2021-12-17 05:58] LABS: Basophils # 0.1 K/mcL (0.0-0.2); Basophils % 0.9 %; Eosinophils # 0.3 K/mcL (0.0-0.6); Eosinophils % 2.4 %; Hematocrit 32.7 % (37.5-50.1); Hemoglobin 11.2 g/dL (12.9-16.9); Immature Granulocytes % 0.6 % (0-4); Lymphocytes # 1.9 K/mcL (0.6-4.6); Lymphocytes % 16.2 %; Mean Corpuscular HGB Conc 34.3 g/dL (31.6-35.5); Mean Corpuscular Hemoglobin 29.7 pg (28.0-33.3); Mean Corpuscular Volume 86.7 fL (83.0-100.0); Mean Platelet Volume 11.1 fL (9.4-12.4); Monocytes # 1.2 K/mcL (0.0-1.3); Monocytes % 9.8 %; Platelet Count 377 K/mcL (140-400); Red Blood Count 3.77 M/mcL (4.19-5.50); Red Cell Distribution Width 12.6 % (11.5-14.5); Segmented Neutrophils % 70.1 %; White Blood Count 11.9 K/mcL (4.3-11.1)
[2021-12-17 05:59] LABS: Neutrophils # 8.3 K/mcL (1.6-8.9)
[2021-12-17] MEDS: *HR* Enoxaparin 40 MG/0.4 ML SYRINGE SQ SCH (07:08)
[2021-12-17] MEDS ORDERED: Vancomycin 1,500 MG/265 ML IV.SOLN IVPB SCH (08:00)
[2021-12-17] MEDS: amLODIPine 5 MG TABLET PO SCH (08:28)
[2021-12-17] MEDS: *HR* Glimepiride 2 MG TABLET PO SCH (08:28)
[2021-12-17] MEDS: *HR* Metformin 500 MG TABLET PO SCH ×2 (08:28→17:08)
[2021-12-17] MEDS: carvediloL 6.25 MG TABLET PO SCH ×2 (08:28→17:09)
[2021-12-17] MEDS: FLUoxetine 20 MG CAPSULE PO SCH (08:28)
[2021-12-17] MEDS: Aspirin Enteric Coated 81 MG Tablet PO SCH (08:28)
[2021-12-17] MEDS: Insulin LISPRO 300 UNITS/3 ML VIAL SUBQ SCH ×4 (08:29→21:22)
[2021-12-17 09:15] LABS: BUN/Creatinine Ratio 12 (6-26); Blood Urea Nitrogen 10 mg/dL (8-23); Calcium 8.9 mg/dL (8.6-10.3); Carbon Dioxide 22 mEq/L (23-29); Chloride 100 mEq/L (98-107); Glucose 147 mg/dL (70-105); Osmolality,Calculated 280 (280-300); Potassium 3.2 mEq/L (3.5-5.1); Sodium 134 mEq/L (136-145); eGFR For African Americans > 60 (> 60); eGFR For Non-African Americans > 60 (> 60)
[2021-12-17] MEDS: Vancomycin 1,250 MG/262.5 ML IV.SOLN IVPB SCH (21:21)
[2021-12-18 05:40] LABS: BUN/Creatinine Ratio 12 (6-26); Blood Urea Nitrogen 15 mg/dL (8-23); Carbon Dioxide 24 mEq/L (23-29); Chloride 102 mEq/L (98-107); Glucose 151 mg/dL (70-105); Osmolality,Calculated 286 (280-300); Potassium 3.6 mEq/L (3.5-5.1); Sodium 136 mEq/L (136-145); eGFR For African Americans > 60 (> 60); eGFR For Non-African Americans 58 (> 60)
[2021-12-18] MEDS: *HR* Enoxaparin 40 MG/0.4 ML SYRINGE SQ SCH (06:09)
[2021-12-18] MEDS: amLODIPine 5 MG TABLET PO SCH (08:11)
[2021-12-18] MEDS: FLUoxetine 20 MG CAPSULE PO SCH (08:12)
[2021-12-18] MEDS: Aspirin Enteric Coated 81 MG Tablet PO SCH (08:12)
[2021-12-18] MEDS: *HR* Glimepiride 2 MG TABLET PO SCH (08:12)
[2021-12-18] MEDS: *HR* Metformin 500 MG TABLET PO SCH ×2 (08:13→18:31)
[2021-12-18] MEDS: Insulin LISPRO 300 UNITS/3 ML VIAL SUBQ SCH ×4 (08:18→21:22)
[2021-12-18] MEDS: carvediloL 6.25 MG TABLET PO SCH ×2 (08:49→18:32)
[2021-12-18] MEDS: Vancomycin 1,250 MG/262.5 ML IV.SOLN IVPB SCH (09:02)
[2021-12-18] MEDS ORDERED: Ondansetron ODT 4 MG TAB.RAPDIS SL PRN (17:00)
[2021-12-19] MEDS: *HR* Enoxaparin 40 MG/0.4 ML SYRINGE SQ SCH (06:53)
[2021-12-19] MEDS: Insulin LISPRO 300 UNITS/3 ML VIAL SUBQ SCH ×4 (08:35→21:12)
[2021-12-19] MEDS: amLODIPine 5 MG TABLET PO SCH (08:41)
[2021-12-19] MEDS: Aspirin Enteric Coated 81 MG Tablet PO SCH (08:41)
[2021-12-19] MEDS: carvediloL 6.25 MG TABLET PO SCH ×2 (08:42→17:22)
[2021-12-19] MEDS: FLUoxetine 20 MG CAPSULE PO SCH (08:42)
[2021-12-19] MEDS: *HR* Metformin 500 MG TABLET PO SCH ×2 (08:42→17:22)
[2021-12-19] MEDS: *HR* Glimepiride 2 MG TABLET PO SCH (08:42)
[2021-12-19 09:05] LABS: Basophils # 0.1 K/mcL (0.0-0.2); Eosinophils # 0.3 K/mcL (0.0-0.6); Eosinophils % 2.9 %; Hematocrit 33.3 % (37.5-50.1); Hemoglobin 11.4 g/dL (12.9-16.9); Immature Granulocytes % 0.3 % (0-4); Lymphocytes % 14.1 %; Mean Corpuscular HGB Conc 34.2 g/dL (31.6-35.5); Mean Corpuscular Hemoglobin 30.1 pg (28.0-33.3); Mean Corpuscular Volume 87.9 fL (83.0-100.0); Mean Platelet Volume 10.9 fL (9.4-12.4); Monocytes # 1.2 K/mcL (0.0-1.3); Monocytes % 10.2 %; Platelet Count 377 K/mcL (140-400); Red Blood Count 3.79 M/mcL (4.19-5.50); Red Cell Distribution Width 12.8 % (11.5-14.5); Segmented Neutrophils % 71.5 %; White Blood Count 11.7 K/mcL (4.3-11.1)
[2021-12-19 09:08] LABS: Lymphocytes # 1.7 K/mcL (0.6-4.6); Neutrophils # 8.4 K/mcL (1.6-8.9)
[2021-12-19 09:19] LABS: BUN/Creatinine Ratio 11 (6-26); Blood Urea Nitrogen 14 mg/dL (8-23); Calcium 9.2 mg/dL (8.6-10.3); Carbon Dioxide 27 mEq/L (23-29); Chloride 100 mEq/L (98-107); Glucose 161 mg/dL (70-105); Osmolality,Calculated 286 (280-300); Potassium 3.7 mEq/L (3.5-5.1); Sodium 136 mEq/L (136-145); eGFR For African Americans > 60 (> 60); eGFR For Non-African Americans 59 (> 60)
[2021-12-19] MEDS ORDERED: Vancomycin 500 MG in 0.9 % Sodium Chloride Mini Bag 100 ML IVPB ONE (11:00)
[2021-12-20] MEDS: *HR* Enoxaparin 40 MG/0.4 ML SYRINGE SQ SCH (06:08)
[2021-12-20] MEDS: Insulin LISPRO 300 UNITS/3 ML VIAL SUBQ SCH ×4 (08:30→20:30)
[2021-12-20] MEDS: *HR* Glimepiride 2 MG TABLET PO SCH (08:36)
[2021-12-20] MEDS: Aspirin Enteric Coated 81 MG Tablet PO SCH (08:39)
[2021-12-20] MEDS: carvediloL 6.25 MG TABLET PO SCH ×2 (08:39→17:07)
[2021-12-20] MEDS: FLUoxetine 20 MG CAPSULE PO SCH (08:39)
[2021-12-20] MEDS: *HR* Metformin 500 MG TABLET PO SCH ×2 (08:39→17:07)
[2021-12-20] MEDS: amLODIPine 5 MG TABLET PO SCH (08:39)
[2021-12-20] MEDS: Vancomycin 1,250 MG/262.5 ML IV.SOLN IVPB SCH (11:54)
[2021-12-21] MEDS: *HR* Enoxaparin 40 MG/0.4 ML SYRINGE SQ SCH (04:26)
[2021-12-21 04:41] LABS: Hematocrit 32.2 % (37.5-50.1); Hemoglobin 11.1 g/dL (12.9-16.9); Mean Corpuscular HGB Conc 34.5 g/dL (31.6-35.5); Mean Corpuscular Hemoglobin 29.8 pg (28.0-33.3); Mean Corpuscular Volume 86.6 fL (83.0-100.0); Mean Platelet Volume 10.9 fL (9.4-12.4); Platelet Count 373 K/mcL (140-400); Red Blood Count 3.72 M/mcL (4.19-5.50); Red Cell Distribution Width 12.9 % (11.5-14.5); White Blood Count 9.3 K/mcL (4.3-11.1)
[2021-12-21 04:53] LABS: BUN/Creatinine Ratio 11 (6-26); Blood Urea Nitrogen 14 mg/dL (8-23); Carbon Dioxide 27 mEq/L (23-29); Chloride 102 mEq/L (98-107); Glucose 137 mg/dL (70-105); Magnesium 1.5 mg/dL (1.6-2.6); Osmolality,Calculated 289 (280-300); Potassium 3.3 mEq/L (3.5-5.1); Sodium 138 mEq/L (136-145); eGFR For African Americans > 60 (> 60); eGFR For Non-African Americans 58 (> 60)
[2021-12-21] MEDS: Insulin LISPRO 300 UNITS/3 ML VIAL SUBQ SCH ×4 (08:34→19:36)
[2021-12-21] MEDS: *HR* Metformin 500 MG TABLET PO SCH ×2 (08:46→17:04)
[2021-12-21] MEDS: *HR* Glimepiride 2 MG TABLET PO SCH (08:46)
[2021-12-21] MEDS: Aspirin Enteric Coated 81 MG Tablet PO SCH (08:46)
[2021-12-21] MEDS: amLODIPine 5 MG TABLET PO SCH (08:46)
[2021-12-21] MEDS: FLUoxetine 20 MG CAPSULE PO SCH (08:46)
[2021-12-21] MEDS: carvediloL 6.25 MG TABLET PO SCH ×2 (08:49→17:04)
[2021-12-21] MEDS: Vancomycin 1,250 MG/262.5 ML IV.SOLN IVPB SCH (11:06)
[2021-12-21] MEDS: Magnesium Oxide 400 MG TABLET PO SCH (12:23)
[2021-12-22] MEDS: *HR* Enoxaparin 40 MG/0.4 ML SYRINGE SQ SCH (06:15)
[2021-12-22] MEDS: Vancomycin 1,500 MG/265 ML IV.SOLN IVPB SCH (06:15)
[2021-12-22] MEDS: Aspirin Enteric Coated 81 MG Tablet PO SCH (08:13)
[2021-12-22] MEDS: Magnesium Oxide 400 MG TABLET PO SCH (08:13)
[2021-12-22] MEDS: amLODIPine 5 MG TABLET PO SCH (08:13)
[2021-12-22] MEDS: *HR* Metformin 500 MG TABLET PO SCH ×2 (08:14→16:21)
[2021-12-22] MEDS: *HR* Glimepiride 2 MG TABLET PO SCH (08:14)
[2021-12-22] MEDS: FLUoxetine 20 MG CAPSULE PO SCH (08:15)
[2021-12-22] MEDS: Insulin LISPRO 300 UNITS/3 ML VIAL SUBQ SCH ×4 (08:44→20:14)
[2021-12-22] MEDS: carvediloL 6.25 MG TABLET PO SCH ×2 (08:45→16:21)
[2021-12-23 04:35] LABS: Basophils # 0.2 K/mcL (0.0-0.2); Basophils % 1.5 %; Eosinophils # 0.4 K/mcL (0.0-0.6); Eosinophils % 3.5 %; Immature Granulocytes % 0.5 % (0-4); Lymphocytes % 18.6 %; Mean Corpuscular HGB Conc 34.4 g/dL (31.6-35.5); Mean Corpuscular Hemoglobin 29.8 pg (28.0-33.3); Mean Corpuscular Volume 86.7 fL (83.0-100.0); Monocytes # 1.1 K/mcL (0.0-1.3); Monocytes % 9.9 %; Neutrophils # 7.2 K/mcL (1.6-8.9); Platelet Count 348 K/mcL (140-400); Red Blood Count 3.69 M/mcL (4.19-5.50); Red Cell Distribution Width 12.9 % (11.5-14.5); White Blood Count 10.9 K/mcL (4.3-11.1)
[2021-12-23 04:51] LABS: BUN/Creatinine Ratio 11 (6-26); Blood Urea Nitrogen 15 mg/dL (8-23); Carbon Dioxide 27 mEq/L (23-29); Chloride 103 mEq/L (98-107); Glucose 130 mg/dL (70-105); Osmolality,Calculated 289 (280-300); Potassium 3.4 mEq/L (3.5-5.1); Sodium 138 mEq/L (136-145); eGFR For African Americans > 60 (> 60); eGFR For Non-African Americans 54 (> 60)
[2021-12-23] MEDS: Vancomycin 1,500 MG/265 ML IV.SOLN IVPB SCH (06:24)
[2021-12-23] MEDS: *HR* Enoxaparin 40 MG/0.4 ML SYRINGE SQ SCH (06:24)
[2021-12-23] MEDS: FLUoxetine 20 MG CAPSULE PO SCH (08:36)
[2021-12-23] MEDS: *HR* Metformin 500 MG TABLET PO SCH ×2 (08:36→16:12)
[2021-12-23] MEDS: amLODIPine 5 MG TABLET PO SCH (08:37)
[2021-12-23] MEDS: Aspirin Enteric Coated 81 MG Tablet PO SCH (08:37)
[2021-12-23] MEDS: Magnesium Oxide 400 MG TABLET PO SCH (08:38)
[2021-12-23] MEDS: *HR* Glimepiride 2 MG TABLET PO SCH (08:38)
[2021-12-23] MEDS: Insulin LISPRO 300 UNITS/3 ML VIAL SUBQ SCH ×4 (08:49→20:43)
[2021-12-23] MEDS: carvediloL 6.25 MG TABLET PO SCH ×2 (08:51→18:18)
[2021-12-24] MEDS: Vancomycin 1,500 MG/265 ML IV.SOLN IVPB SCH (06:41)
[2021-12-24] MEDS: *HR* Enoxaparin 40 MG/0.4 ML SYRINGE SQ SCH (06:44)
[2021-12-24] MEDS: carvediloL 6.25 MG TABLET PO SCH ×2 (07:47→16:32)
[2021-12-24] MEDS: *HR* Metformin 500 MG TABLET PO SCH ×2 (07:47→16:30)
[2021-12-24] MEDS: FLUoxetine 20 MG CAPSULE PO SCH (07:48)
[2021-12-24] MEDS: Aspirin Enteric Coated 81 MG Tablet PO SCH (07:48)
[2021-12-24] MEDS: *HR* Glimepiride 2 MG TABLET PO SCH (07:48)
[2021-12-24] MEDS: Insulin LISPRO 300 UNITS/3 ML VIAL SUBQ SCH ×4 (07:48→20:07)
[2021-12-24] MEDS: amLODIPine 5 MG TABLET PO SCH (07:48)
[2021-12-24] MEDS: Magnesium Oxide 400 MG TABLET PO SCH (07:48)
[2021-12-24] MEDS: metroNIDAZOLE 500 MG TABLET PO SCH ×2 (16:32→20:11)
[2021-12-25 04:51] LABS: Basophils # 0.2 K/mcL (0.0-0.2); Basophils % 1.5 %; Eosinophils # 0.4 K/mcL (0.0-0.6); Eosinophils % 3.9 %; Hematocrit 33.1 % (37.5-50.1); Immature Granulocytes % 0.5 % (0-4); Lymphocytes # 1.9 K/mcL (0.6-4.6); Lymphocytes % 17.7 %; Mean Corpuscular HGB Conc 33.2 g/dL (31.6-35.5); Mean Corpuscular Hemoglobin 29.2 pg (28.0-33.3); Mean Corpuscular Volume 87.8 fL (83.0-100.0); Mean Platelet Volume 11.3 fL (9.4-12.4); Monocytes # 1.1 K/mcL (0.0-1.3); Monocytes % 10.8 %; Neutrophils # 6.9 K/mcL (1.6-8.9); Platelet Count 343 K/mcL (140-400); Red Blood Count 3.77 M/mcL (4.19-5.50); Red Cell Distribution Width 13.1 % (11.5-14.5); Segmented Neutrophils % 65.6 %; White Blood Count 10.5 K/mcL (4.3-11.1)
[2021-12-25 05:45] LABS: BUN/Creatinine Ratio 14 (6-26); Blood Urea Nitrogen 18 mg/dL (8-23); Carbon Dioxide 25 mEq/L (23-29); Chloride 104 mEq/L (98-107); Glucose 115 mg/dL (70-105); Osmolality,Calculated 293 (280-300); Potassium 3.4 mEq/L (3.5-5.1); Sodium 140 mEq/L (136-145); eGFR For African Americans > 60 (> 60); eGFR For Non-African Americans 57 (> 60)
[2021-12-25] MEDS: Vancomycin 1,500 MG/265 ML IV.SOLN IVPB SCH (06:41)
[2021-12-25] MEDS: *HR* Enoxaparin 40 MG/0.4 ML SYRINGE SQ SCH (06:44)
[2021-12-25] MEDS: carvediloL 6.25 MG TABLET PO SCH ×2 (08:35→17:12)
[2021-12-25] MEDS: amLODIPine 5 MG TABLET PO SCH (08:36)
[2021-12-25] MEDS: FLUoxetine 20 MG CAPSULE PO SCH (08:36)
[2021-12-25] MEDS: Aspirin Enteric Coated 81 MG Tablet PO SCH (08:36)
[2021-12-25] MEDS: metroNIDAZOLE 500 MG TABLET PO SCH ×3 (08:36→20:26)
[2021-12-25] MEDS: *HR* Metformin 500 MG TABLET PO SCH ×2 (08:36→17:12)
[2021-12-25] MEDS: *HR* Glimepiride 2 MG TABLET PO SCH (08:36)
[2021-12-25] MEDS: Insulin LISPRO 300 UNITS/3 ML VIAL SUBQ SCH ×4 (08:37→20:32)
[2021-12-25] MEDS: Magnesium Oxide 400 MG TABLET PO SCH (08:37)
[2021-12-26 05:32] LABS: eGFR For African Americans > 60 (> 60); eGFR For Non-African Americans 59 (> 60)
[2021-12-26] MEDS: Vancomycin 1,500 MG/265 ML IV.SOLN IVPB SCH (06:36)
[2021-12-26] MEDS: *HR* Enoxaparin 40 MG/0.4 ML SYRINGE SQ SCH (06:38)
[2021-12-26] MEDS: Insulin LISPRO 300 UNITS/3 ML VIAL SUBQ SCH ×4 (07:59→21:16)
[2021-12-26] MEDS: *HR* Metformin 500 MG TABLET PO SCH ×2 (08:05→16:17)
[2021-12-26] MEDS: carvediloL 6.25 MG TABLET PO SCH ×2 (08:05→16:18)
[2021-12-26] MEDS: Aspirin Enteric Coated 81 MG Tablet PO SCH (08:06)
[2021-12-26] MEDS: amLODIPine 5 MG TABLET PO SCH (08:06)
[2021-12-26] MEDS: Magnesium Oxide 400 MG TABLET PO SCH (08:06)
[2021-12-26] MEDS: metroNIDAZOLE 500 MG TABLET PO SCH ×3 (08:06→21:16)
[2021-12-26] MEDS: *HR* Glimepiride 2 MG TABLET PO SCH (08:06)
[2021-12-26] MEDS: FLUoxetine 20 MG CAPSULE PO SCH (08:06)
[2021-12-27 05:23] LABS: eGFR For African Americans > 60 (> 60); eGFR For Non-African Americans 59 (> 60)
[2021-12-27] MEDS: Vancomycin 1,500 MG/265 ML IV.SOLN IVPB SCH (05:58)
[2021-12-27] MEDS: *HR* Enoxaparin 40 MG/0.4 ML SYRINGE SQ SCH (05:59)
[2021-12-27] MEDS: Insulin LISPRO 300 UNITS/3 ML VIAL SUBQ SCH ×4 (08:36→20:42)
[2021-12-27] MEDS: FLUoxetine 20 MG CAPSULE PO SCH (08:37)
[2021-12-27] MEDS: metroNIDAZOLE 500 MG TABLET PO SCH ×3 (08:37→20:42)
[2021-12-27] MEDS: *HR* Glimepiride 2 MG TABLET PO SCH (08:38)
[2021-12-27] MEDS: Magnesium Oxide 400 MG TABLET PO SCH (08:38)
[2021-12-27] MEDS: amLODIPine 5 MG TABLET PO SCH (08:38)
[2021-12-27] MEDS: *HR* Metformin 500 MG TABLET PO SCH ×2 (08:38→16:41)
[2021-12-27] MEDS: carvediloL 6.25 MG TABLET PO SCH ×2 (08:38→16:42)
[2021-12-27] MEDS: Aspirin Enteric Coated 81 MG Tablet PO SCH (08:38)
[2021-12-28] MEDS: *HR* Enoxaparin 40 MG/0.4 ML SYRINGE SQ SCH (06:17)
[2021-12-28 06:30] LABS: eGFR For African Americans > 60 (> 60); eGFR For Non-African Americans > 60 (> 60)
[2021-12-28] MEDS: Insulin LISPRO 300 UNITS/3 ML VIAL SUBQ SCH ×4 (07:21→20:00)
[2021-12-28] MEDS: amLODIPine 5 MG TABLET PO SCH (07:30)
[2021-12-28] MEDS: FLUoxetine 20 MG CAPSULE PO SCH (07:31)
[2021-12-28] MEDS: Magnesium Oxide 400 MG TABLET PO SCH (07:31)
[2021-12-28] MEDS: Aspirin Enteric Coated 81 MG Tablet PO SCH (07:31)
[2021-12-28] MEDS: *HR* Glimepiride 2 MG TABLET PO SCH (07:31)
[2021-12-28] MEDS: carvediloL 6.25 MG TABLET PO SCH ×2 (07:32→16:42)
[2021-12-28] MEDS: metroNIDAZOLE 500 MG TABLET PO SCH ×3 (07:32→19:37)
[2021-12-28] MEDS: *HR* Metformin 500 MG TABLET PO SCH ×2 (07:32→16:42)
[2021-12-28] MEDS: Vancomycin 1,500 MG/265 ML IV.SOLN IVPB SCH ×2 (11:35→12:20)
[2021-12-29] MEDS: *HR* Enoxaparin 40 MG/0.4 ML SYRINGE SQ SCH (04:16)
[2021-12-29 05:05] LABS: Basophils # 0.1 K/mcL (0.0-0.2); Basophils % 1.5 %; Eosinophils # 0.6 K/mcL (0.0-0.6); Eosinophils % 6.6 %; Hematocrit 32.4 % (37.5-50.1); Hemoglobin 10.9 g/dL (12.9-16.9); Immature Granulocytes % 0.5 % (0-4); Lymphocytes # 2.1 K/mcL (0.6-4.6); Mean Corpuscular HGB Conc 33.6 g/dL (31.6-35.5); Mean Corpuscular Hemoglobin 29.5 pg (28.0-33.3); Mean Corpuscular Volume 87.6 fL (83.0-100.0); Mean Platelet Volume 11.7 fL (9.4-12.4); Monocytes # 1.2 K/mcL (0.0-1.3); Monocytes % 12.8 %; Neutrophils # 5.3 K/mcL (1.6-8.9); Platelet Count 323 K/mcL (140-400); Red Cell Distribution Width 13.2 % (11.5-14.5); Segmented Neutrophils % 56.6 %; White Blood Count 9.3 K/mcL (4.3-11.1)
[2021-12-29 05:18] LABS: BUN/Creatinine Ratio 18 (6-26); Blood Urea Nitrogen 22 mg/dL (8-23); Carbon Dioxide 29 mEq/L (23-29); Chloride 102 mEq/L (98-107); Glucose 130 mg/dL (70-105); Osmolality,Calculated 293 (280-300); Potassium 3.2 mEq/L (3.5-5.1); Sodium 139 mEq/L (136-145); eGFR For African Americans > 60 (> 60); eGFR For Non-African Americans > 60 (> 60)
[2021-12-29] MEDS: Insulin LISPRO 300 UNITS/3 ML VIAL SUBQ SCH ×4 (07:11→19:28)
[2021-12-29] MEDS: *HR* Glimepiride 2 MG TABLET PO SCH (08:18)
[2021-12-29] MEDS: Aspirin Enteric Coated 81 MG Tablet PO SCH (08:18)
[2021-12-29] MEDS: carvediloL 6.25 MG TABLET PO SCH ×2 (08:18→16:58)
[2021-12-29] MEDS: Magnesium Oxide 400 MG TABLET PO SCH (08:18)
[2021-12-29] MEDS: FLUoxetine 20 MG CAPSULE PO SCH (08:18)
[2021-12-29] MEDS: amLODIPine 5 MG TABLET PO SCH (08:19)
[2021-12-29] MEDS: *HR* Metformin 500 MG TABLET PO SCH ×2 (08:19→16:58)
[2021-12-29] MEDS: metroNIDAZOLE 500 MG TABLET PO SCH ×3 (08:20→19:30)
[2021-12-29] MEDS: Vancomycin 1,500 MG/265 ML IV.SOLN IVPB SCH (12:30)
[2021-12-30] MEDS: *HR* Enoxaparin 40 MG/0.4 ML SYRINGE SQ SCH (06:19)
[2021-12-30] MEDS: Insulin LISPRO 300 UNITS/3 ML VIAL SUBQ SCH ×4 (07:50→20:59)
[2021-12-30] MEDS: amLODIPine 5 MG TABLET PO SCH (07:54)
[2021-12-30] MEDS: FLUoxetine 20 MG CAPSULE PO SCH (07:54)
[2021-12-30] MEDS: *HR* Metformin 500 MG TABLET PO SCH ×2 (07:54→16:16)
[2021-12-30] MEDS: Magnesium Oxide 400 MG TABLET PO SCH (07:54)
[2021-12-30] MEDS: carvediloL 6.25 MG TABLET PO SCH ×2 (07:54→16:16)
[2021-12-30] MEDS: Aspirin Enteric Coated 81 MG Tablet PO SCH (07:54)
[2021-12-30] MEDS: metroNIDAZOLE 500 MG TABLET PO SCH ×3 (07:54→21:03)
[2021-12-30] MEDS: *HR* Glimepiride 2 MG TABLET PO SCH (07:55)
[2021-12-30] MEDS: Vancomycin 1,500 MG/265 ML IV.SOLN IVPB SCH (12:02)
[2021-12-30 19:54] VITALS: RESP 15
[2021-12-31] MEDS: *HR* Enoxaparin 40 MG/0.4 ML SYRINGE SQ SCH (04:24)
[2021-12-31 05:20] LABS: Hematocrit 32.4 % (37.5-50.1); Mean Corpuscular Hemoglobin 29.8 pg (28.0-33.3); Mean Corpuscular Volume 87.8 fL (83.0-100.0); Platelet Count 330 K/mcL (140-400); Red Blood Count 3.69 M/mcL (4.19-5.50); Red Cell Distribution Width 13.3 % (11.5-14.5); White Blood Count 10.6 K/mcL (4.3-11.1)
[2021-12-31 07:05] LABS: Alanine Aminotransferase 27 Units/L (7-52); Albumin 3.3 g/dL (3.5-5.7); Alkaline Phosphatase 78 Units/L (34-104); Aspartate Amino Transferase 28 Units/L (13-39); BUN/Creatinine Ratio 18 (6-26); Bilirubin,Total 0.5 mg/dL (0.3-1.0); Blood Urea Nitrogen 20 mg/dL (8-23); Carbon Dioxide 26 mEq/L (23-29); Chloride 105 mEq/L (98-107); Glucose 120 mg/dL (70-105); Magnesium 1.4 mg/dL (1.6-2.6); Osmolality,Calculated 300 (280-300); Potassium 3.3 mEq/L (3.5-5.1); Sodium 143 mEq/L (136-145); eGFR For African Americans > 60 (> 60); eGFR For Non-African Americans > 60 (> 60)
[2021-12-31 07:42] VITALS: BP 169/78; PULSE 61; TEMP 98.5; O2SAT 95
[2021-12-31] MEDS: carvediloL 6.25 MG TABLET PO SCH ×2 (07:57→16:19)
[2021-12-31] MEDS: amLODIPine 5 MG TABLET PO SCH (07:57)
[2021-12-31] MEDS: FLUoxetine 20 MG CAPSULE PO SCH (07:57)
[2021-12-31] MEDS: *HR* Metformin 500 MG TABLET PO SCH ×2 (07:57→16:19)
[2021-12-31] MEDS: Aspirin Enteric Coated 81 MG Tablet PO SCH (07:57)
[2021-12-31] MEDS: *HR* Glimepiride 2 MG TABLET PO SCH (07:57)
[2021-12-31] MEDS: Magnesium Oxide 400 MG TABLET PO SCH (07:58)
[2021-12-31] MEDS: metroNIDAZOLE 500 MG TABLET PO SCH ×2 (07:58→16:20)
[2021-12-31] MEDS: Insulin LISPRO 300 UNITS/3 ML VIAL SUBQ SCH ×3 (08:01→16:21)
[2021-12-31 11:07] LABS: Albumin/Globulin Ratio 1.1 (1.1-2.2); Globulin 2.9 g/dL (2.4-3.5); Total Protein 6.2 g/dL (6.4-8.9)
[2021-12-31] MEDS: Vancomycin 1,500 MG/265 ML IV.SOLN IVPB SCH (12:01)
[2021-12-31 15:02] LABS: C-Reactive Protein < 5 mg/L (Less than 10)
== END 2021-12-31 17:50 | DRG 638 ==
LOC: INPGRE 15:24
PROVIDERS: ADMIT Family Medicine; ATTEND Family Medicine